=== PATIENT | male | born 1960 | race Caucasian/White ===

== ENCOUNTER 2021-06-15 12:44 | Emergency (ER) | payer SELFPAY ==
[2021-06-15 13:11] VITALS: BP 121/77; PULSE 80; RESP 16; TEMP 36.6; O2SAT 96; BMI 19.5
--- NOTE | 2021-06-15 13:23 | XR_ITS ---
WS: [id number] LEFT ELBOW: 3 VIEW(S) TECHNIQUE: AP, oblique and lateral. HISTORY: left elbow swelling COMPARISON: None available. No acute fractures or dislocation. No joint effusion. There is increased soft tissue mass and increased density is due to the olecranon extending above and below the joint. Most consistent with olecranon bursitis. XR/XR elbow LT min 3V* [id number] IMPRESSION: 1. No fracture. 2. Increased soft tissue posterior to the olecranon. Most likely due to olecra non bursitis. With recent trauma cannot exclude a small amount of hemorrhage in the bursa.
--- NOTE | 2021-06-15 13:51 | W.ED.EXTPRO ---
HPI - Extremity Problem General: Chief complaint: Extremity Injury, Upper Stated complaint: Left Elbow swollen Time Seen by Provider: 06/15/21 13:19 History of Present Illness: Patient is a 60-year-old male who comes to the ED with left elbow swelling. Patient says that approximately 2 weeks ago he hit his left elbow against a car door. Ever since then he has had this swelling on his left elbow. it is not painful and does not restrict any elbow movement. No warmth patient denies any other symptoms with it. He has tried putting cold packs and taking ibuprofen to help with swelling and he says the swelling is about the same as it was a week ago. Associated symptoms: Deny chest pain, fever(s) or rash Review of Systems Const: Denies: fever(s), chills or fatigue Eyes: Denies: change in vision or eye discomfort ENMT: Denies: throat pain, odynophagia, nasal discharge or nasal congestion Card: Denies: chest pain, palpitations, edema, swelling of feet/ankles, dyspnea on exertion or orthopnea Resp: Denies: dyspnea, productive cough or non-productive cough GI: Denies: abdominal pain, nausea, vomiting, diarrhea, constipation or hematochezia : Denies: flank pain, difficulty urinating, dysuria or hematuria Musc: Reports: extremity swelling (left elbow); Denies: neck pain or back pain Skin/Breast: Denies: rash or new lesions Neuro: Denies: headache(s), numbness in extremities or weakness in extremities PFS ED PFSH: Medical History No pertinent family history Surgical History No pertinent past surgical history Physical Exam Const: COMMON NORMALS: no acute distress, patient oriented x3, healthy appearing and alert GENERAL APPEARANCE: cooperative and comfortable HENMT: COMMON NORMALS: normocephalic HEAD & SCALP: normocephalic MOUTH: Normal oral and palatal mucosa present THROAT: posterior oropharynx normal and uvula midline Neck/C-Spine: COMMON NORMALS: supple GENERAL: Yes normal visual inspection Resp: COMMON NORMALS: normal respiratory effort, No retractions, No use of accessory muscles and clear to auscultation bilaterally AUSCULTATION: clear to auscultation bilaterally Cardio: COMMON NORMALS: regular rate, regular rhythm, S1 normal heart sound present, S2 normal heart sound present, No gallops present (Cardio), No clicks present (Cardio), No murmurs present (Cardio) and Peripheral pulses 2+ throughout RATE: regular rate RHYTHM: regular rhythm HEART SOUNDS: S1 normal heart sound present and S2 normal heart sound present PERIPHERAL PULSES: Peripheral pulses 2+ throughout GI: COMMON NORMALS: Normal to inspection, nondistended, normoactive bowel sounds present, Soft to palpation, non-tender and no masses PALPATION: Yes Soft to palpation : COMMON NORMALS: Yes no CVA tenderness BLADDER/KIDNEY EXAM: Yes no CVA tenderness Back/Pelvis: COMMON NORMALS: no CVA tenderness Extremity: NARRATIVE EXTREMITY EXAM: Left elbow?full range of motion. No erythema, tenderness or warmth around elbow joint. Palpable swollen pocket of fluid. No signs of any cellulitis or any other type of infection noted. Neuro: COMMON NORMALS: patient oriented x3 SENSORIUM/ORIENTATION: Yes alert GAIT: Yes Normal gait present Skin: GENERAL SKIN EXAM: dry skin Course Vital Signs: Vital signs: Vital Signs Temperature 97.9 F 06/15/21 13:11 Pulse Rate 80 06/15/21 13:11 Respiratory Rate 16 06/15/21 13:11 Blood Pressure 121/77 06/15/21 13:11 Pulse Oximetry 96 06/15/21 13:11 MDM - Extremity (Nontraumatic) Medical Decision Making Patient is a 60-year-old male comes to the ED with left elbow swelling. 2 weeks ago patient says he hit his elbow against a car door. Since then he has had the swelling in his elbow. Denies any pain. Patient appears nontoxic and in no acute distress or pain. Vitals stable. He has full range of motion in elbow. No erythema or warmth or any signs of infection or septic joint. Pocket of palpable fluid right over the olecranon. X-ray of left elbow shows no acute fractures or findings. Patient diagnosed with olecranon bursitis. He was discharged home and told to follow-up with his primary care physician in the next 3 to 5 days to be reevaluated to possibly have fluid drained off elbow. He was discharged with some Franklin wrap to used to compress elbow to help with swelling. Return to ED precautions given. Patient understood agree with plan. Lab Data Radiology Impressions Elbow X-Ray 06/15/21 13:23 IMPRESSION: 1. No fracture. 2. Increased soft tissue posterior to the olecranon. Most likely due to olecranon bursitis. With recent trauma cannot exclude a small amount of hemorrhage in the bursa. Discharge Plan Discharge Patient Disposition: Home Clinical Impression: Bursitis, olecranon Qualifiers: Laterality: left Qualified Code(s): M70.22 - Olecranon bursitis, left elbow Condition: Stable Prescriptions: No Action No Known Home Medications 0RF methylprednisolone [Medrol (Chip)] 4 mg tablets,dose pack See Rx Instructions PO PER PKG DIR Qty: 21 0RF Rx Instructions: PO PER PKG DIR azithromycin [Zithromax] 500 mg tablet 500 mg PO DAILY Qty: 5 0RF Ed A-Hist DM 4-10-15 mg/5 mL liquid 5 ml PO Q6H PRN (Reason: cold symptoms) Qty: 160 0RF Discharge Orders: Discharge ED (Routine); Ordered 06/15/21 Ordered By: Jose Hicks Discharge Diet: Regular Discharge Activity: Resume usual activity Patient Instructions: Elbow Bursitis (ED) Activity Restrictions/Additional Instructions: Follow-up with medical provider as directed in 5 to 7 days for reevaluation and they can possibly drain fluid out there in office. Compress elbow with Franklin wrap to try and reduce swelling. Apply cold pack as well. Return to the ER or your medical provider if condition worsens. Please read and understand discharge instructions. Thank you for choosing [facility] for your healthcare needs today. Please realize this is an emergency room and that we are providing you with a medical screening exam and this may not be complete and all inclusive of all the testing and or work up that you may need to determine your ailment or severity of your illness. It is very important that you follow up as instructed or that you return to the Emergency Department should you have concerns or if your condition changes or worsens in any way. Coding Level of Care Code ED Digital Advertising Analyst for Cory Almendarez Exam Comprehensive
== END 2021-06-15 14:50 | disposition home or self-care (01) ==
PROVIDERS: Emergency Provider Physician Assistant
DX: M70.22 Olecranon bursitis, left elbow (principal)
CPT/HCPCS: 73080; 99282

== ENCOUNTER 2021-09-01 09:38 | Emergency (ER) | payer SELFPAY ==
[2021-09-01 09:44] VITALS: BP 158/87; PULSE 67; RESP 18; TEMP 36.6; O2SAT 97; BMI 19.3
--- NOTE | 2021-09-01 09:56 | ECG_ITS ---
[facility] Test Date: 2021-09-01 Pat Name: Beto Orourke Department: Room: Gender: Male Junior Technical Writer: : 1960 Requested By: Hudson Bird Order Number: [id number] Hoffmann MD: Debra Bryant M.D. Measurements Intervals [place] Rate: 59 P: 234 HI: 181 QRS: 223 QRSD: 97 T: 244 QT: 387 QTc: 384 Interpretive Statements SINUS BRADYCARDIA POSSIBLE RIGHT VENTRICULAR HYPERTROPHY INFERIOR MYOCARDIAL INFARCTION , OF INDETERMINATE AGE No previous ECG available for comparison Electronically Signed On 09-01-2021 20:21:04 CDT by Debra Bryant M.D. [id number]
--- NOTE | 2021-09-01 09:56 | XR_ITS ---
WS: [id number] PORTABLE CHEST HISTORY: Acute onset chest pain. COMPARISON: 08/23/2018 Lungs are clear and well expanded. No pleural effusion or pneumothorax. Cardiac size: Normal. Mediastinum/Aorta: Normal mediastinum. No osseous abnormality seen. XR/XR chest 1V portable [id number] IMPRESSION: Unremarkable portable chest.
[2021-09-01] MEDS: aspirin 81 mg Chew Tablet 324 MG PO (10:00)
--- NOTE | 2021-09-01 10:05 | W.ED.CHESTPA ---
Documented by User: PAPITO Dodd 09/01/21 13:02 HPI - Chest Pain General: Chief Complaint: Chest Pain Stated Complaint: Chest pains Time Seen by Provider: 09/01/21 09:51 History of Present Illness: Patient states that he had chest pressure developed about 2 weeks ago while he was working. Said he sat down got feeling better just a couple minutes. Events happened prematurely day for short amount time especially on waking. Patient denies any shortness of breath diaphoresis or other problems. 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 Denies any other surgeries are health problems. He says pain does go down to his elbows on both sides when this happens in the morning. Denies any history of reflux. Associated symptoms: Deny abdominal pain, dyspnea, fever(s), nausea or vomiting Review of Systems Const: Denies: fever(s), chills or body aches Eyes: Denies: eye discomfort ENMT: Denies: throat pain Card: Reports: chest pain (Chest pressure like some is on his chest first occurred 2 weeks ago and is ) Resp: Denies: dyspnea GI: Denies: abdominal pain, nausea or vomiting Skin/Breast: Denies: rash Neuro: Denies: headache(s) Psych: Denies: depression or suicidal ideation PFS ED PFSH: Medical History No pertinent family history Surgical History No pertinent past surgical history Physical Exam Const: COMMON NORMALS: no acute distress, patient oriented x3 and alert HENMT: COMMON NORMALS: normocephalic and external ears normal HEAD & SCALP: normocephalic EXTERNAL EAR: Yes external ears normal Eye: COMMON NORMALS: EOMs intact bilaterally Neck/C-Spine: COMMON NORMALS: no JVD Resp: COMMON NORMALS: normal respiratory effort and No use of accessory muscles Cardio: COMMON NORMALS: no JVD GI: INSPECTION: Yes normal to inspection Extremity: COMMON NORMALS: normal to inspection and full ROM Neuro: COMMON NORMALS: patient oriented x3 SENSORIUM/ORIENTATION: Yes alert Psych: COMMON NORMALS: mental status grossly normal Skin: COMMON NORMALS: no rashes or lesions noted GENERAL SKIN EXAM: no rashes or lesions noted Course Vital Signs: Vital signs: Vital Signs Temperature 97.8 F 09/01/21 09:44 Pulse Rate 57 L 09/01/21 10:16 Respiratory Rate 18 09/01/21 09:44 Blood Pressure 157/86 09/01/21 10:16 Pulse Oximetry 94 09/01/21 10:16 MDM - Chest Pain Medical Decision Making Atypical chest pain. Laboratory studies were done radiology and EKG and no concerning findings on laboratory. EKG shows some old typical changes. Chest x-ray looks fine. Patient was was seen in consultation with Dr. Weinstein. Dr. Weinstein personally visit with the patient. Lab Data : 09/01/21 10:07 09/01/21 10:07 Radiology Impressions Chest X-Ray 09/01/21 09:56 IMPRESSION: Unremarkable portable chest. Laboratory Results WBC 8.2 10^3/uL (4.0-10.0) 09/01/21 10:07 RBC 5.17 10^6/uL (4.1-5.3) 09/01/21 10:07 Hgb 15.0 g/dL (11.7-16.6) 09/01/21 10:07 Hct 46.0 % (42.0-52.0) 09/01/21 10:07 MCV 89.0 fl (80-94) 09/01/21 10:07 MCH 29.0 pg (28.0-34.0) 09/01/21 10:07 MCHC 32.6 g/dL (30.0-36.0) 09/01/21 10:07 RDW 13.9 % (12.1-15.1) 09/01/21 10:07 Plt Count 310 10^3/cmm (130-400) 09/01/21 10:07 MPV 10.6 fL (7.4-10.4) H 09/01/21 10:07 Neut % (Auto) 54.5 % 09/01/21 10:07 Lymph % (Auto) 27.6 % 09/01/21 10:07 [place] % (Auto) 7.4 % 09/01/21 10:07 Eos % (Auto) 9.1 % 09/01/21 10:07 Baso % (Auto) 0.9 % 09/01/21 10:07 Neut # (Auto) 4.48 10^3/uL (1.8-7.7) 09/01/21 10:07 Lymph # (Auto) 2.3 10^3/uL (0.8-4.8) 09/01/21 10:07 [place] # (Auto) 0.6 10^3/uL (0.2-0.9) 09/01/21 10:07 Eos # (Auto) 0.8 10^3/uL (0.0-0.8) 09/01/21 10:07 Baso # (Auto) 0.1 10^3/uL (0.0-0.1) 09/01/21 10:07 Nucleated RBC % (auto) 0 % 09/01/21 10:07 Nucleated RBCs # 0.0 /100WBC 09/01/21 10:07 PT 13.50 SECONDS (12.1-14.9) 09/01/21 10:53 INR 1.00 (0.8-1.2) 09/01/21 10:53 D-Dimer 0.12 ug/mIFEU (0-0.59) 09/01/21 10:53 Sodium 135 mmol/L (136-145) L 09/01/21 10:07 Potassium 4.1 mmol/L (3.5-5.1) 09/01/21 10:07 Chloride 101 mmol/L (98-107) 09/01/21 10:07 Carbon Dioxide 23 mmol/L (22-29) 09/01/21 10:07 Anion Gap 15.1 (5-19) 09/01/21 10:07 BUN 17 mg/dL (8-23) 09/01/21 10:07 Creatinine 0.7 mg/dL (0.7-1.2) 09/01/21 10:07 GFR Calculation 114.3 mL/min (90-130) 09/01/21 10:07 Glucose 124 mg/dL (65-115) H 09/01/21 10:07 Calculated Osmolality 283 mOsm/kg (285-295) L 09/01/21 10:07 Calcium 8.7 mg/dL (8.5-10.5) 09/01/21 10:07 Total Bilirubin 0.2 mg/dL (0.15-1.2) 09/01/21 10:07 AST 18 U/L (0-40) 09/01/21 10:07 ALT 11 U/L (0-41) 09/01/21 10:07 Alkaline Phosphatase 75 IU/L (40-130) 09/01/21 10:07 Troponin T Baseline 9 ng/L (0-15) 09/01/21 10:07 Troponin T 120 Minute 6.80 ng/L (0-15) 09/01/21 12:12 Delta Troponin T -2.20 ABS# (0-10) L 09/01/21 12:12 Total Protein 6.5 g/dL (6.6-8.7) L 09/01/21 10:07 Albumin 4.6 g/dL (3.5-5.2) 09/01/21 10:07 Globulin 1.9 g/dL (1.3-4.6) 09/01/21 10:07 EKG Data EKG 1: EKG interpretation date: 09/01/21 EKG interpretation time: 09:44 Computer generated interpretation: Sinus bradycardia with a ventricular rate of 59 bpm possible right ventricular hypertrophy. DC interval 181 ms QRS duration 97 ms QT is 387 ms possible inferior AK with 40+ milliseconds Q wave in leads II and aVF Discharge Plan Discharge Patient Disposition: Home Clinical Impression: Chest pain Condition: Stable Prescriptions: No Action Tylenol Ex Str Rapid Release 500 mg Tablet 500 mg PO Q4H PRN (Reason: Pain) 0RF ibuprofen 200 mg Tablet 400 mg PO Q4H PRN (Reason: Pain) 0RF albuterol sulfate 90 mcg/actuation Hfa Aerosol Inhaler 2 puff INHALATION QID PRN (Reason: Shortness Of Breath) 0RF nicotine (polacrilex) 2 mg Lozenge See Rx Instructions .ROUTE .COMPLEX 0RF Rx Instructions: takes a quarter of a lozenge about 20 times a day prn Discharge Orders: Discharge ED (Routine); Ordered 09/01/21 Ordered By: Hudson Bird Discharge Diet: Usual diet Discharge Activity: Resume usual activity Patient Instructions: Chest Pain (ED) Activity Restrictions/Additional Instructions: Follow-up with medical provider as directed. Take medications as prescribed. Return to the ER or your medical provider if condition worsens. Please read and understand discharge instructions. If any questions ask please. Discussed your primary care provider see about getting appoint with cardiology to talk about a stress test Our onsite case manager will have you follow-up with a Woodwork Teacher in the next few days. You would be expected to have a phone call with our onsite case manager who will put you on the schedule. You can expect a call from us in the next 2-3 days. If you don't hear from us, call us back in the emergency room at [phone]. Come back to the emergency room if your chest pain worsens, have any fever or chills, worsening shortness of breath, worsening exertional lightheadedness, or any new or concerning complaints. Coding Level of Care Code ED Assistant Grocery for Chg Fwd Exam Comprehensive Documented by User: Tim Weinstein MD 09/01/21 18:39 HPI - Chest Pain General: Chief Complaint: Chest Pain Stated Complaint: Chest pains Time Seen by Provider: 09/01/21 09:51 PENDING SALE TO [facility] ED PFSH: Medical History No pertinent family history Surgical History No pertinent past surgical history Course Vital Signs: Vital signs: Vital Signs Temperature 97.8 F 09/01/21 09:44 Pulse Rate 57 L 09/01/21 10:16 Respiratory Rate 18 09/01/21 09:44 Blood Pressure 157/86 09/01/21 10:16 Pulse Oximetry 94 09/01/21 10:16 MDM - Chest Pain Medical Decision Making Atypical chest pain. Laboratory studies were done radiology and EKG and no concerning findings on laboratory. EKG shows some old typical changes. Chest x-ray looks fine. Patient was was seen in consultation with Dr. Weinstein. Dr. Weinstein personally visit with the patient. Dr. Js Duran evaluated patient at bedside today around 1 PM. Patient clinically looks well and has not complain of chest pain. Patient has 2 troponin within normal limit. On EKG review, patient is noted to have Q waves in the anterior leads. Suspect that these are chronic changes. Patient does not have any ST elevation/T wave inversion/ new T wave inversions.Normally in his case, we would admit the patient for cardiac work-up. I offered observation but patient declined citing strong desire to go home. Patient elects to go home with close Cardiology followup. Patient she was to go home, have discussed case with Dr. Omar Meza who recommended close outpatient follow-up. Patient is given strict return precaution for any signs of worsening chest pain, nausea vomiting, fever/chills, diaphoresis, passing out, or any new or concerning complaints. No suspicion for aortic dissection given no widened mediastinum, 2+ upper extremity pulses, or tearing pain. No suspicion for PE given no pleuritic chest pain, recent immobilization or surgery hemoptysis, or other VTE risk factors. EKG is non-ischemic. XR normal. I have given patient follow up with our onsite case manager to be seen by our outpatient Cardiology for close followup of chest pain. Patient aware of a call from our onsite case manager to schedule for appointment(s) and verbalizes understanding of the importance of following up. Lab Data : 09/01/21 10:07 09/01/21 10:07 Radiology Impressions Chest X-Ray 09/01/21 09:56 IMPRESSION: Unremarkable portable chest. Laboratory Results WBC 8.2 10^3/uL (4.0-10.0) 09/01/21 10:07 RBC 5.17 10^6/uL (4.1-5.3) 09/01/21 10:07 Hgb 15.0 g/dL (11.7-16.6) 09/01/21 10:07 Hct 46.0 % (42.0-52.0) 09/01/21 10:07 MCV 89.0 fl (80-94) 09/01/21 10:07 MCH 29.0 pg (28.0-34.0) 09/01/21 10:07 MCHC 32.6 g/dL (30.0-36.0) 09/01/21 10:07 RDW 13.9 % (12.1-15.1) 09/01/21 10:07 Plt Count 310 10^3/cmm (130-400) 09/01/21 10:07 MPV 10.6 fL (7.4-10.4) H 09/01/21 10:07 Neut % (Auto) 54.5 % 09/01/21 10:07 Lymph % (Auto) 27.6 % 09/01/21 10:07 [place] % (Auto) 7.4 % 09/01/21 10:07 Eos % (Auto) 9.1 % 09/01/21 10:07 Baso % (Auto) 0.9 % 09/01/21 10:07 Neut # (Auto) 4.48 10^3/uL (1.8-7.7) 09/01/21 10:07 Lymph # (Auto) 2.3 10^3/uL (0.8-4.8) 09/01/21 10:07 [place] # (Auto) 0.6 10^3/uL (0.2-0.9) 09/01/21 10:07 Eos # (Auto) 0.8 10^3/uL (0.0-0.8) 09/01/21 10:07 Baso # (Auto) 0.1 10^3/uL (0.0-0.1) 09/01/21 10:07 Nucleated RBC % (auto) 0 % 09/01/21 10:07 Nucleated RBCs # 0.0 /100WBC 09/01/21 10:07 PT 13.50 SECONDS (12.1-14.9) 09/01/21 10:53 INR 1.00 (0.8-1.2) 09/01/21 10:53 D-Dimer 0.12 ug/mIFEU (0-0.59) 09/01/21 10:53 Sodium 135 mmol/L (136-145) L 09/01/21 10:07 Potassium 4.1 mmol/L (3.5-5.1) 09/01/21 10:07 Chloride 101 mmol/L (98-107) 09/01/21 10:07 Carbon Dioxide 23 mmol/L (22-29) 09/01/21 10:07 Anion Gap 15.1 (5-19) 09/01/21 10:07 BUN 17 mg/dL (8-23) 09/01/21 10:07 Creatinine 0.7 mg/dL (0.7-1.2) 09/01/21 10:07 GFR Calculation 114.3 mL/min (90-130) 09/01/21 10:07 Glucose 124 mg/dL (65-115) H 09/01/21 10:07 Calculated Osmolality 283 mOsm/kg (285-295) L 09/01/21 10:07 Calcium 8.7 mg/dL (8.5-10.5) 09/01/21 10:07 Total Bilirubin 0.2 mg/dL (0.15-1.2) 09/01/21 10:07 AST 18 U/L (0-40) 09/01/21 10:07 ALT 11 U/L (0-41) 09/01/21 10:07 Alkaline Phosphatase 75 IU/L (40-130) 09/01/21 10:07 Troponin T Baseline 9 ng/L (0-15) 09/01/21 10:07 Troponin T 120 Minute 6.80 ng/L (0-15) 09/01/21 12:12 Delta Troponin T -2.20 ABS# (0-10) L 09/01/21 12:12 Total Protein 6.5 g/dL (6.6-8.7) L 09/01/21 10:07 Albumin 4.6 g/dL (3.5-5.2) 09/01/21 10:07 Globulin 1.9 g/dL (1.3-4.6) 09/01/21 10:07 Imaging Data Other Imaging: Radiologist's impression: [address] [place] [address] XRay Report Signed Patient: Beto Orourke Unit #: [id number] : 1960 Age/Sex: 61 / M ADM Date: 09/01/21 Loc: ER Room/Bed: Attending Dr: Ordering Provider/Ordering MD: Flaco Bird , [facility]- Date of Service: 09/01/21 Procedure(s): XR chest 1V portable [id number] Accession Number(s): [id number] Report Number: [id number] WS: [id number] PORTABLE CHEST HISTORY: Acute onset chest pain. COMPARISON: 08/23/2018 Lungs are clear and well expanded. No pleural effusion or pneumothorax. Cardiac size: Normal. Mediastinum/Aorta: Normal mediastinum. No osseous abnormality seen. XR/XR chest 1V portable [id number] IMPRESSION: ? Unremarkable portable chest. ? ? ? Dictated By: Hope Pettit DO Signed By: Hope Pettit DO Signed Date/Time: 09/01/21 1018 DD/ 1017 Discharge Plan Discharge Patient Disposition: Home Clinical Impression: Chest pain Condition: Stable Prescriptions: No Action Tylenol Ex Str Rapid Release 500 mg Tablet 500 mg PO Q4H PRN (Reason: Pain) 0RF ibuprofen 200 mg Tablet 400 mg PO Q4H PRN (Reason: Pain) 0RF albuterol sulfate 90 mcg/actuation Hfa Aerosol Inhaler 2 puff INHALATION QID PRN (Reason: Shortness Of Breath) 0RF nicotine (polacrilex) 2 mg Lozenge See Rx Instructions .ROUTE .COMPLEX 0RF Rx Instructions: takes a quarter of a lozenge about 20 times a day prn Discharge Orders: Discharge ED (Routine); Ordered 09/01/21 Ordered By: Hudson Bird Discharge Diet: Usual diet Discharge Activity: Resume usual activity Patient Instructions: Chest Pain (ED) Activity Restrictions/Additional Instructions: Follow-up with medical provider as directed. Take medications as prescribed. Return to the ER or your medical provider if condition worsens. Please read and understand discharge instructions. If any questions ask please. Discussed your primary care provider see about getting appoint with cardiology to talk about a stress test Our onsite case manager will have you follow-up with a Woodwork Teacher in the next few days. You would be expected to have a phone call with our onsite case manager who will put you on the schedule. You can expect a call from us in the next 2-3 days. If you don't hear from us, call us back in the emergency room at [phone]. Come back to the emergency room if your chest pain worsens, have any fever or chills, worsening shortness of breath, worsening exertional lightheadedness, or any new or concerning complaints. Coding Level of Care Code ED Assistant Grocery for Cory Almendarez Exam Comprehensive
[2021-09-01 10:16] VITALS: BP 157/86; PULSE 57; O2SAT 94
[2021-09-01 10:19] LABS: Basophils # 0.1 10^3/uL (0.0-0.1); Basophils % 0.9 %; Eosinophils # 0.8 10^3/uL (0.0-0.8); Eosinophils % 9.1 %; Lymphocytes # 2.3 10^3/uL (0.8-4.8); Lymphocytes % 27.6 %; Mean Corpuscular HGB Conc 32.6 g/dL (30.0-36.0); Mean Platelet Volume 10.6 fL (7.4-10.4); Monocytes # 0.6 10^3/uL (0.2-0.9); Monocytes % 7.4 %; Neutrophils # 4.48 10^3/uL (1.8-7.7); Neutrophils % 54.5 %; Nucleated Red Blood Cells % 0 %; Platelet Count 310 10^3/cmm (130-400); Red Blood Count 5.17 10^6/uL (4.1-5.3); Red Cell Distribution Width 13.9 % (12.1-15.1); White Blood Count 8.2 10^3/uL (4.0-10.0)
[2021-09-01 10:45] LABS: Alanine Aminotransferase 11 U/L (0-41); Albumin Level 4.6 g/dL (3.5-5.2); Alkaline Phosphatase 75 IU/L (40-130); Anion Gap 15.1 (5-19); Aspartate Amino Transferase 18 U/L (0-40); Blood Urea Nitrogen 17 mg/dL (8-23); Calcium 8.7 mg/dL (8.5-10.5); Carbon Dioxide 23 mmol/L (22-29); Chloride 101 mmol/L (98-107); Globulin 1.9 g/dL (1.3-4.6); Glomerular Filtration Rate 114.3 mL/min (90-130); Glucose 124 mg/dL (65-115); Osmolality Calculated 283 mOsm/kg (285-295); Potassium 4.1 mmol/L (3.5-5.1); Sodium 135 mmol/L (136-145); Total Bilirubin 0.2 mg/dL (0.15-1.2); Total Protein 6.5 g/dL (6.6-8.7)
[2021-09-01 10:48] LABS: Troponin(5th) Baseline 9 ng/L (0-15)
[2021-09-01 11:53] LABS: D Dimer 0.12 ug/mIFEU (0-0.59)
--- NOTE | 2021-09-01 11:56 | ECG_ITS ---
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 Measurements Intervals [place] Rate: 57 P: CO: QRS: 74 QRSD: 91 T: 83 QT: 386 QTc: 377 Interpretive Statements SUPRAVENTRICULAR BRADYCARDIA SEPTAL MYOCARDIAL INFARCTION , PROBABLY OLD [40+ ms Q WAVE IN V1/V2] No previous ECG available for comparison Electronically Signed On 09-01-2021 20:54:44 CDT by Debra Bryant M.D. [email or web address] ([id number]
--- NOTE | 2021-09-04 15:08 | DCPLANNER ---
Addendum entered by Meseret Azevedo 12/27/21 12:23: patient had a follow up appointment scheduled for heart care - patient did attend appointment. Addendum entered by Meseret Azevedo 09/07/21 10:53: Patient has a follow up appointment scheduled for , October 26, [address] at 1:[address] Baer. Clinic will call patient with appointment information. Original Note: employment case manager had message to schedule a follow up appointment for patient with heart care. employment case manager sent patients information to the front office staff at heart care. Patients information will be printed and reviewed. Clinic will call patient with appointment information.
== END 2021-09-01 13:28 | disposition home or self-care (01) ==
PROVIDERS: Emergency Provider Nurse Practitioner Family
DX: R07.89 Other chest pain (principal); F17.200 Nicotine dependence, unspecified, uncomplicated; Z96.0 Presence of urogenital implants
CPT/HCPCS: 71045; 80053; 84484; 85025; 85378; 85610; 93005; 99283

== ENCOUNTER 2021-09-09 10:11 | Observation (INO) | payer MEDICAID, SELFPAY ==
[2021-09-09] VITALS (13 sets, daily range): BP systolic 115–173; BP diastolic 75–101; PULSE 55–89; RESP 16–22; TEMP 36.8; O2SAT 93–96
--- NOTE | 2021-09-09 10:16 | ECG_ITS ---
[facility] Test Date: 2021-09-09 Pat Name: Beto Orourke Department: Room: Gender: Male Assistant Corporate Secretary: : 1960 Requested By: Diaz Agustin Order Number: [id number] Shun MD: Tiff Tabares M.D. Measurements Intervals [place] Rate: 63 P: 72 MS: 203 QRS: 84 QRSD: 92 T: -9 QT: 367 QTc: 376 Interpretive Statements SINUS RHYTHM MINIMAL ST DEPRESSION [0.025+ mV ST DEPRESSION] ABNORMAL QRS-T ANGLE [QRS-T AXIS DIFFERENCE > 60] Compared to ECG 09/01/2021 11:52:17 ST (T wave) deviation now present Myocardial infarct finding no longer present Electronically Signed On 09-09-2021 21:59:35 CDT by Tiff Tabares M.D. [id number]
--- NOTE | 2021-09-09 10:16 | XRR_ITS ---
PROCEDURE INFORMATION: Exam: XR Chest Exam date and time: 09/09/2021 10:30 AM Age: 61 years old Clinical indication: Cough and dyspnea; Additional info: Dyspnea/cough TECHNIQUE: Imaging protocol: XR of the chest. Views: 1 view. COMPARISON: CR XR chest 1V portable [id number] 09/01/2021 10:15 AM FINDINGS: Lungs: Unremarkable. No consolidation. Pleural spaces: Unremarkable. No pleural effusion. No pneumothorax. Heart/Mediastinum: Unremarkable. No cardiomegaly. Bones/joints: Unremarkable. XR/XR chest 1V portable [id number] IMPRESSION: No acute findings.
[2021-09-09 10:54] LABS: Basophils # 0.1 10^3/uL (0.0-0.1); Basophils % 0.5 %; Eosinophils # 0.7 10^3/uL (0.0-0.8); Eosinophils % 4.1 %; Hematocrit 50.1 % (42.0-52.0); Hemoglobin 16.2 g/dL (11.7-16.6); Lymphocytes # 2.5 10^3/uL (0.8-4.8); Lymphocytes % 14.9 %; Mean Corpuscular HGB Conc 32.3 g/dL (30.0-36.0); Mean Corpuscular Hemoglobin 28.7 pg (28.0-34.0); Mean Corpuscular Volume 88.8 fl (80-94); Mean Platelet Volume 10.4 fL (7.4-10.4); Monocytes # 0.9 10^3/uL (0.2-0.9); Monocytes % 5.6 %; Neutrophils # 12.44 10^3/uL (1.8-7.7); Neutrophils % 74.5 %; Nucleated Red Blood Cells % 0 %; Platelet Count 278 10^3/cmm (130-400); Red Blood Count 5.64 10^6/uL (4.1-5.3); Red Cell Distribution Width 14.2 % (12.1-15.1); White Blood Count 16.7 10^3/uL (4.0-10.0)
[2021-09-09 11:29] LABS: Protein Urine Trace (Negative); Specific Gravity, Urine 1.015 (1.005-1.030); Urine Appearance Clear (CLEAR); Urine Color Straw (Yellow); pH Urine 7 (5-7)
[2021-09-09 11:30] LABS: Add Urine Microscopic? YES; Bilirubin Urine Neg (Negative); Blood Urine Neg (Negative); Glucose Urine UA Norm (Normal); Ketones Urine Negative (Negative); Leukocyte Esterase Urine Negative (Negative); Nitrate Urine Negative (Negative); Urobilinogen Urine Norm (Negative)
[2021-09-09 11:31] LABS: Add Urine Culture? No; Amorphous Sediment Urine 1+ /hpf; Bacteria Urine TRACE /hpf
[2021-09-09 11:34] LABS: Alanine Aminotransferase 18 U/L (0-41); Albumin Level 4.4 g/dL (3.5-5.2); Alkaline Phosphatase 66 IU/L (40-130); Anion Gap 14.5 (5-19); Aspartate Amino Transferase 21 U/L (0-40); Blood Urea Nitrogen 20 mg/dL (8-23); Calcium 9.3 mg/dL (8.5-10.5); Carbon Dioxide 24 mmol/L (22-29); Chloride 99 mmol/L (98-107); Creatine Phosphokinase 59 U/L (39-308); Creatinine Clr Calc Pharmacy 85.9936; Globulin 1.8 g/dL (1.3-4.6); Glucose 104 mg/dL (65-115); Osmolality Calculated 279 mOsm/kg (285-295); Potassium 4.5 mmol/L (3.5-5.1); Sodium 133 mmol/L (136-145); Total Bilirubin 0.2 mg/dL (0.15-1.2); Total Protein 6.2 g/dL (6.6-8.7)
[2021-09-09 11:36] LABS: Troponin(5th) Baseline 14 ng/L (0-15)
--- NOTE | 2021-09-09 12:11 | ED_ITS ---
HPI - Chest Pain General: Chief Complaint: Chest Pain Stated Complaint: was nonresponsive; chest pain Time Seen by Provider: 09/09/21 10:15 Source: patient Mode of arrival: ambulatory Limitations: no limitations History of Present Illness: 59-year-old male presents emergency room with chest pain that began around 6 AM this morning resolved in about 10 seconds. A recurrent episode on 8 that lasted longer she states he passed out on his feet for about a minute. On arrival here he has no chest pain but still complains of discomfort in his left arm. Patient has had this on and off for about a week now. He was seen previously work-up was negative and he was set for an outpatient stress test does not yet been completed he has no known history of coronary disease. 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 He does smoke regularly but does no known history of coronary artery disease MD complaint: chest pain Onset (ago): week(s) (1) Timing of current episode: episodic Prior episodes: Yes Onset: during rest Pain location: substernal and left chest Pain radiation: left arm Severity: severe Quality: sharp Relieving factors: nothing Exacerbating factors: nothing Associated symptoms: Reports dyspnea and nausea; Deny abdominal pain, diaphoresis, fever(s), leg edema, palpitations, sense of impending doom, syncope or vomiting Treatment prior to arrival: aspirin Review of Systems Const: Denies: fever(s), chills, body aches, fatigue, malaise or diaphoresis ENMT: Denies: throat pain, ear or mastoid pain, nasal discharge or nasal congestion Card: Reports: chest pain; Denies: palpitations, irregular heart rhythm, edema, swelling of feet/ankles or syncope Resp: Reports: dyspnea; Denies: productive cough or non-productive cough GI: Reports: nausea; Denies: abdominal pain or vomiting : Denies: flank pain, difficulty urinating, dysuria, urinary frequency or urinary urgency Musc: Denies: neck pain or back pain Skin/Breast: Denies: rash or pruritus [facility], [facility] ED PFSH: Medical History History of COPD History of stent insertion of renal artery No pertinent family history Renal artery stenosis Surgical History No pertinent past surgical history Family History Father CAD (coronary artery disease) Mother CAD (coronary artery disease) Social History Smoking and tobacco status: former smoker Alcohol intake: never Substance/Drug Use: never Physical Exam Const: COMMON NORMALS: no acute distress GENERAL APPEARANCE: cooperative and comfortable ORIENTATION/CONSCIOUSNESS: Yes awake, Yes oriented to person, Yes oriented to place and Yes oriented to time HENMT: COMMON NORMALS: normocephalic, atraumatic and hearing grossly normal bilaterally HEAD & SCALP: normocephalic and atraumatic Neck/C-Spine: COMMON NORMALS: no JVD Resp: COMMON NORMALS: normal respiratory effort, No retractions, No use of accessory muscles and clear to auscultation bilaterally AUSCULTATION: clear to auscultation bilaterally Cardio: COMMON NORMALS: no JVD, regular rate, regular rhythm and No murmurs present (Cardio) RATE: regular rate RHYTHM: regular rhythm GI: COMMON NORMALS: Soft to palpation and No hepatosplenomegaly present AUSCULTATION: Yes normoactive bowel sounds PALPATION: Yes Soft to palpation, No Tenderness to palpation present (GI), No Guarding due to palpation present (GI) and Yes No hepatosplenomegaly present Extremity: COMMON NORMALS: normal to inspection, capillary refill normal, no clubbing, cyanosis or edema, no calf tenderness and no pedal edema Neuro: SENSORIUM/ORIENTATION: Yes oriented to person, Yes oriented to place and Yes oriented to time Skin: COMMON NORMALS: no rashes or lesions noted GENERAL SKIN EXAM: no rashes or lesions noted Course Vital Signs: Vital signs: Vital Signs Pulse Rate 55 L 09/09/21 12:07 Respiratory Rate 18 09/09/21 12:07 Blood Pressure 115/75 09/09/21 12:07 Pulse Oximetry 94 09/09/21 12:07 MDM - Chest Pain Medical Decision Making Patient's symptoms do not sound convincingly cardiac however they are escalating in nature and intensity. He has a bump in his troponin. He does have significant risk factors there is a little bit of ST depression with a flipped T wave in lead III. He is not having any chest pain at this time he did receive aspirin prior to arrival put topical nitro and the patient given Lovenox margo with hospitalist will admit echo ordered Medical Records I reviewed the patient's medical records. Lab Data : 09/09/21 10:47 09/09/21 11:05 Radiology Impressions Chest X-Ray 09/09/21 10:16 IMPRESSION: No acute findings. Laboratory Results WBC 16.7 10^3/uL (4.0-10.0) H 09/09/21 10:47 RBC 5.64 10^6/uL (4.1-5.3) H 09/09/21 10:47 Hgb 16.2 g/dL (11.7-16.6) 09/09/21 10:47 Hct 50.1 % (42.0-52.0) 09/09/21 10:47 MCV 88.8 fl (80-94) 09/09/21 10:47 MCH 28.7 pg (28.0-34.0) 09/09/21 10:47 MCHC 32.3 g/dL (30.0-36.0) 09/09/21 10:47 RDW 14.2 % (12.1-15.1) 09/09/21 10:47 Plt Count 278 10^3/cmm (130-400) 09/09/21 10:47 MPV 10.4 fL (7.4-10.4) 09/09/21 10:47 Neut % (Auto) 74.5 % 09/09/21 10:47 Lymph % (Auto) 14.9 % 09/09/21 10:47 Mclennan % (Auto) 5.6 % 09/09/21 10:47 Eos % (Auto) 4.1 % 09/09/21 10:47 Baso % (Auto) 0.5 % 09/09/21 10:47 Neut # (Auto) 12.44 10^3/uL (1.8-7.7) H 09/09/21 10:47 Lymph # (Auto) 2.5 10^3/uL (0.8-4.8) 09/09/21 10:47 Mclennan # (Auto) 0.9 10^3/uL (0.2-0.9) 09/09/21 10:47 Eos # (Auto) 0.7 10^3/uL (0.0-0.8) 09/09/21 10:47 Baso # (Auto) 0.1 10^3/uL (0.0-0.1) 09/09/21 10:47 Nucleated RBC % (auto) 0 % 09/09/21 10:47 Nucleated RBCs # 0.0 /100WBC 09/09/21 10:47 Sodium 133 mmol/L (136-145) L 09/09/21 11:05 Potassium 4.5 mmol/L (3.5-5.1) 09/09/21 11:05 Chloride 99 mmol/L (98-107) 09/09/21 11:05 Carbon Dioxide 24 mmol/L (22-29) 09/09/21 11:05 Anion Gap 14.5 (5-19) 09/09/21 11:05 BUN 20 mg/dL (8-23) 09/09/21 11:05 Creatinine 0.8 mg/dL (0.7-1.2) 09/09/21 11:05 GFR Calculation 98.0 mL/min (90-130) 09/09/21 11:05 Glucose 104 mg/dL (65-115) 09/09/21 11:05 Calculated Osmolality 279 mOsm/kg (285-295) L 09/09/21 11:05 Calcium 9.3 mg/dL (8.5-10.5) 09/09/21 11:05 Total Bilirubin 0.2 mg/dL (0.15-1.2) 09/09/21 11:05 AST 21 U/L (0-40) 09/09/21 11:05 ALT 18 U/L (0-41) 09/09/21 11:05 Alkaline Phosphatase 66 IU/L (40-130) 09/09/21 11:05 Creatine Kinase 59 U/L (39-308) 09/09/21 11:05 Troponin T Baseline 14 ng/L (0-15) 09/09/21 11:05 Troponin T 120 Minute 23.49 ng/L (0-15) H 09/09/21 13:07 Delta Troponin T 9.49 ABS# (0-10) 09/09/21 13:07 Total Protein 6.2 g/dL (6.6-8.7) L 09/09/21 11:05 Albumin 4.4 g/dL (3.5-5.2) 09/09/21 11:05 Globulin 1.8 g/dL (1.3-4.6) 09/09/21 11:05 Urine Color Straw (Yellow) 09/09/21 11:05 Urine Appearance Clear (CLEAR) 09/09/21 11:05 Urine pH 7 (5-7) 09/09/21 11:05 Ur Specific Newcomb 1.015 (1.005-1.030) 09/09/21 11:05 Urine Protein Trace (Negative) 09/09/21 11:05 Urine Glucose (UA) Norm (Normal) 09/09/21 11:05 Urine Ketones Negative (Negative) 09/09/21 11:05 Urine Blood Neg (Negative) 09/09/21 11:05 Urine Nitrate Negative (Negative) 09/09/21 11:05 Urine Bilirubin Neg (Negative) 09/09/21 11:05 Urine Urobilinogen Norm mg/dL (Negative) 09/09/21 11:05 Ur Leukocyte Esterase Negative (Negative) 09/09/21 11:05 Urine RBC None /hpf (0-2) 09/09/21 11:05 Urine WBC None /hpf (0-5) 09/09/21 11:05 Ur Squamous Epith Cells None /hpf (0-5) 09/09/21 11:05 Amorphous Sediment 1+ /hpf 09/09/21 11:05 Urine Bacteria Trace /hpf (NONE) 09/09/21 11:05 Discharge Plan Discharge Patient Disposition: Placed in Observation Admit Provider: Fernando Fox Clinical Impression: Chest pain, COPD (chronic obstructive pulmonary disease), Elevated troponin Condition: Stable Coding Level of Care Code ED Counter Caser for Cory Almendarez
--- NOTE | 2021-09-09 12:16 | ECG_ITS ---
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 Measurements Intervals [place] Rate: 52 P: 71 NH: 207 QRS: 83 QRSD: 92 T: -5 QT: 379 QTc: 354 Interpretive Statements SINUS BRADYCARDIA MODERATE ST DEPRESSION [0.05+ mV ST DEPRESSION] ABNORMAL QRS-T ANGLE [QRS-T AXIS DIFFERENCE > 60] Compared to ECG 09/09/2021 10:35:04 Sinus rhythm no longer present ST (T wave) deviation still present Electronically Signed On 09-09-2021 22:02:47 CDT by Tiff Tabares M.D. [id number]
[2021-09-09 13:33] LABS: Troponin 5 2HR 23.49 ng/L (0-15)
[2021-09-09 13:34] LABS: Troponin 5 2HR Delta 9.49 ABS# (0-10)
[2021-09-09] MEDS: enoxaparin 80 mg/0.8 mL Syringe 70 MG SUBCUT (14:02)
[2021-09-09] MEDS: nitroglycerin 1 gm/inch oint Pkt 0.5 INCH TOPICAL (14:14)
--- NOTE | 2021-09-09 15:18 | PM.HP ---
Providers/Chief Complaint Admitting Physician: Fernando Fox MD Chief Complaint: was nonresponsive; chest pain History of Present Illness Beto Eldridge Stone is a 61 year old male with a past medical history of renal artery stenosis status post stenting on the right, COPD, hypertension not on any medication, who presents to [facility] due to chest pain since August 22. Patient states that the day after his birthday, he started to develop substernal chest pain, he describes the pain like a pressure-like pain like something sitting on his chest, sometimes radiating down his left arm, symptoms down bilateral arms, associate with heaviness, radiating up the left neck, some associated shortness of breath, no lightheadedness, dizziness, no nausea, no vomiting, no diaphoresis. No fever, no cough, no sick contacts, does have wheezing, does has a history of COPD, quit smoking many years ago, has over [id number] history of smoking. Does have extensive family history of CAD. He tells me that the chest pain has becoming more severe, more frequent so he came to the emergency room for evaluation. Currently chest pain-free Review of Systems Const: Denies: fever(s), chills, fatigue or malaise Eyes: Denies: change in vision or blurry vision Card: Reports: chest pain; Denies: palpitations, irregular heart rhythm, edema, swelling of feet/ankles, lightheadedness or dyspnea on exertion Resp: Denies: dyspnea, productive cough, non-productive cough or wheezing GI: Denies: abdominal pain, nausea, vomiting, hematemesis, diarrhea or constipation : Denies: flank pain, difficulty urinating, dysuria or urinary frequency Musc: Denies: neck pain or back pain Skin/Breast: Denies: rash Neuro: Denies: headache(s), dizziness or vertigo Endo: Denies: polyuria or polydipsia Medications/Allergies Home Medications Medication Instructions Recorded Confirmed Last Taken Type acetaminophen 500 mg tablet 500 mg PO Q4H PRN 09/01/21 09/09/21 08/31/21 History albuterol sulfate 90 mcg/actuation 2 puff INHALATION QID PRN 09/01/21 09/09/21 Unknown History aerosol inhaler ibuprofen 200 mg tablet 400 mg PO Q4H PRN 09/01/21 09/09/21 08/31/21 History Allergies Allergy/AdvReac Type Severity Reaction Status Date / Time naproxen [From Aleve] Allergy UNKNOWN Verified 09/01/21 10:05 PFSH Acute PFSH: Medical History (Updated 09/09/21 @ 15:23 by Fernando Fox MD) History of COPD History of stent insertion of renal artery No pertinent family history Renal artery stenosis Surgical History No pertinent past surgical history Family History (Updated 09/09/21 @ 15:22 by Fernando Fox MD) Father CAD (coronary artery disease) Mother CAD (coronary artery disease) Social History (Updated 09/09/21 @ 15:21 by Fernando Fox MD) Smoking and tobacco status: former smoker Alcohol intake: never Substance/Drug Use: never Vitals/I&O/Wt Last Vital Signs Pulse 55 L 09/09/21 12:07 Resp 18 09/09/21 12:07 BP 115/75 09/09/21 12:07 Pulse Ox 94 09/09/21 12:07 Weight last 48 hrs Weight 63.503 kg Physical Exam Const: COMMON NORMALS: no acute distress and patient oriented x3 HENMT: COMMON NORMALS: normocephalic HEAD & SCALP: normocephalic Eye: COMMON NORMALS: Equal, round and reactive pupils present Neck/C-Spine: COMMON NORMALS: no JVD Lymph: LYMPHATIC: no lymphadenopathy noted Resp: COMMON NORMALS: normal respiratory effort, No retractions, No use of accessory muscles and clear to auscultation bilaterally AUSCULTATION: clear to auscultation bilaterally Cardio: COMMON NORMALS: no JVD, regular rate, regular rhythm, S1 normal heart sound present and S2 normal heart sound present RATE: regular rate RHYTHM: regular rhythm HEART SOUNDS: S1 normal heart sound present and S2 normal heart sound present GI: COMMON NORMALS: Normal to inspection, nondistended, normoactive bowel sounds present, Soft to palpation, non-tender, No hepatosplenomegaly present, no masses and no bruits PALPATION: Yes Soft to palpation and Yes No hepatosplenomegaly present Extremity: COMMON NORMALS: capillary refill normal, no clubbing, cyanosis or edema, no calf tenderness and no pedal edema Neuro: COMMON NORMALS: patient oriented x3, CN's II-XII intact bilaterally, moves all extremities, no focal motor deficits and no sensory deficits noted Psych: COMMON NORMALS: mental status grossly normal Data : 09/09/21 10:47 09/09/21 11:05 A&P Assessment and plan (1) Chest pain: Status: Acute (2) COPD exacerbation: Status: Acute Plan Chest pain -Serial EKGs, serial troponins -Telemetry monitoring -Cardiac echo -Aspirin, statin, nitro as needed, Coreg -Therapeutic Lovenox -Full code -Lovenox for DVT prophylaxis -Monitor for chest pain COPD exacerbation, prednisone burst, DuoNeb Attestations Medical Necessity Statement*: Patient requires hospitalization for chest pain, outpatient with observation Coding Level of Care Code Acute Traffic Law Attorney for Cory Almendarez Diagnoses Chest pain R07.9 COPD exacerbation J44.1
--- NOTE | 2021-09-09 15:30 | USCV_ITS ---
Beto Orourke Age: 61 Gender: M : 1960 Exam Date: 09/09/2021 16:26 Ordering Phys: Diaz Larsen DO Technologist: Wing Jim Exam Location: [facility] [place] Indication: chest pain elevated troponin BP: 122 / 74 HR: 64 Rhythm: Sinus Technical Quality: Adequate MEASUREMENTS (Male / Female) Normal Values 2D ECHO LV Diastolic Diameter PLAX 3.1 cm 4.2 - 5.9 / 3.9 - 5.3 cm LV Systolic Diameter PLAX 2.4 cm IVS Diastolic Thickness 0.9 cm 0.6 - 1.0 / 0.6 - 0.9 cm IVS Systolic Thickness 1.2 cm LVPW Diastolic Thickness 1.0 cm 0.6 - 1.0 / 0.6 - 0.9 cm LVPW Systolic Thickness 1.3 cm LVOT Diameter 2.0 cm LV Ejection Fraction 2D Teich 48.7 % LV Ejection Fraction MOD 2C 50.8 % LV Ejection Fraction 2C AL 48.8 % LA Diameter 3.4 cm Aorta at Sinotubular Diameter 2.7 cm M-MODE Aortic Annulus Diameter 3.4 cm LA Ao Ratio MM 0.9 DOPPLER AV Peak Velocity 129.0 cm/s LVOT Peak Velocity 77.0 cm/s AV Area Cont Eq vti 2.1 cm squared AV Area Cont Eq pk 1.9 cm squared MV Area PHT 2.7 cm squared Mitral E to A Ratio 0.9 MV E' Velocity 32.0 cm/s Mitral E to MV E' Ratio 5.6 Mitral E to LV E' Lateral Ratio 4.8 Mitral E to LV E' Septal Ratio 6.5 TR Peak Velocity 158.0 cm/s TR Peak Gradient 10.0 mmHg TV Peak E Velocity 69.0 cm/s Right Atrial Pressure 3.0 mmHg Pulmonary Artery Systolic Pressu 13.0 mmHg PV Peak Velocity 118.0 cm/s FINDINGS Left Ventricle Normal LV size with borderline low ejection fraction of 50%. Moderate hypokinesis of the inferobasal segment. Right Ventricle Normal right ventricular size and systolic function. Right Atrium The right atrium is normal in size. Left Atrium The left atrium is normal in size. Mitral Valve Thickened mitral valve. Aortic Valve No gross abnormalities noted Tricuspid Valve No gross abnormalities noted Pulmonic Valve No gross abnormalities noted Pericardium No pericardial effusion. Aorta Normal ascending aorta dimension. CONCLUSIONS Normal LV size with borderline low ejection fraction of 50%. Moderate hypokinesis of the inferobasal segment. Thickened mitral valve. There is no pericardial effusion. There are no intracardiac masses. No similar previous studies are available for comparison Dr Tiff Tabares MD [facility] (Electronically Signed) Final Date: 09 Sep 2021 21:18 S
[2021-09-09 15:50] LABS: D Dimer <= 0.27 ug/mIFEU (0-0.59)
[2021-09-09 15:58] LABS: Erythrocyte Sedimentation Rate 14 mm/hr (0-10)
[2021-09-09] MEDS: ipratropium-albuterol 3 mL Neb INHALATION ×2 (15:58→20:53)
[2021-09-09 16:15] LABS: NT Pro B Type Natriuretic Pept 22 pg/mL (0-125)
--- NOTE | 2021-09-09 16:16 | ECG_ITS ---
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 Measurements Intervals [place] Rate: 66 P: 71 NH: 201 QRS: 81 QRSD: 92 T: -9 QT: 367 QTc: 387 Interpretive Statements SINUS RHYTHM NONSPECIFIC T-WAVE ABNORMALITY Compared to ECG 09/09/2021 12:14:26 T-wave abnormality now present Sinus bradycardia no longer present ST (T wave) deviation no longer present Electronically Signed On 09-09-2021 22:04:01 CDT by Tiff Tabares M.D. [id number]
[2021-09-09] MEDS: pantoprazole 40 mg SDV IVP (16:39)
[2021-09-09] MEDS: aspirin 81 mg EC Tablet PO (16:40)
[2021-09-09 17:14] LABS: Troponin 5 6HR 17.42 ng/L (0-15)
[2021-09-09 17:21] LABS: Troponin 5 6HR Delta 3.42 ng/L (0-12)
[2021-09-09] MEDS: carvedilol 3.125 mg Tablet PO (17:26)
[2021-09-09 18:36] LABS: Thyroid Stimulating Hormone 1.43 uIU/mL (0.27-4.20)
--- NOTE | 2021-09-09 19:47 | PM.CONSULT ---
Providers/Reason For Consult Consulting Physician/Specialty*: RONALDO Tabares MD/cardiology Reason for Consult*: Patient with chest pain and abnormal EKG. Requesting Physician: Dr. Fox Attending Physician: Fernando Fox MD History of Present Illness History of Present Illness Beto Orourke is a 61 year old male with a history of smoking abuse, COPD, renal artery stenosis, activated hypertension, irritable bowel syndrome, is presenting with increasing episodes of chest pain over the last 3 weeks. He was found to have some nonspecific EKG changes and borderline elevation of the troponin T. Cardiology consult is requested for further cardiac evaluation recommendations. This patient apparently has been in his baseline state of health up until 22 August when he started having chest pains. was is better today. He started having pain on the morning as he was getting back from the bathroom. The pain was moderate intensity. It was mid substernal, radiated to the left arm. He felt tingling and numbness in the arm and also in the left leg. So he came back to the bed and lie down again. The pain later subsided over a period of 5 minutes or so. Since this day, he has been having episodes of chest pain almost every day especially in the morning. He was seen in the emergency room on 22 August. Initial work-up was negative. He was discharged home from the emergency room. He was supposed to see a asbestos brake lining finisher helper sometime in September for further evaluation management. This morning, he had a more or less similar episode of chest pain as he was getting back from the bathroom. This time the pain was radiating to both arms. The intensity of the pain also was more severe. This episode may have happened around 6 AM. He went back to bed and slept for another 2 hours. Around 8:00 in the morning, he woke up with pain in the chest. This time the pain was more severe. As he was trying to get up from bed, the pain was so severe that he could not get out of. In fact he fell back to bed. His noted him to be rolling his eyes backward and elbows unresponsive for few seconds. He came back to himself within 30 seconds or so. The whole episode of chest pain made a lasted for 5 minutes or so. He had another episode of chest pain on the way to the hospital in the ambulance. Since he came to the hospital, he has not had any more episodes of chest pain. He may have some funny feeling in the chest and also in the left arm but no real pain. Overall he feels okay at this point. During the daytime, he may have some discomfort in the chest and tingling and numbness of the left arm. But the pain does not get more severe. He has no other associated symptoms or radiation of pain. He has no previous history for coronary artery disease or myocardial infarction. In 2011, he had stenting of the right renal artery for accelerated hypertension and renal artery stenosis. This was done in one of the hospitals in [place]. Details are not known. According to the patient, prior to this, his systolic blood pressure may go up into the 200 range. He also used to get very angry and upset. Since the stent placement, his blood pressure has been under control. After a month or so, he was taken off the blood pressure medication because of low blood pressure reactions with the medicine?. He has been smoking medical marijuana for the last many years. He used to smoke cigarettes half to 2 pack a day for the last 50 years. He quit smoking 5 months ago. He has been taking nicotine gum. No alcohol abuse or any other substance abuse. He denies any fever, chills or cough. 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 He has been under a lot of stress because of this. His parents and grandparents all had heart problems and heart attack in their 50s, 60s and 80s. The details of this is not known. 2 of his siblings seem to be doing okay with no heart problems that he knows of. He is and has 1 son. No other relevant family history. Review of Systems Narrative: CONSTITUTIONAL: No fever or chills. EYES: No blurring of vision or other visual disturbances lately. ENT: No hoarseness of voice, auditory disturbances or sore throat. CARDIOVASCULAR: As mentioned above. RESPIRATORY: Patient is known to have COPD GASTROINTESTINAL: History of irritable bowel syndrome GENITOURINARY: No dysuria or hematuria. INTEGUMENTARY: No skin rashes or history of skin cancer. NEURO: No history for severe peripheral arterial disease. PSYCHIATRIC: History of anxiety disorder. HEMATOLOGIC: No bleeding disorders or significant anemia. ENDOCRINE: No history of polyuria or polydipsia. MUSCULOSKELETAL: No recent joint pain or swelling. ALLERGY/IMMUNOLOGY: He may have some nasal allergies Medications/Allergies Home Medications Medication Instructions Recorded Confirmed Last Taken Type acetaminophen 500 mg tablet 500 mg PO Q4H PRN 09/01/21 09/09/21 08/31/21 History albuterol sulfate 90 mcg/actuation 2 puff INHALATION QID PRN 09/01/21 09/09/21 Unknown History aerosol inhaler ibuprofen 200 mg tablet 400 mg PO Q4H PRN 09/01/21 09/09/21 08/31/21 History Allergies Allergy/AdvReac Type Severity Reaction Status Date / Time naproxen [From Aleve] Allergy UNKNOWN Verified 09/01/21 10:05 Current Medications Generic Name Dose Route Start Last Admin Trade Name Freq PRN Reason Stop Dose Admin Albuterol/Ipratropium 3 ml 09/09/21 16:00 09/09/21 15:58 Ipratropium-Albuterol 3 Ml Neb INHALATION 3 ml QID.RESPIRATORY SUSANA Administration Aspirin 81 mg 09/09/21 15:30 09/09/21 16:40 Aspirin 81 Mg Ec Tablet PO 81 mg DAILY SUSANA Administration Carvedilol 3.125 mg 09/09/21 18:00 09/09/21 17:26 Carvedilol 3.125 Mg Tablet PO 3.125 mg BID SUSANA Administration Pantoprazole Sodium 40 mg 09/09/21 15:30 09/09/21 16:39 Pantoprazole 40 Mg Sdv IVP 40 mg Q24H SUSANA Administration PFSH Acute PFSH: Medical History (Updated 09/09/21 @ 20:51 by Tiff Tabares MD) History of COPD History of stent insertion of renal artery No pertinent family history Renal artery stenosis Surgical History No pertinent past surgical history Family History Father CAD (coronary artery disease) Mother CAD (coronary artery disease) Social History Smoking and tobacco status: former smoker Alcohol intake: never Substance/Drug Use: never Vitals/I&O/Wt Last Vital Signs Pulse 78 09/09/21 16:04 Resp 18 05/07/22 16:00 BP 150/90 09/09/21 16:00 Pulse Ox 94 09/09/21 15:59 Weight last 48 hrs Weight 140 lb Physical Exam Narrative: GENERAL: The patient is alert and oriented times three. Not in any acute distress. HEENT: No significant pallor, icterus or lymphadenopathy. The pupils are reactant to light. Oral cavity: There are no mucous membrane lesions. Funduscopic examination: The fundus is not visualized NECK: Trachea appears to be central. No masses noted. No JVD or thyromegaly appreciated. No carotid bruit. RESPIRATORY: Chest is symmetrical. No intercostals muscle retraction or any accessory muscle activation. There is no chest wall tenderness. Breath sounds are heard bilaterally. No rales or rhonchi heard. No evidence of any consolidation. BREASTS: Deferred. HEART: The PMI could not be palpated. No palpable precordial events. S1 and S2 are normal. No S3 or S4 heard. No pericardial rub or any click heard. ABDOMEN: No vessel pulsations or distention. No tenderness. No organomegaly appreciated. No abdominal bruit. Bowel sounds are normally heard. : Deferred. RECTAL: Deferred. LYMPHATIC: No lymphadenopathy noted in the neck or groin. EXTREMITIES: No edema or cyanosis. No clubbing. The pulses are symmetrical bilaterally. The radial, femoral, dorsalis pedis and the posterior tibial pulses are palpated and found to be in good volume and amplitude. MUSCULOSKELETAL: No acute joint deformities or swelling. SKIN: There are no significant scars or skin rash noted. NEUROPSYCHIATRIC: The patient is alert and oriented x3. Appears to be in a good mood. The higher functions are grossly within normal limits. No tremors or rigidity noted. Data : 09/09/21 10:47 09/09/21 11:05 Other Labs: Laboratory Last Values WBC 16.7 10^3/uL (4.0-10.0) H 09/09/21 10:47 RBC 5.64 10^6/uL (4.1-5.3) H 09/09/21 10:47 Hgb 16.2 g/dL (11.7-16.6) 09/09/21 10:47 Hct 50.1 % (42.0-52.0) 09/09/21 10:47 MCV 88.8 fl (80-94) 09/09/21 10:47 MCH 28.7 pg (28.0-34.0) 09/09/21 10:47 MCHC 32.3 g/dL (30.0-36.0) 09/09/21 10:47 RDW 14.2 % (12.1-15.1) 09/09/21 10:47 Plt Count 278 10^3/cmm (130-400) 09/09/21 10:47 MPV 10.4 fL (7.4-10.4) 09/09/21 10:47 Neut % (Auto) 74.5 % 09/09/21 10:47 Lymph % (Auto) 14.9 % 09/09/21 10:47 [place] % (Auto) 5.6 % 09/09/21 10:47 Eos % (Auto) 4.1 % 09/09/21 10:47 Baso % (Auto) 0.5 % 09/09/21 10:47 Neut # (Auto) 12.44 10^3/uL (1.8-7.7) H 09/09/21 10:47 Lymph # (Auto) 2.5 10^3/uL (0.8-4.8) 09/09/21 10:47 [place] # (Auto) 0.9 10^3/uL (0.2-0.9) 09/09/21 10:47 Eos # (Auto) 0.7 10^3/uL (0.0-0.8) 09/09/21 10:47 Baso # (Auto) 0.1 10^3/uL (0.0-0.1) 09/09/21 10:47 Nucleated RBC % (auto) 0 % 09/09/21 10:47 Nucleated RBCs # 0.0 /100WBC 09/09/21 10:47 ESR 14 mm/hr (0-10) H 09/09/21 10:47 D-Dimer <= 0.27 ug/mIFEU (0-0.59) 09/09/21 15:29 Sodium 133 mmol/L (136-145) L 09/09/21 11:05 Potassium 4.5 mmol/L (3.5-5.1) 09/09/21 11:05 Chloride 99 mmol/L (98-107) 09/09/21 11:05 Carbon Dioxide 24 mmol/L (22-29) 09/09/21 11:05 Anion Gap 14.5 (5-19) 09/09/21 11:05 BUN 20 mg/dL (8-23) 09/09/21 11:05 Creatinine 0.8 mg/dL (0.7-1.2) 09/09/21 11:05 GFR Calculation 98.0 mL/min (90-130) 09/09/21 11:05 Glucose 104 mg/dL (65-115) 09/09/21 11:05 Calculated Osmolality 279 mOsm/kg (285-295) L 09/09/21 11:05 Calcium 9.3 mg/dL (8.5-10.5) 09/09/21 11:05 Total Bilirubin 0.2 mg/dL (0.15-1.2) 09/09/21 11:05 AST 21 U/L (0-40) 09/09/21 11:05 ALT 18 U/L (0-41) 09/09/21 11:05 Alkaline Phosphatase 66 IU/L (40-130) 09/09/21 11:05 Creatine Kinase 59 U/L (39-308) 09/09/21 11:05 Troponin T Baseline 14 ng/L (0-15) 09/09/21 11:05 Troponin T 120 Minute 23.49 ng/L (0-15) H 09/09/21 13:07 Delta Troponin T 9.49 ABS# (0-10) 09/09/21 13:07 Troponin T Hi Sens 6Hr 17.42 ng/L (0-15) H 09/09/21 16:47 Troponin T Hi Sens 6Hr Delta 3.42 ng/L (0-12) 09/09/21 16:47 C-Reactive Protein 3.0 mg/L (0.0-4.9) 09/09/21 11:05 NT-Pro-B Natriuret Pep 22 pg/mL (0-125) 09/09/21 11:05 Total Protein 6.2 g/dL (6.6-8.7) L 09/09/21 11:05 Albumin 4.4 g/dL (3.5-5.2) 09/09/21 11:05 Globulin 1.8 g/dL (1.3-4.6) 09/09/21 11:05 TSH 1.43 uIU/mL (0.27-4.20) 09/09/21 11:05 Urine Color Straw (Yellow) 09/09/21 11:05 Urine Appearance Clear (CLEAR) 09/09/21 11:05 Urine pH 7 (5-7) 09/09/21 11:05 Ur Specific [place] 1.015 (1.005-1.030) 09/09/21 11:05 Urine Protein Trace (Negative) 09/09/21 11:05 Urine Glucose (UA) Norm (Normal) 09/09/21 11:05 Urine Ketones Negative (Negative) 09/09/21 11:05 Urine Blood Neg (Negative) 09/09/21 11:05 Urine Nitrate Negative (Negative) 09/09/21 11:05 Urine Bilirubin Neg (Negative) 09/09/21 11:05 Urine Urobilinogen Norm mg/dL (Negative) 09/09/21 11:05 Ur Leukocyte Esterase Negative (Negative) 09/09/21 11:05 Urine RBC None /hpf (0-2) 09/09/21 11:05 Urine WBC None /hpf (0-5) 09/09/21 11:05 Ur Squamous Epith Cells None /hpf (0-5) 09/09/21 11:05 Amorphous Sediment 1+ /hpf 09/09/21 11:05 Urine Bacteria Trace /hpf (NONE) 09/09/21 11:05 EKG 1: My Interpretation: The EKG showed normal sinus rhythm with some nonspecific ST-T changes in the inferior leads. Normal ID and QRS duration. EKG computer-generated impression: Chest X-Ray 09/09/21 10:16 IMPRESSION: Normal cardiac silhouette. No lung infiltrate. No acute findings. A&P Assessment and plan (1) Atherosclerotic heart disease of [place] coronary artery with unstable angina pectoris: Patient's symptoms are suggestive of an unstable angina. The EKG changes are nonspecific. The troponin T is mildly elevated. He will be started on subcu Lovenox, beta-denilson, aspirin and a statin drug. I will be reviewing his echocardiogram. After reviewing the echocardiogram and also based on the patient's clinical progress, further recommendations will be made Status: Acute (2) Benign essential hypertension with target blood pressure below 140/90: Currently the blood pressure is a stage II. We will try to optimize his antihypertensive medications. Status: Acute (3) Dyslipidemia: Agree with starting the patient on a statin drug. Status: Acute (4) COPD exacerbation: Management as per the primary. Currently the symptoms seems stable Status: Acute Plan Elevated white cell count, possibly an acute phase reactant History of irritable bowel syndrome Anxiety /personality disorder Based on the patient's ability to progress and the results of the above, further recommendations will be made. 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
[2021-09-09] MEDS: atorvastatin 40 mg Tablet PO (20:32)
--- NOTE | 2021-09-09 20:56 | USCV_ITS ---
Beto Orourke Age: 61 Gender: M : 1960 Exam Date: 09/09/2021 21:35 Ordering Phys: Tiff Tabares MD ([email or web address]) Technologist: Johnnie Casas [place] [facility] [place]: renal artery stenosis / renal artery stent Aortic Velocity @ SMA (cm/s) 36.7 RIGHT KIDNEY LEFT KIDNEY Velocity (cm/s) Velocity (cm/s) Sys/Barker Sys/Barker Resistive Index Resistive Index 63.1 / 22.2 0.65 Proximal Renal Artery 47.8 / 16.6 0.65 70.7 / 27.0 0.62 Mid Renal Artery 56.8 / 21.1 0.63 26.3 / 7.6 0.71 Distal Renal Artery 63.1 / 6.9 0.89 38.1 / 11.1 0.71 Hilar 42.3 / 15.9 0.62 11.8 / 3.5 0.71 Upper Pole 30.5 / 9.7 0.68 38.8 / 7.6 0.80 Mid Pole 22.2 / 7.6 0.66 21.5 / 4.9 0.77 Lower Pole 26.3 / 11.8 0.55 1.90 Renal Aortic Ratio 1.72 117.9 Kidney Length (mm) FINDINGS Normal renal artery Doppler flow velocities Normal resistive indicis Normal right kidney dimension CONCLUSIONS 1. No significant renal artery stenosis, based on the above findings. 2. Normal right kidney dimension. 3. The left kidney could not be measured properly because of the bowel gas. Dr Tiff Tabares MD [facility] (Electronically Signed) Final Date: 10 Sep 2021 15:40 S
[2021-09-10] VITALS (27 sets, daily range): BP systolic 116–160; BP diastolic 63–90; PULSE 64–101; RESP 13–23; TEMP 36.4–36.7; O2SAT 92–98
[2021-09-10] MEDS: trazodone 50 mg Tablet PO (00:22)
[2021-09-10] MEDS: enoxaparin 60 mg/0.6 mL Syringe SUBCUT (01:03)
--- NOTE | 2021-09-10 02:25 | PC.NURSE ---
Patient states that he is nervous about his procedure and is asking for something to help him sleep. Dr. Ovalle notified and Trazodone x1 ordered.
--- NOTE | 2021-09-10 02:26 | PC.NURSE ---
Patient educated that he will be NPO at [address] Tabares. Patient verbalized understanding.
[2021-09-10 04:36] LABS: Basophils % 0.3 %; Eosinophils % 0.1 %; Hematocrit 47.9 % (42.0-52.0); Hemoglobin 15.2 g/dL (11.7-16.6); Lymphocytes # 1.7 10^3/uL (0.8-4.8); Lymphocytes % 11.6 %; Mean Corpuscular HGB Conc 31.7 g/dL (30.0-36.0); Mean Corpuscular Hemoglobin 28.7 pg (28.0-34.0); Mean Corpuscular Volume 90.5 fl (80-94); Mean Platelet Volume 10.5 fL (7.4-10.4); Monocytes # 0.3 10^3/uL (0.2-0.9); Monocytes % 2.1 %; Neutrophils # 12.75 10^3/uL (1.8-7.7); Neutrophils % 85.2 %; Nucleated Red Blood Cells % 0 %; Platelet Count 275 10^3/cmm (130-400); Red Blood Count 5.29 10^6/uL (4.1-5.3); Red Cell Distribution Width 13.5 % (12.1-15.1)
[2021-09-10 04:56] LABS: Alanine Aminotransferase 17 U/L (0-41); Albumin Level 4.7 g/dL (3.5-5.2); Alkaline Phosphatase 69 IU/L (40-130); Aspartate Amino Transferase 21 U/L (0-40); Blood Urea Nitrogen 16 mg/dL (8-23); Calcium 9.9 mg/dL (8.5-10.5); Carbon Dioxide 18 mmol/L (22-29); Chloride 100 mmol/L (98-107); Creatinine Clr Calc Pharmacy 85.9936; Globulin 2.2 g/dL (1.3-4.6); Glucose 182 mg/dL (65-115); Magnesium 2.1 mg/dL (1.7-2.3); Osmolality Calculated 284 mOsm/kg (285-295); Phosphorus 3.3 mg/dL (2.5-4.5); Sodium 134 mmol/L (136-145); Total Bilirubin 0.4 mg/dL (0.15-1.2); Total Protein 6.9 g/dL (6.6-8.7)
[2021-09-10 04:57] LABS: Anion Gap 20.7 (5-19); Potassium 4.7 mmol/L (3.5-5.1)
[2021-09-10] MEDS: ipratropium-albuterol 3 mL Neb INHALATION ×3 (07:22→19:32)
--- NOTE | 2021-09-10 08:12 | PC.NURSE ---
received bedside report from arsh. pt resting comfortably in bed, no needs identified at this time. reviewed poc, pt to go for cath today. assumed care of patient.
[2021-09-10] MEDS: carvedilol 3.125 mg Tablet PO ×2 (08:23→17:46)
[2021-09-10] MEDS: predniSONE 20 mg Tablet 40 MG PO (08:23)
[2021-09-10] MEDS: aspirin 81 mg EC Tablet PO (08:23)
--- NOTE | 2021-09-10 10:16 | P.PN_ITS ---
Subjective Subjective: The patient is feeling okay with no recurrence of chest pain. No unusual shortness of breath. No fever or chills. He was given steroid for COPD exacerbation. His breathing seems to be stable. The echocardiogram revealed hypokinesia of the inferobasal segment. The overall LV ejection fraction was around 50%. Medications: Medication Review Details: Current Medications Acetaminophen (Acetaminophen 325 Mg Tablet) 650 mg PO Q6H PRN PRN Reason: Mild/Mod Pain Or Temp >/= 101 Albuterol/Ipratropium (Ipratropium-Albuterol 3 Ml Neb) 3 ml INHALATION QID.RESPIRATORY SUSANA Last Admin: 09/10/21 07:22 Dose: 3 ml Documented by: Aspirin (Aspirin 81 Mg Ec Tablet) 81 mg PO DAILY [facility] Last Admin: 09/10/21 08:23 Dose: 81 mg Documented by: Atorvastatin Calcium (Atorvastatin 40 Mg Tablet) 40 mg PO BEDTIME [facility] Last Admin: 09/09/21 20:32 Dose: 40 mg Documented by: Carvedilol (Carvedilol 3.125 Mg Tablet) 3.125 mg PO BID SUSANA Last Admin: 09/10/21 08:23 Dose: 3.125 mg Documented by: Diphenhydramine HCl (Diphenhydramine 50 Mg Capsule) 50 mg PO ONCE ONE Stop: 09/10/21 13:01 Enoxaparin Sodium (Enoxaparin 60 Mg/0.6 Ml Syringe) 60 mg SUBCUT Q12H [facility] Sodium Chloride (Sodium Chloride 0.9%) 1,000 mls @ 50 mls/hr IV .Q20H ONE Stop: 09/10/21 16:56 Morphine Sulfate (Morphine 4 Mg/Ml Sdv 1 Ml) 2 mg IVP Q4H PRN PRN Reason: SEVERE PAIN Naloxone HCl (Naloxone 0.4 Mg/Ml Sdv) 0.1 mg IVP Q2M PRN PRN Reason: OPIATERV Nitroglycerin (Nitroglycerin 0.4 Mg Sublingual Tablet) 0.4 mg SUBLINGUAL Q5M PRN PRN Reason: CHEST PAIN Ondansetron HCl (Ondansetron 2 Mg/Ml Sdv 2 Ml) 4 mg IVP Q8H PRN PRN Reason: vomiting, or N/V if npo Pantoprazole Sodium (Pantoprazole 40 Mg Sdv) 40 mg IVP Q24H [facility] Last Admin: 09/09/21 16:39 Dose: 40 mg Documented by: Prednisone (Prednisone 20 Mg Tablet) 40 mg PO DAILY [facility] Last Admin: 09/10/21 08:23 Dose: 40 mg Documented by: Vitals/I&O/Wt Last Vital Signs Temp 97.7 F 09/10/21 07:49 Pulse 81 09/10/21 07:49 Resp 16 09/10/21 07:49 BP 141/76 09/10/21 07:49 Pulse Ox 92 09/10/21 07:49 09/09/21 09/10/21 09/10/21 22:59 06:59 14:59 Intake Total 300 / 300 Balance 300 / 300 Weight last 48 hrs Weight 140 lb Physical Exam Narrative: GENERAL: The patient is alert and oriented times three. Not in any acute distress. HEENT: No significant pallor, icterus or lymphadenopathy. The pupils are reactant to light. Oral cavity: There are no mucous membrane lesions. NECK: Trachea appears to be central. No masses noted. No JVD or thyromegaly appreciated. No carotid bruit. RESPIRATORY: Chest is symmetrical. No intercostals muscle retraction or any accessory muscle activation. There is no chest wall tenderness. Breath sounds are heard bilaterally. No rales or rhonchi heard. No evidence of any consolidation. BREASTS: Deferred. HEART: The PMI could not be palpated. No palpable precordial events. S1 and S2 are normal. No S3 or S4 heard. No pericardial rub or any click heard. ABDOMEN: No vessel pulsations or distention. No tenderness. No organomegaly appreciated. No abdominal bruit. Bowel sounds are normally heard. : Deferred. RECTAL: Deferred. LYMPHATIC: No lymphadenopathy noted in the neck or groin. EXTREMITIES: No edema or cyanosis. MUSCULOSKELETAL: No acute joint deformities or swelling. SKIN: There are no significant scars or skin rash noted. NEUROPSYCHIATRIC: The patient is alert and oriented x3. Appears to be in a good mood. The higher functions are grossly within normal limits. No tremors or rigidity noted. Data : 09/10/21 04:22 09/10/21 04:22 A&P Assessment and plan (1) Atherosclerotic heart disease of [place] coronary artery with unstable angina pectoris: Patient's symptoms are suggestive of an unstable angina. The EKG changes are nonspecific. The troponin T is mildly elevated. He will be started on subcu Lovenox, beta-denilson, aspirin and a statin drug. In view of the patient's presenting symptoms and the abnormal objective findings, in order to further evaluate his coronary status, a cardiac catheterization would be appropriate. This was discussed with the patient. The risk of bleeding, hematoma, vascular injury, myocardial infarction, CVA, renal failure and other concomitant complications were explained in detail. Patient understood this well and consented to proceed. We may go ahead and schedule this procedure in the afternoon. Based on the results, further recommendations will be made. He will be kept n.p.o. Status: Acute (2) Benign essential hypertension with target blood pressure below 140/90: The blood pressure seems to be getting under control. May continue on the cu rrent medications. Status: Acute (3) Dyslipidemia: Agree with starting the patient on a statin drug. Status: Acute (4) COPD exacerbation: Management as per the primary. Currently the symptoms seems stable. Patient was given steroids. The elevated white cell count, most likely related to the steroid. He has no signs of infection at this point Status: Acute Plan History of irritable bowel syndrome, stable Anxiety /personality disorder We may go ahead and schedule the cardiac catheterization this afternoon. Based on the results, further management decisions will be made. Attestations Medical Necessity Statement*: Patient requires continued hospital stay for close monitoring and further management Coding Level of Care Code Acute Surg Nurse for Cory Almendarez Diagnoses Atherosclerotic heart disease of [place] coronary artery with unstable angina pectoris I25.110 Benign essential hypertension with target blood pressure below 140/90 I10 Dyslipidemia E78.5 COPD exacerbation J44.1
--- NOTE | 2021-09-10 10:21 | W.PM.OPSUD ---
Surgery/Procedure H&P Update DATE OF PROCEDURE: September 10, 2021 DATE H&P PERFORMED: 09/09/21 H&P UPDATE INFORMATION: I have reviewed H&P completed within last 30 days, I have examined patient prior to procedure and No changes to prior documentation PREOP DIAGNOSIS: Unstable angina/ASHD PRIMARY INDICATION FOR PROCEDURE: Unstable angina, abnormal EKG and echocardiogram PLANNED PROCEDURE: Left heart catheterization with left and right coronary angiogram, LV angiogram and possible PCI PATIENT REASSESSED PRIOR TO SEDATION, WITH NO CHANGE NOTED: Yes PHYSICAL EXAM: alert, oriented x 3, clear to auscultation bilaterally and regular rate & rhythm AIRWAY EVAL/ANESTHESIA PLAN: normal airway, see other exam findings, ASA III, Local Anesthesia, Risks, benefits & alternatives of sedation and/or procedure discussed and Patient agrees to continue as planned
--- NOTE | 2021-09-10 12:49 | PM.PN ---
Subjective Subjective: Patient was seen this morning, no active chest pain overnight, no fevers, no chills, no nausea Vitals/I&O/Wt Last Vital Signs Temp 97.5 F L 09/10/21 11:48 Pulse 89 09/10/21 11:51 Resp 16 09/10/21 11:51 BP 128/75 09/10/21 11:48 Pulse Ox 98 09/10/21 11:51 09/09/21 09/10/21 09/10/21 22:59 06:59 14:59 Intake Total 300 / 300 Balance 300 / 300 Weight last 48 hrs Weight 63.503 kg Physical Exam Const: COMMON NORMALS: no acute distress and patient oriented x3 Resp: COMMON NORMALS: normal respiratory effort, No retractions, No use of accessory muscles and clear to auscultation bilaterally AUSCULTATION: clear to auscultation bilaterally Cardio: COMMON NORMALS: regular rate, regular rhythm, S1 normal heart sound present and S2 normal heart sound present RATE: regular rate RHYTHM: regular rhythm HEART SOUNDS: S1 normal heart sound present and S2 normal heart sound present GI: COMMON NORMALS: Normal to inspection, nondistended, normoactive bowel sounds present, Soft to palpation and non-tender PALPATION: Yes Soft to palpation Extremity: COMMON NORMALS: no pedal edema Neuro: COMMON NORMALS: patient oriented x3 Psych: COMMON NORMALS: mental status grossly normal Data : 09/10/21 04:22 09/10/21 04:22 A&P Assessment and plan (1) Chest pain: Status: Acute (2) COPD exacerbation: Status: Acute Plan Chest pain -Serial EKG showing ST depressions, cardiac history concerning for cardiac etiology, 6-hour troponin 17.42 -Telemetry monitoring -Cardiac echo Normal LV size with borderline low ejection fraction of 50%.? ?Moderate hypokinesis of the inferobasal segment. ?Thickened mitral valve. ?There is no pericardial effusion. ?There are no intracardiac masses. ?No similar previous studies are available for comparison -Aspirin, statin, nitro as needed, Coreg -Therapeutic Lovenox -Full code -Lovenox for DVT prophylaxis -Monitor for chest pain COPD exacerbation, prednisone burst, DuoNeb Attestations Medical Necessity Statement*: Patient requires hospitalization for chest pain Coding Level of Care Code Acute Regulator Operator for [facility] Fwd Diagnoses Chest pain R07.9 COPD exacerbation J44.1
[2021-09-10] MEDS: diphenhydrAMINE 50 mg Capsule PO (12:52)
[2021-09-10] MEDS: sodium chloride 0.9% 1,000 ML 50 ML IV (12:52)
--- NOTE | 2021-09-10 13:36 | XACV_ITS ---
Exam Room: [facility] Ht: 180 cm Wt: 64 kg BSA: 1.79 m2 Gender: Male : 1960 Exam Priority: Routine Procedure(s): Procedure Description: Diagnostic procedure Procedure Description: PCI procedure Procedure Description: Left Heart Catheterization Procedure Description: Left ventriculography Procedure Description: Drug Eluting Coronary Stent Procedure Description: Coronary Angiography Rayshawn KERN; Diagnostic Cath Status: Urgent Diagnostic Findings * The left main is a medium caliber vessel with no significant stenotic lesions. * . * The left circumflex artery is a small to medium caliber nondominant vessel with no significant stenotic lesions. * The right coronary artery is a medium to large caliber dominant vessel which was found to have a tight segmental narrowing of 95% proximally. The distal artery was found to have minimal intimal irregularities. No other significant stenotic lesions.. PCI Status: Urgent PCI LVEF Assessed: Yes PCI Indication: NSTE - ACS Interventional Findings * A right coronary artery guide was used. A wire was placed and the lesion primarily stented with a 4 mm x 18 mm stent. This created a lesion distal to the stent which was also stented using an 8 mm x 4 mm stent. The end result was excellent. No complications. Decision for PCI with Surgical Consult: No PCI for Multi-vessel Disease: No Conclusions 1. The left main is a medium caliber vessel with no significant stenotic lesions. 2. The left anterior descending artery is a medium caliber elongated vessel which appears to wrap around the LV apex. It gives off multiple diagonal and septal perforators. One of the side branches of the diagonal vessel was found to have around 50% narrowing. No other significant stenotic lesions.. 3. Left circumflex artery is a small to medium caliber nondominant vessel with no significant stenotic lesions. 4. The right coronary artery is a medium to large caliber dominant vessel which was found to have a tapering high-grade stenosis of 95% proximally. The distal artery was found to have minimal intimal irregularities. No significant stenotic lesions were noted. 5. 61-year-old white male with a history of heavy smoking abuse, COPD, renal artery stenosis, accelerated hypertension, presented with complaints of increasing episodes of chest pain for the last 3 weeks. EKGs was nonspecific. Echocardiogram revealed hypokinetic inferobasal segment. The troponin T was minimally elevated. In view of the patient's presenting symptoms and the abnormal objective findings, in order to further evaluate his coronary status, a cardiac catheterization was recommended. Patient underwent left heart catheterization with left and right coronary angiogram and LV angiogram today. The findings are as follows. 6. High-grade lesion in the proximal right coronary artery of 95%. Mild disease in the left anterior descending artery and right coronary artery. Normal LV ejection fraction. Near normal EDP. For further management of his condition, PCI of the RCA lesion was told to be appropriate. I reviewed and discussed the cardiac catheterization data with the Dr. Meza. Dr. Meza took over further management this patient at this point.. Interventional RX Recommendation: PCI w/o planned CABG Diagnostic RX Recommendation: PCI w/o planned CABG Ventriculography Ejection Fraction: 55.0 % LV EDP: 13 mmHg Left Ventriculography Findings: * The LV gram was performed in the LEBRON position. The LV cavity appears to be within normal limits. LV ejection fraction was around 55%. No significant mitral valve prolapse or mitral regurgitation. Pressures Phase:Rest AO : 83 / 52 ( 68 ) @ 3:27:00 PM 84 / 51 ( 66 ) @ 3:31:00 PM 121 / 18 ( 52 ) @ 3:41:00 PM 115 / 63 ( 84 ) @ 3:41:00 PM 112 / 68 ( 86 ) @ 3:56:00 PM 118 / 77 ( 97 ) @ 4:03:00 PM LV : 113 / -10 / 13 @ 3:40:00 PM 112 / - @ 3:40:00 PM Clinical Evaluation EBL: 5mL-10mL Procedural Details Procedure Consent Obtained. Admit Source: In Patient. Pre-Procedure Time Out. Identified patient by full name and date of as verbalized by the patient/guarantor. Does the consent match the physician's order: Yes. Accurate & Complete Informed Consent: Yes. Inpatient/Outpatient History & Physical on Chart: Yes. If H&P is completed, is and addenduem needed: N/A; If yes, is the addendum complete: N/A. Visualize and Verify Site with Patient/Guarantor: N/A. Relevant Radiology Images available: N/A. Pre-op teaching completed and patient verbalized understanding. The risks, benefits, and alternatives of sedation and/or procedure were discussed by physician. The patient agrees to continue. Procedure started. [facility] Clinical Fraility Score: 3: Managing Well. Vacuum Caster Indications: New Onset Angina. Chest Pain Symptom Assessment: Atypical Angina. Correct patient, site and procedure confirmed by cath team. Current diagnosis: Unstable angina. PERRLA. Strong, equal hand rubber compounder bilaterally. Lungs clear x 5 lobes. IV Site on Arrival: 18 gauge in the right anticubital. IV Fluids: 0.9% NaCl at KVO. 50 mL infused prior to laborer high density press. Pre Procedural Pulses: bilateral posterior tibial was 2+. Pre Procedural Pulses: bilateral dorsalis pedis was 2+. Pre Procedural Pulses: right radial was 2+. Oxygen started at 2liters/min via nasal canula. right groin was prepped with chloroprep then draped in the usual sterile fashion. right radial was prepped with chloroprep then draped in the usual sterile fashion. Physician notified. Baseline sample Acquired. HR: 72 BPM. Physician arrived. Physician scrubbed in. Immediate Pre-Procedure Time Out. Correct Patient: Yes; Correct Procedure: Yes; Correct Site: Yes; Correct Patient Position: Yes; Correct Supplies: Yes; Dried Flammable Prep: Yes; Blood Products Available: N/A;. Lidocaine 1% infiltrated to the right radial. Arterial access obtained. A 5 turkish Oliverio catheter in over wire. Catheter out. A 5 turkish TIG catheter in over wire. Multiple views taken of left coronary artery. Catheter redirected to the RCA. Multiple views taken of right coronary artery. Dr Meza notified to review films. A 5 turkish Angled Pig catheter in over wire. Catheter out. EDP Sample taken: LV 113/-11,13; HR: 76 BPM; SpO2: 96%. LV gram performed in LEBRON @ 10 mL/second for a total of 30 mL. EDP Sample taken: LV 112/-6,16; HR: 75 BPM; SpO2: 96%. Pullback taken: LV Off; AO Off; Mean: , Peak to Peak: , SEP: ; HR: 76 BPM; SpO2: 96%. Catheter out. Physician scrubbed out. Physician review of cine films. Dr. Meza scrubbed in to perform intervention. Patient's family updated. 6 turkish JR 4 guide catheter was inserted over the wire. [place] guidewire was advanced through the guide catheter to lesion in the mid RCA. Stent inserted to lesion in the mid RCA. Inflation Number : 1 A MDT R RICHA 4.0X18 KELLI -Lot Number# [id number] Exp 09/03/2023 was prepped and advanced across the Mid RCA. The stent was deployed at 12 ZEINAB for 0:20 seconds. Results checked. Stent balloon out over wire. Stent inserted to lesion in the mid RCA. Inflation Number : 2 A MDT R RICHA 4.0X08 KELLI -Lot Number# [id number] Exp 10/02/2021 was prepped and advanced across the Mid RCA. The stent was deployed at 12 ZEINAB for 0:22 seconds. Results checked. Stent balloon out over wire. Catheter and wire removed. A TR Band was successful obtaining hemostatsis at the Right Radial artery insertion site. Post Procedure: Pulses reassessed and unchanged. PERRLA. Strong, equal hand rubber compounder bilaterally. No VTE prophylaxis required. Medication's Wasted: Heparin = 1000 u. Medication's Wasted: Nitro = 50 mg. Total IV fluids: 300 mL. PCI Indication: New Onset Angina. Post-op diagnosis: Obstructive CAD. Complications: none. Estimated blood loss: 5mL-10mL. Responsiveness - Normal response to verbal stimuli; alert and oriented, PERRLA. Airway - Unaffected, no intervention required; spontaneous ventilation. Circulation: W/N/L, pulses unchanged. Nausea/Vomiting: No. Procedure completed. Patient transferred by wheelchair to 1st floor. Vital chart was stopped. Access Site Site: Right Radial artery Sheath Size: 6 Fr Hemostasis Method: TR Band Hemostasis Success: Successful Procedure Medications Start: 2:01 PM Stop: 2:01 PM Medication: 0.9% Saline Amount: 75 ml/hr Route: I.V. drip Start: 2:05 PM Stop: 2:05 PM Medication: Versed Amount: 1 mg Route: I.V. Start: 2:05 PM Stop: 2:05 PM Medication: Fentanyl Amount: 50 mcg Route: I.V. Start: 2:10 PM Stop: 2:10 PM Medication: Versed Amount: 1 mg Route: I.V. Start: 2:10 PM Stop: 2:10 PM Medication: Fentanyl Amount: 50 mcg Route: I.V. Start: 2:17 PM Stop: 2:17 PM Medication: 0.9% Saline Amount: 250 ml Route: I.V. bolus Start: 2:21 PM Stop: 2:21 PM Medication: Verapamil Amount: 5 mg Route: I.A. Start: 2:22 PM Stop: 2:22 PM Medication: Versed Amount: 1 mg Route: I.V. Start: 2:22 PM Stop: 2:22 PM Medication: Fentanyl Amount: 50 mcg Route: I.V. Start: 2:24 PM Stop: 2:24 PM Medication: Heparin Amount: 5000 units Route: I.V. Start: 2:42 PM Stop: 2:42 PM Medication: Plavix Amount: 600 mg Route: P.O. Start: 2:43 PM Stop: 2:43 PM Medication: Versed Amount: 1 mg Route: I.V. Start: 2:43 PM Stop: 2:43 PM Medication: Fentanyl Amount: 50 mcg Route: I.V. I, the attending physician, have reviewed and verified all procedure medications. Yes, all medications given per verbal order History/Risk Factors Hypertension: Yes Dyslipidemia: No Peripheral Arterial Disease (PAD): No Myocardial Infarction (IL): No Obesity: No Renal Disease: No Tobacco Use: Former Prior Interventions PCI: No CABG: No Valve Surgery: No Report Signatures Diagnostic Workflow Finalized by Dr Tiff Tabares MD [facility] on 09/10/2021 04:00 PM Interventional Workflow Finalized by Dr. Omar Meza MD on 09/10/2021 03:22 PM
--- NOTE | 2021-09-10 16:26 | PC.NURSE ---
brought in [employer].
--- NOTE | 2021-09-10 17:13 | PC.NURSE ---
patient had already had an early dinner brought in by the , see previous note.
[2021-09-10] MEDS: atorvastatin 40 mg Tablet PO (20:02)
[2021-09-11] VITALS (9 sets, daily range): BP systolic 117–150; BP diastolic 68–93; PULSE 61–85; RESP 16–18; TEMP 36.4–36.6; O2SAT 94–96
[2021-09-11 05:44] LABS: Basophils # 0.1 10^3/uL (0.0-0.1); Basophils % 0.3 %; Eosinophils # 0.1 10^3/uL (0.0-0.8); Eosinophils % 0.7 %; Hematocrit 44.1 % (42.0-52.0); Hemoglobin 14.2 g/dL (11.7-16.6); Lymphocytes # 3.1 10^3/uL (0.8-4.8); Mean Corpuscular HGB Conc 32.2 g/dL (30.0-36.0); Mean Corpuscular Hemoglobin 28.5 pg (28.0-34.0); Mean Corpuscular Volume 88.6 fl (80-94); Mean Platelet Volume 11.2 fL (7.4-10.4); Monocytes # 1.3 10^3/uL (0.2-0.9); Monocytes % 6.7 %; Neutrophils # 14.75 10^3/uL (1.8-7.7); Neutrophils % 75.7 %; Nucleated Red Blood Cells % 0 %; Platelet Count 269 10^3/cmm (130-400); Red Blood Count 4.98 10^6/uL (4.1-5.3); Red Cell Distribution Width 13.8 % (12.1-15.1); White Blood Count 19.5 10^3/uL (4.0-10.0)
[2021-09-11 06:00] LABS: Alanine Aminotransferase 15 U/L (0-41); Albumin Level 4.6 g/dL (3.5-5.2); Alkaline Phosphatase 63 IU/L (40-130); Anion Gap 17.5 (5-19); Aspartate Amino Transferase 16 U/L (0-40); Blood Urea Nitrogen 15 mg/dL (8-23); Calcium 9.7 mg/dL (8.5-10.5); Carbon Dioxide 23 mmol/L (22-29); Chloride 102 mmol/L (98-107); Creatinine Clr Calc Pharmacy 85.9936; Globulin 1.6 g/dL (1.3-4.6); Glucose 98 mg/dL (65-115); Magnesium 2.1 mg/dL (1.7-2.3); Osmolality Calculated 287 mOsm/kg (285-295); Phosphorus 2.9 mg/dL (2.5-4.5); Potassium 4.5 mmol/L (3.5-5.1); Sodium 138 mmol/L (136-145); Total Bilirubin 0.4 mg/dL (0.15-1.2); Total Protein 6.2 g/dL (6.6-8.7)
--- NOTE | 2021-09-11 08:36 | PC.NURSE ---
patient states he had a bowel movement last night.
[2021-09-11] MEDS: clopidogrel 75 mg Tablet PO (09:16)
[2021-09-11] MEDS: aspirin 81 mg EC Tablet PO (09:16)
[2021-09-11] MEDS: predniSONE 20 mg Tablet 40 MG PO (09:16)
[2021-09-11] MEDS: carvedilol 3.125 mg Tablet PO (09:16)
[2021-09-11] MEDS: ipratropium-albuterol 3 mL Neb INHALATION ×2 (09:20→12:40)
--- NOTE | 2021-09-11 12:55 | PM.DCS ---
Discharge Providers Date of Admission: 09/09/21 13:56 Date of Discharge: September 11, 2021 Attending Provider at Admission: Fernando Fox MD Attending Provider at Discharge: Huseyin Raphael Diagnoses at Discharge Discharge Diagnosis (1) Chest pain: Status: Acute (2) COPD exacerbation: Status: Acute Reason for Visit Reason for Visit: was nonresponsive; chest pain Hospital Course Hospital Course 61-year-old gentleman with former smoking history, COPD, family history of CAD, was admitted for assessment of management after presenting with chest pain, with ST depressions noted on EKG, mild elevation of troponin, however, also with regional wall motion abnormalities with moderate hypokinesis of the inferobasal segment. EF 50%. Thickened mitral valve. He was assessed by cardiology, underwent coronary angiography, with finding of coronary disease including 90% stenosis of proximal RCA which was treated with PCI with stenting. He is doing well following coronary angiography. Most of his symptoms have resolved. He did have elevation of blood pressure this morning, although feels that may have been due to having poor sleep overnight causing him aggravation. Blood pressure has improved this morning. He is started on carvedilol in addition to aspirin, Plavix, statin on discharge. He is asked to monitor his blood pressures. Please follow-up following PCI, continue to optimize risk factors of cardiovascular disease. Was treated with short course of prednisone, breathing treatments for COPD exacerbation. Noted leukocytosis during hospitalization, please follow-up for resolution. At no signs of pneumonia, complains of no other symptoms to suggest infection. Physical Exam Const: COMMON NORMALS: alert GENERAL APPEARANCE: cooperative ORIENTATION/CONSCIOUSNESS: Yes awake HENMT: COMMON NORMALS: normocephalic, EAC's normal, Normal external nose present and moist oral mucous membranes HEAD & SCALP: normocephalic NOSE: Normal external nose present EXTERNAL AUDITORY CANAL: EAC's normal Neck/C-Spine: COMMON NORMALS: no meningeal signs Chest: CHEST: Yes Symmetrical chest wall rise Resp: COMMON NORMALS: clear to auscultation bilaterally AUSCULTATION: clear to auscultation bilaterally Cardio: COMMON NORMALS: regular rate, regular rhythm and No murmurs present (Cardio) RATE: regular rate RHYTHM: regular rhythm GI: COMMON NORMALS: Normal to inspection, nondistended, normoactive bowel sounds present, Soft to palpation and non-tender PALPATION: Yes Soft to palpation Extremity: COMMON NORMALS: no pedal edema OTHER: R wrist without bleeding, bruising, swelling Neuro: COMMON NORMALS: moves all extremities SENSORIUM/ORIENTATION: Yes alert MENINGEAL SIGNS: Yes no meningeal signs Psych: COMMON NORMALS: mental status grossly normal Skin: COMMON NORMALS: no wounds RASHES: no rashes Discharge Data Studies Completed and Pending Completed Studies During Hospitalization Category Date Time Status 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 echo complete* [id number]] Routine Ultrasound 09/09/21 15:30 Completed Pending at discharge Category Date Time Status Complete Blood Count w/Auto AM LABS Lab 09/12/21 04:00 Ordered Comprehensive Metabolic Panel AM LABS Lab 09/12/21 04:00 Ordered Magnesium AM LABS Lab 09/12/21 04:00 Ordered Phosphorus AM LABS Lab 09/12/21 04:00 Ordered Radiology Impressions Chest X-Ray 09/09/21 10:16 IMPRESSION: No acute findings. Laboratory Results WBC 19.5 10^3/uL (4.0-10.0) H 09/11/21 04:26 RBC 4.98 10^6/uL (4.1-5.3) 09/11/21 04:26 Hgb 14.2 g/dL (11.7-16.6) 09/11/21 04:26 Hct 44.1 % (42.0-52.0) 09/11/21 04:26 MCV 88.6 fl (80-94) 09/11/21 04:26 MCH 28.5 pg (28.0-34.0) 09/11/21 04:26 MCHC 32.2 g/dL (30.0-36.0) 09/11/21 04:26 RDW 13.8 % (12.1-15.1) 09/11/21 04:26 Plt Count 269 10^3/cmm (130-400) 09/11/21 04:26 MPV 11.2 fL (7.4-10.4) H 09/11/21 04:26 Neut % (Auto) 75.7 % 09/11/21 04:26 Lymph % (Auto) 16.0 % 09/11/21 04:26 Treasure % (Auto) 6.7 % 09/11/21 04:26 Eos % (Auto) 0.7 % 09/11/21 04:26 Baso % (Auto) 0.3 % 09/11/21 04:26 Neut # (Auto) 14.75 10^3/uL (1.8-7.7) H 09/11/21 04:26 Lymph # (Auto) 3.1 10^3/uL (0.8-4.8) 09/11/21 04:26 Treasure # (Auto) 1.3 10^3/uL (0.2-0.9) H 09/11/21 04:26 Eos # (Auto) 0.1 10^3/uL (0.0-0.8) 09/11/21 04:26 Baso # (Auto) 0.1 10^3/uL (0.0-0.1) 09/11/21 04:26 Nucleated RBC % (auto) 0 % 09/11/21 04:26 Nucleated RBCs # 0.0 /100WBC 09/11/21 04:26 ESR 14 mm/hr (0-10) H 09/09/21 10:47 D-Dimer <= 0.27 ug/mIFEU (0-0.59) 09/09/21 15:29 Sodium 138 mmol/L (136-145) 09/11/21 04:26 Potassium 4.5 mmol/L (3.5-5.1) 09/11/21 04:26 Chloride 102 mmol/L (98-107) 09/11/21 04:26 Carbon Dioxide 23 mmol/L (22-29) 09/11/21 04:26 Anion Gap 17.5 (5-19) 09/11/21 04:26 BUN 15 mg/dL (8-23) 09/11/21 04:26 Creatinine 0.8 mg/dL (0.7-1.2) 09/11/21 04:26 GFR Calculation 98.0 mL/min (90-130) 09/11/21 04:26 Glucose 98 mg/dL (65-115) 09/11/21 04:26 Calculated Osmolality 287 mOsm/kg (285-295) 09/11/21 04:26 Calcium 9.7 mg/dL (8.5-10.5) 09/11/21 04:26 Phosphorus 2.9 mg/dL (2.5-4.5) 09/11/21 04:26 Magnesium 2.1 mg/dL (1.7-2.3) 09/11/21 04:26 Total Bilirubin 0.4 mg/dL (0.15-1.2) 09/11/21 04:26 AST 16 U/L (0-40) 09/11/21 04:26 ALT 15 U/L (0-41) 09/11/21 04:26 Alkaline Phosphatase 63 IU/L (40-130) 09/11/21 04:26 Creatine Kinase 59 U/L (39-308) 09/09/21 11:05 Troponin T Baseline 14 ng/L (0-15) 09/09/21 11:05 Troponin T 120 Minute 23.49 ng/L (0-15) H 09/09/21 13:07 Delta Troponin T 9.49 ABS# (0-10) 09/09/21 13:07 Troponin T Hi Sens 6Hr 17.42 ng/L (0-15) H 09/09/21 16:47 Troponin T Hi Sens 6Hr Delta 3.42 ng/L (0-12) 09/09/21 16:47 C-Reactive Protein 3.0 mg/L (0.0-4.9) 09/09/21 11:05 NT-Pro-B Natriuret Pep 22 pg/mL (0-125) 09/09/21 11:05 Total Protein 6.2 g/dL (6.6-8.7) L 09/11/21 04:26 Albumin 4.6 g/dL (3.5-5.2) 09/11/21 04:26 Globulin 1.6 g/dL (1.3-4.6) 09/11/21 04:26 TSH 1.43 uIU/mL (0.27-4.20) 09/09/21 11:05 Urine Color Straw (Yellow) 09/09/21 11:05 Urine Appearance Clear (CLEAR) 09/09/21 11:05 Urine pH 7 (5-7) 09/09/21 11:05 Ur Specific [place] 1.015 (1.005-1.030) 09/09/21 11:05 Urine Protein Trace (Negative) 09/09/21 11:05 Urine Glucose (UA) Norm (Normal) 09/09/21 11:05 Urine Ketones Negative (Negative) 09/09/21 11:05 Urine Blood Neg (Negative) 09/09/21 11:05 Urine Nitrate Negative (Negative) 09/09/21 11:05 Urine Bilirubin Neg (Negative) 09/09/21 11:05 Urine Urobilinogen Norm mg/dL (Negative) 09/09/21 11:05 Ur Leukocyte Esterase Negative (Negative) 09/09/21 11:05 Urine RBC None /hpf (0-2) 09/09/21 11:05 Urine WBC None /hpf (0-5) 09/09/21 11:05 Ur Squamous Epith Cells None /hpf (0-5) 09/09/21 11:05 Amorphous Sediment 1+ /hpf 09/09/21 11:05 Urine Bacteria Trace /hpf (NONE) 09/09/21 11:05 Vitals Last Vital Signs Temp 97.5 F L 09/11/21 11:35 Pulse 72 09/11/21 12:45 Resp 17 09/11/21 12:40 BP 150/93 09/11/21 11:35 Pulse Ox 94 09/11/21 12:40 Discharge Plan Discharge Patient Disposition: Home Condition: Stable Prescriptions: New aspirin 81 mg Tablet,Delayed Release (Dr/Ec) 81 mg PO DAILY Qty: 90 0RF atorvastatin 40 mg Tablet 40 mg PO BEDTIME Qty: 90 0RF carvedilol 3.125 mg Tablet 3.125 mg PO BID Qty: 90 0RF prednisone 20 mg Tablet 20 mg PO DAILY Qty: 3 0RF nitroglycerin 0.4 mg Tablet, Sublingual 0.4 mg sublingual Q5M PRN (Reason: Chest Pain) Qty: 25 0RF clopidogrel 75 mg Tablet 75 mg PO DAILY Qty: 90 0RF Continued acetaminophen [Tylenol Ex Str Rapid Release] 500 mg Tablet 500 mg PO Q4H PRN (Reason: Pain) 0RF albuterol sulfate 90 mcg/actuation Hfa Aerosol Inhaler 2 puff INHALATION QID PRN (Reason: Shortness Of Breath) 0RF Discontinued ibuprofen 200 mg Tablet 400 mg PO Q4H PRN (Reason: Pain) 0RF Discharge Orders: Discharge Order (Routine); Ordered 09/11/21 Ordered By: Huseyin Raphael Referrals: Tiff Tabares MD [Physician] - 1 month (Please follow-up with Dr. Tabares on October 25 at 3:30P.M. If you have any questions or need to reschedule. Please call ) Teodora Zhong FNP [Nurse Practitioner] - 2 weeks (Please follow-up with Teodora Zhong on September 20 at 10:15A.M. If you any questions or need to reschedule. Please call ) Primary, provider [Other] - 4-7 days Discharge Diet: Cardiac Discharge Activity: Limit activity as instructed Patient Instructions: Nitroglycerin (By mouth), Prednisone (By mouth), Aspirin (By mouth), Atorvastatin (By mouth), Clopidogrel (By mouth), Coronary Artery Disease (GEN), Coronary Angioplasty (DC), COPD (Chronic Obstructive Pulmonary Disease) (GEN), Chronic Hypertension (GEN), Heart Catheterization (DC), Post Angiogram Home Care Instructions Activity Restrictions/Additional Instructions: Avoid lifting more than 2 pounds for 3 days. If you notice any bleeding, pulsatile mass, or other concerning symptoms in your right wrist right hand, seek medical attention immediately. Please fill and start your medications from today especially Plavix, aspirin, do not stop these medications without consulting with your doctor. Please follow-up with cardiology and your primary doctor with regards to coronary disease, continue to optimize risk factors of coronary disease. Please monitor blood pressures at home at least 3 times daily, write down values to bring to your appointment. Ibuprofen and other NSAIDs may contribute to risk of cardiovascular disease, discontinue this medication if you can. Follow-up with your primary doctor also regarding COPD exacerbation. Discharge Attestations Time Spent in Discharge Care*: greater than 30 min Quality Metrics Clinical Quality Measures [ Acute Myocardial Infaction { Clinical Trial Participant: No; Contraindication to aspirin: None; Aspirin prescribed; Contraindication to statin: None; Statin prescribed; Contraindication to PCI: None; PCI performed;}] Coding Level of Care Code Acute Chg FW DC note Diagnoses Chest pain R07.9 COPD exacerbation J44.1
--- NOTE | 2021-09-11 13:10 | P.PN_ITS ---
Subjective Subjective: The patient is feeling okay. No chest pain or chest tightness. No shortness of breath. Vital stable. Remaining afebrile. Medications: Medication Review Details: Current Medications Acetaminophen (Acetaminophen 325 Mg Tablet) 650 mg PO Q6H PRN PRN Reason: Mild/Mod Pain Or Temp >/= 101 Albuterol/Ipratropium (Ipratropium-Albuterol 3 Ml Neb) 3 ml INHALATION QID.RESPIRATORY [facility] Last Admin: 09/11/21 12:40 Dose: 3 ml Documented by: Aspirin (Aspirin 81 Mg Ec Tablet) 81 mg PO DAILY [facility] Last Admin: 09/11/21 09:16 Dose: 81 mg Documented by: Atorvastatin Calcium (Atorvastatin 40 Mg Tablet) 40 mg PO BEDTIME [facility] Last Admin: 09/10/21 20:02 Dose: 40 mg Documented by: Carvedilol (Carvedilol 3.125 Mg Tablet) 3.125 mg PO BID [facility] Last Admin: 09/11/21 09:16 Dose: 3.125 mg Documented by: Clopidogrel Bisulfate (Clopidogrel 75 Mg Tablet) 75 mg PO DAILY [facility] Last Admin: 09/11/21 09:16 Dose: 75 mg Documented by: Sodium Chloride (Sodium Chloride 0.9%) 1,000 mls @ 100 mls/hr IV .Q10H [facility] Last Admin: 09/11/21 01:00 Dose: Not Given Documented by: Nitroglycerin (Nitroglycerin 0.4 Mg Sublingual Tablet) 0.4 mg SUBLINGUAL Q5M PRN PRN Reason: CHEST PAIN Ondansetron HCl (Ondansetron 2 Mg/Ml Sdv 2 Ml) 4 mg IVP Q8H PRN PRN Reason: vomiting, or N/V if npo Pantoprazole Sodium (Pantoprazole 40 Mg Sdv) 40 mg IVP Q24H [facility] Last Admin: 09/09/21 16:39 Dose: 40 mg Documented by: Prednisone (Prednisone 20 Mg Tablet) 40 mg PO DAILY [facility] Last Admin: 09/11/21 09:16 Dose: 40 mg Documented by: Vitals/I&O/Wt Last Vital Signs Temp 97.5 F L 09/11/21 11:35 Pulse 72 09/11/21 12:45 Resp 17 09/11/21 12:40 BP 150/93 09/11/21 11:35 Pulse Ox 94 09/11/21 12:40 09/10/21 09/11/21 09/11/21 22:59 06:59 14:59 Intake Total 500 / 500 1120 / 1120 Output Total 0 / 0 Balance 0 / 0 500 / 500 1120 / 1120 Physical Exam Narrative: GENERAL: The patient is alert and oriented times three. Not in any acute distress. HEENT: No significant pallor, icterus or lymphadenopathy. NECK: Trachea appears to be central. No masses noted. No JVD or thyromegaly appreciated. No carotid bruit. RESPIRATORY: Chest is symmetrical. No intercostals muscle retraction or any accessory muscle activation. There is no chest wall tenderness. Breath sounds are heard bilaterally. No rales or rhonchi heard. No evidence of any consolidation. BREASTS: Deferred. HEART: The PMI could not be palpated. No palpable precordial events. S1 and S2 are normal. No S3 or S4 heard. No pericardial rub or any click heard. ABDOMEN: No vessel pulsations or distention. No tenderness. No organomegaly appreciated. No abdominal bruit. Bowel sounds are normally heard. : Deferred. RECTAL: Deferred. LYMPHATIC: No lymphadenopathy noted in the neck or groin. EXTREMITIES: No hematoma bleeding of the arterial puncture site MUSCULOSKELETAL: No acute joint deformities or swelling. SKIN: There are no significant scars or skin rash noted. NEUROPSYCHIATRIC: The patient is alert and oriented x3. Appears to be in a good mood. The higher functions are grossly within normal limits. No tremors or rigidity noted. Data : 09/11/21 04:26 09/11/21 04:26 Other Labs: Laboratory Last Values WBC 19.5 10^3/uL (4.0-10.0) H 09/11/21 04:26 RBC 4.98 10^6/uL (4.1-5.3) 09/11/21 04:26 Hgb 14.2 g/dL (11.7-16.6) 09/11/21 04:26 Hct 44.1 % (42.0-52.0) 09/11/21 04:26 MCV 88.6 fl (80-94) 09/11/21 04:26 MCH 28.5 pg (28.0-34.0) 09/11/21 04:26 MCHC 32.2 g/dL (30.0-36.0) 09/11/21 04:26 RDW 13.8 % (12.1-15.1) 09/11/21 04:26 Plt Count 269 10^3/cmm (130-400) 09/11/21 04:26 MPV 11.2 fL (7.4-10.4) H 09/11/21 04:26 Neut % (Auto) 75.7 % 09/11/21 04:26 Lymph % (Auto) 16.0 % 09/11/21 04:26 [place] % (Auto) 6.7 % 09/11/21 04:26 Eos % (Auto) 0.7 % 09/11/21 04:26 Baso % (Auto) 0.3 % 09/11/21 04:26 Neut # (Auto) 14.75 10^3/uL (1.8-7.7) H 09/11/21 04:26 Lymph # (Auto) 3.1 10^3/uL (0.8-4.8) 09/11/21 04:26 [place] # (Auto) 1.3 10^3/uL (0.2-0.9) H 09/11/21 04:26 Eos # (Auto) 0.1 10^3/uL (0.0-0.8) 09/11/21 04:26 Baso # (Auto) 0.1 10^3/uL (0.0-0.1) 09/11/21 04:26 Nucleated RBC % (auto) 0 % 09/11/21 04:26 Nucleated RBCs # 0.0 /100WBC 09/11/21 04:26 ESR 14 mm/hr (0-10) H 09/09/21 10:47 D-Dimer <= 0.27 ug/mIFEU (0-0.59) 09/09/21 15:29 Sodium 138 mmol/L (136-145) 09/11/21 04:26 Potassium 4.5 mmol/L (3.5-5.1) 09/11/21 04:26 Chloride 102 mmol/L (98-107) 09/11/21 04:26 Carbon Dioxide 23 mmol/L (22-29) 09/11/21 04:26 Anion Gap 17.5 (5-19) 09/11/21 04:26 BUN 15 mg/dL (8-23) 09/11/21 04:26 Creatinine 0.8 mg/dL (0.7-1.2) 09/11/21 04:26 GFR Calculation 98.0 mL/min (90-130) 09/11/21 04:26 Glucose 98 mg/dL (65-115) 09/11/21 04:26 Calculated Osmolality 287 mOsm/kg (285-295) 09/11/21 04:26 Calcium 9.7 mg/dL (8.5-10.5) 09/11/21 04:26 Phosphorus 2.9 mg/dL (2.5-4.5) 09/11/21 04:26 Magnesium 2.1 mg/dL (1.7-2.3) 09/11/21 04:26 Total Bilirubin 0.4 mg/dL (0.15-1.2) 09/11/21 04:26 AST 16 U/L (0-40) 09/11/21 04:26 ALT 15 U/L (0-41) 09/11/21 04:26 Alkaline Phosphatase 63 IU/L (40-130) 09/11/21 04:26 Creatine Kinase 59 U/L (39-308) 09/09/21 11:05 Troponin T Baseline 14 ng/L (0-15) 09/09/21 11:05 Troponin T 120 Minute 23.49 ng/L (0-15) H 09/09/21 13:07 Delta Troponin T 9.49 ABS# (0-10) 09/09/21 13:07 Troponin T Hi Sens 6Hr 17.42 ng/L (0-15) H 09/09/21 16:47 Troponin T Hi Sens 6Hr Delta 3.42 ng/L (0-12) 09/09/21 16:47 C-Reactive Protein 3.0 mg/L (0.0-4.9) 09/09/21 11:05 NT-Pro-B Natriuret Pep 22 pg/mL (0-125) 09/09/21 11:05 Total Protein 6.2 g/dL (6.6-8.7) L 09/11/21 04:26 Albumin 4.6 g/dL (3.5-5.2) 09/11/21 04:26 Globulin 1.6 g/dL (1.3-4.6) 09/11/21 04:26 TSH 1.43 uIU/mL (0.27-4.20) 09/09/21 11:05 Urine Color Straw (Yellow) 09/09/21 11:05 Urine Appearance Clear (CLEAR) 09/09/21 11:05 Urine pH 7 (5-7) 09/09/21 11:05 Ur Specific [place] 1.015 (1.005-1.030) 09/09/21 11:05 Urine Protein Trace (Negative) 09/09/21 11:05 Urine Glucose (UA) Norm (Normal) 09/09/21 11:05 Urine Ketones Negative (Negative) 09/09/21 11:05 Urine Blood Neg (Negative) 09/09/21 11:05 Urine Nitrate Negative (Negative) 09/09/21 11:05 Urine Bilirubin Neg (Negative) 09/09/21 11:05 Urine Urobilinogen Norm mg/dL (Negative) 09/09/21 11:05 Ur Leukocyte Esterase Negative (Negative) 09/09/21 11:05 Urine RBC None /hpf (0-2) 09/09/21 11:05 Urine WBC None /hpf (0-5) 09/09/21 11:05 Ur Squamous Epith Cells None /hpf (0-5) 09/09/21 11:05 Amorphous Sediment 1+ /hpf 09/09/21 11:05 Urine Bacteria Trace /hpf (NONE) 09/09/21 11:05 A&P Assessment and plan (1) 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 He was found to have high- grade lesion in the right coronary artery. This was intervened with primary stenting. Currently he seems to be stable. Status: Acute (2) Benign essential hypertension with target blood pressure below 140/90: Blood pressure has been fluctuating. Seems to be slowly getting under control. Status: Acute (3) Dyslipidemia: May continue on the current medications. Status: Acute (4) COPD exacerbation: Patient was treated with the steroids. Status: Acute Plan Elevated white cell count-possibly from steroids. Patient is afebrile. History of irritable bowel syndrome, stable Anxiety /personality disorder Is a patient continues remain stable, may be discharged home from a cardiac standpoint. Appointment the [facility] in 1 week to be seen by nurse practitioner. Appointment with me in the office in 1 month In the event of the patient having unusual chest pain, shortness of breath or any new symptoms, advised to contact our office. 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
--- NOTE | 2021-09-11 14:34 | PC.NURSE ---
Discharge Note Patient discharged to home via private vehicle accompanied by SO. Discharge instructions reviewed with patient and/or community health program representative. Mobile pharmacy medications and/or prescriptions provided. Belongings/home medications returned. Gave pt's heart stent card and pt provided contact info for his question regarding disability info. case mgt notified.
== END 2021-09-11 14:37 | disposition home or self-care (01) ==
LOC: ER 12:12 → CSU 15:27
PROVIDERS: Internal Medicine Cardiovascular Disease; Admitting Provider Family Medicine; Emergency Provider Family Medicine; Visit Provider Internal Medicine
DX: I25.110 Atherosclerotic heart disease of native coronary artery with unstable angina pectoris (principal); R07.9 Chest pain, unspecified; J44.1 Chronic obstructive pulmonary disease with (acute) exacerbation; Z87.891 Personal history of nicotine dependence; Z82.49 Family history of ischemic heart disease and other diseases of the circulatory system; I10 Essential (primary) hypertension; E78.5 Hyperlipidemia, unspecified
CPT/HCPCS: 36415; 71045; 80053; 81001; 82550; 83735; 83880; 84100; 84443; 84484; 85025; 85378; 85651; 86140; 93005; 93306; 93458; 93975; 94640; 94664; 96360; 96361; 96372; 96374; 96375; 99152; 99153; 99285; C1725; C1769; C1874; C1887; C1894; C9113; C9600; G0378; J1644; J1650; J2250; J2930; J3010; J3490; J7030; J7512; Q0163; Q9967

== ENCOUNTER → 2021-09-20 11:34 | Outpatient (BNVA) | payer MEDICAID, SELFPAY | PROVIDERS: Visit Provider Nurse Practitioner Family | DX: I25.110 Atherosclerotic heart disease of native coronary artery with unstable angina pectoris (principal); I10 Essential (primary) hypertension | CPT/HCPCS: 36415; 80048 ==

== ENCOUNTER → 2021-10-25 15:47 | Outpatient (BNVA) | payer MEDICAID, SELFPAY | PROVIDERS: Visit Provider Internal Medicine Cardiovascular Disease | DX: I25.110 Atherosclerotic heart disease of native coronary artery with unstable angina pectoris (principal); E78.5 Hyperlipidemia, unspecified; I10 Essential (primary) hypertension; J44.1 Chronic obstructive pulmonary disease with (acute) exacerbation; Z87.891 Personal history of nicotine dependence | CPT/HCPCS: 99214 ==

== ENCOUNTER 2022-03-01 10:56 | Outpatient (CLI) | payer BC, MEDICAID, SELFPAY ==
--- NOTE | 2022-03-01 | CT_ITS ---
WS: [id number] LDCT LUNG CANCER SCREENING HISTORY: F17.210 TECHNIQUE: Axial imaging performed from the apices to 1 cm below the costophrenic angles. Coronal and sagittal reformats are submitted with axial MIP series. All CT scans at [facility] use at least one of these dose optimization techniques: automated exposure control; mA and/or kV adjustment per patient size (includes targeted exams where dose is matched to clinical indication); or iterativ e reconstruction. DLP: 96.47 mGy.cm DIvol: Mean CTDIvol: 1.60 (mGy) COMPARISON: None available. Diagnostic quality: Satisfactory Lung Nodules: Moderate pulmonary hyperexpansion. No mass or nodule. No pneumonia. No endobronchial le fareed or groundglass attenuation. Heart: Normal size heart. No pericardial effusion. Other findings: Numerous small lymph nodes in the mediastinum. Some these lymph nodes are calcified. No adrenal mass. CT/CT lung screening [id number] IMPRESSION: LUNG-RADS: 1-Negative FOLLOW UP: 12 Month: Continue annual screening with LDCT OTHER FINDINGS (S MODIFIER): None.
== END 2022-03-01 10:57 | disposition home or self-care (01) ==
LOC: RAD 10:58
PROVIDERS: PCP Nurse Practitioner Family; Visit Provider Nurse Practitioner Family
DX: Z12.2 Encounter for screening for malignant neoplasm of respiratory organs (principal); F17.200 Nicotine dependence, unspecified, uncomplicated
CPT/HCPCS: 71271

== ENCOUNTER 2022-07-30 10:03 | Outpatient (CLI) | payer OTHER, SELFPAY ==
[2022-07-30 10:28] VITALS: PULSE 58; RESP 18; O2SAT 98
[2022-07-30] MEDS: albuterol 2.5 mg/3 mL Neb INHALATION (10:28)
[2022-07-30 10:31] VITALS: PULSE 64
== END 2022-07-30 10:04 | disposition home or self-care (01) ==
LOC: RT 10:03
PROVIDERS: PCP Nurse Practitioner Family; Visit Provider Internal Medicine Gastroenterology
DX: Z02.71 Encounter for disability determination (principal); R06.02 Shortness of breath
CPT/HCPCS: 94060; J7613

== ENCOUNTER → 2022-08-22 13:36 | Outpatient (BNVA) | payer BC, MEDICAID, SELFPAY | PROVIDERS: PCP Nurse Practitioner Family; Visit Provider Nurse Practitioner Family | DX: I25.110 Atherosclerotic heart disease of native coronary artery with unstable angina pectoris (principal); I10 Essential (primary) hypertension; E78.5 Hyperlipidemia, unspecified | CPT/HCPCS: 36415; 80048; 83880; 85025 ==

== ENCOUNTER 2022-08-29 07:28 | Outpatient (CLI) | payer BC, MEDICAID, SELFPAY ==
--- NOTE | 2022-08-29 | ECG_ITS ---
[facility] Test Date: 2022-08-29 Pat Name: Beto Orourke Department: Room: Gender: Male Supervisor Word Processing: Jamila Miranda : 1960 Requested By: Teodora Zhong Order Number: [id number] Shun MD: Tiff Tabares M.D. Interpretive Statements NAME OF STUDY: LEXISCAN SESTAMIBI STRESS TEST INDICATION: Chest Pain, PROCEDURE: At the baseline, the EKG revealed normal sinus rhythm with a first-degree AV block. Poor R wave progression. Some nonspecific ST changes. The baseline heart was 61 bpm with a blood pressue of 135/75 mm of Hg Lexiscan was infused over a period of 20 seconds. A total of 0.4 milligrams of Lexiscan was infused. The stress phase was continued for a total of 5 minutes. Heart rate at the end of the stress phase was 75 bpm with a blood pressure 142/81 mm of Hg. The EKG at the peak infusion revealed no significant changes. Sestamibi was injected 20 seconds after the Lexiscan infusion. Heart rate at the end of the recovery phase was 75 bpm with a blood pressure of 149/88 mm of Hg. CONCLUSION: 1. No significant EKG changes with the LexiScan infusion 2. No LexiScan induced chest pain or cardiac arrhythmia 3. Normal blood pressure and heart rate response 4. Sestamibi/sestamibi perfusion scan pending; see separate report. Electronically Signed On 09-02-2022 23:00:04 CDT by Tiff Tabares M.D. [email or web address]
[2022-08-29 07:47] VITALS: BMI 19.2
--- NOTE | 2022-08-29 07:50 | NMCV_ITS ---
NM arlet perf SPECT r/s* [id number] Beto Orourke Age: 62 Gender: M : 1960 Exam Date: 08/29/2022 07:50 Ordering Phys: Teodora Zhong Technologist: AMBREEN De La Garza Exam Location: [facility] Indications: ATHEROSCLEROTIC HEART DISEASE, HYPERTENSION STRESS TEST Please see separate stress test report in [facility] for full findings IMAGE PROTOCOL Rest/Stress 1 Lexiscan Day Radiopharmaceutical Dose (mCi) Administration Site Administered by Rest: Tc-99m 10.4 IV AMBREEN Ashraf Sestamibi Stress:Tc-99m 32.4 IV AMBREEN Ashraf Sestamibi Rest: 29-Aug-2022 60 Discovery 630 Stress: 29-Aug-2022 30 Discovery 630 0.4mg Lexiscan. Images obtained in supine and prone position. SPECT RESULTS Technical Quality: Excellent Raw Data Analysis: Normal Image Corrections: No attenuation or motion correction applied Summed Stress Score: 5 Summed Rest Score: 1 Summed Difference Score: 4 PERFUSION FINDINGS Small to moderate area of slightly decreased tracer uptake involving the mid inferoseptal, apical septal, LV apex and apical lateral segments. Some reversibility was noted in these areas with the supine imaging. However with the prone imaging, there was no significant reversible defects. FUNCTIONAL RESULTS (calculated via Gated SPECT) Stress Image LV EF (%): 71 Stress EDV (mL):116 TID: 0.97 Stress ESV (mL):34 FUNCTIONAL FINDINGS: Segmental wall motion analysis revealing no gross wall motion abnormalities IMPRESSIONS 1. Myocardial perfusion imaging revealing small to moderate area of slightly decreased tracer uptake in the inferoseptal, apical septal, and apical lateral and LV apex with some reversibility, suggesting ischemia in distribution of the left and descending artery/circumflex artery. However because of the inconsistency, the reliability is questionable. Clinical correlation is recommended 2. Normal LV ejection fraction 71%. 3. LV wall motion analysis revealing no gross wall motion abnormalities. 4. Normal LV volume Dr Tiff Tabares MD [facility] (Electronically Signed) Final Date: 29 August 2022 14:14 S
[2022-08-29] MEDS: regadenoson 0.4 Mg/5 ml Syringe IVP (09:15)
[2022-08-29 09:30] VITALS: BP 149/88; PULSE 68
== END 2022-08-29 07:29 | disposition home or self-care (01) ==
LOC: CDL 07:29
PROVIDERS: PCP Nurse Practitioner Family; Visit Provider Nurse Practitioner Family
DX: R07.9 Chest pain, unspecified (principal)
CPT/HCPCS: 36415; 78452; 93017; 96374; A9500; J2785

== ENCOUNTER 2022-10-05 12:35 | Outpatient (CLI) | payer BC, MEDICAID, SELFPAY ==
[2022-10-05 12:56] LABS: Basophils # 0.1 10^3/uL (0.0-0.1); Basophils % 0.9 %; Eosinophils # 0.9 10^3/uL (0.0-0.8); Eosinophils % 10.4 %; Hematocrit 45.5 % (42.0-52.0); Hemoglobin 14.6 g/dL (11.7-16.6); Lymphocytes # 2.3 10^3/uL (0.8-4.8); Lymphocytes % 26.1 %; Mean Corpuscular HGB Conc 32.1 g/dL (30.0-36.0); Mean Corpuscular Volume 87.3 fl (80-94); Mean Platelet Volume 10.1 fL (7.4-10.4); Monocytes # 0.6 10^3/uL (0.2-0.9); Monocytes % 6.3 %; Neutrophils # 4.93 10^3/uL (1.8-7.7); Neutrophils % 55.8 %; Nucleated Red Blood Cells % 0 %; Platelet Count 247 10^3/cmm (130-400); Red Blood Count 5.21 10^6/uL (4.1-5.3); White Blood Count 8.8 10^3/uL (4.0-10.0)
[2022-10-05 13:07] LABS: INR 1.02 (0.83-1.21); Prothrombin Time (Patient) 13.7 Seconds (12.0-15.1)
[2022-10-05 13:21] LABS: Anion Gap 14.4 (5-19); Blood Urea Nitrogen 11 mg/dL (8-23); Calcium 8.6 mg/dL (8.5-10.5); Carbon Dioxide 25 mmol/L (22-29); Chloride 103 mmol/L (98-107); Glomerular Filtration Rate 97.6 mL/min (90-130); Glucose 125 mg/dL (65-115); NT Pro B Type Natriuretic Pept 79 pg/mL (0-125); Osmolality Calculated 287 mOsm/kg (285-295); Potassium 4.4 mmol/L (3.5-5.1); Sodium 138 mmol/L (136-145)
--- NOTE | 2022-10-14 13:35 | W.PM.OPSFHP ---
Same Day Surgery H&P Indication for Procedure/HPI DATE OF PROCEDURE: 10/08/2022 CHIEF COMPLAINT/INDICATIONFOR SURGICAL PROCEDURE: Chest pain/abnormal stress test PREOP DIAGNOSIS: Chest pain/abnormal stress test PLANNED PROCEDURE: Left heart cath with possible percutaneous coronary intervention 62-year-old man with past medical history of hypertension who has been having on and off chest pain episodes. He underwent stress test that was abnormal. Plan for coronary angiogram with possible percutaneous coronary intervention today. Medications/Allergies* Home Medications Medication Instructions Recorded Confirmed Type acetaminophen 500 mg tablet 500 mg PO Q4H PRN Pain 09/01/21 10/08/22 History albuterol sulfate 90 mcg/actuation 2 puff inhalation QID PRN 09/01/21 10/05/22 History aerosol inhaler Shortness Of Breath diphenhydramine HCl 25 mg capsule 50 mg PO BEDTIME PRN Itching 10/25/21 10/08/22 History (Benadryl) Allergies/Adverse Reactions Allergy/AdvReac Type Severity Reaction Status Date / Time naproxen [From Aleve] Allergy UNKNOWN Verified 10/05/22 11:12 Pertinent History/Comorbid Conditions* Medical History (Updated 09/12/21 @ 00:01 by RANGEL Ochoa) COPD (chronic obstructive pulmonary disease) History of COPD History of stent insertion of renal artery No pertinent family history Renal artery stenosis Surgical History (Updated 09/20/21 @ 10:55 by PAPITO Pacheco) S/P right coronary artery (RCA) stent placement Family History (Updated 10/25/21 @ 15:56 by Malka Ling RN) Diabetes Father Mother CAD (coronary artery disease) Father Mother Grandfather Grandmother Lung disease Father Brother Stroke Father Denies family history of Clotting disorder Dementia Suicide Anesthesia complication Bleeding disorder Cancer Social History Smoking and tobacco status: former smoker Alcohol intake: never Substance/Drug Use: never Pertinent Exam Findings alert, oriented x 3, clear to auscultation bilaterally and regular rate & rhythm Conscious Sedation Assessment PATIENT ASSESSED PRIOR TO SEDATION, WITH NO CHANGE NOTED: Yes AIRWAY EVAL/ANESTHESIA PLAN: normal airway, ASA III, Local Anesthesia, Risks, benefits & alternatives of sedation and/or procedure discussed and Patient agrees to continue as planned Recommendations Surgery/Procedure today (Left heart cath with possible percutaneous coronary intervention) Coding Level of Care Code Acute Code for Chg Fwd Diagnoses
== END 2022-10-05 12:36 | disposition home or self-care (01) ==
LOC: LAB 12:37
PROVIDERS: PCP Nurse Practitioner Family; Visit Provider Internal Medicine Cardiovascular Disease
DX: I25.110 Atherosclerotic heart disease of native coronary artery with unstable angina pectoris (principal); I10 Essential (primary) hypertension; E78.5 Hyperlipidemia, unspecified
CPT/HCPCS: 36415; 80048; 83880; 85025; 85610; 86850; 86900

== ENCOUNTER 2022-10-08 08:01 | Outpatient (CLI) | payer BC, MEDICAID, SELFPAY ==
[2022-10-08] VITALS (17 sets, daily range): BP systolic 122–163; BP diastolic 77–98; PULSE 48–66; RESP 12–20; TEMP 36.2; O2SAT 83–97; BMI 19.2
[2022-10-08] MEDS: diphenhydrAMINE 50 mg Capsule PO (08:25)
[2022-10-08] MEDS: aspirin 325 mg Tablet PO (08:25)
--- NOTE | 2022-10-08 08:30 | XACV_ITS ---
Exam Room: 2 Ht: 183 cm Wt: 64 kg BSA: 1.80 m2 Gender: Male : 1960 Exam Priority: Routine Procedure(s): Procedure Description: Diagnostic procedure Procedure Description: Left Heart Catheterization Procedure Description: Coronary Angiography Rayshawn KERN; Diagnostic Cath Status: Elective Diagnostic Findings * INDICATION: 62-year-old man with past medical history of hypertension who has been having on and off chest pain episodes. He underwent stress test that was abnormal. Plan for coronary angiogram with possible percutaneous coronary intervention today. * No significant disease noted in the Left Main, Left Anterior Descending, Right, or Circumflex coronary arteries. * Coronary angiography shows right dominance. Conclusions 1. No significant disease noted in the Left Main, Left Anterior Descending, Right, or Circumflex coronary arteries. 2. Normal left ventricular systolic function. Ejection fraction of 50%. Recommendations * Aggressive risk factor modification. * Outpatient cardiology follow up in 4 weeks. Interventional RX Recommendation: medical therapy and/or counseling Diagnostic RX Recommendation: medical therapy and/or counseling Anticoagulation: Heparin Ventriculography Ejection Fraction: 50.0 % Pressures Phase:Rest AO : 108 / 79 ( 93 ) @ 10:07:00 AM 89 / 43 ( 63 ) @ 10:12:00 AM 90 / 43 ( 63 ) @ 10:12:00 AM LV : 116 / -15 / 11 @ 10:11:00 AM 95 / -27 / -5 @ 10:11:00 AM Valves Phase:DefaultPhase AV : 6.0 @ 9:17:05 AM AV Mean Gradient: 8.0 @ 9:17:05 AM 8.0 @ 9:17:05 AM Clinical Evaluation EBL: 5mL-10mL Procedural Details Procedure Consent Obtained. Admit Source: Out Patient. Pre-Procedure Time Out. Identified patient by full name and date of as verbalized by the patient/guarantor. Does the consent match the physician's order: Yes. Accurate & Complete Informed Consent: Yes. Inpatient/Outpatient History & Physical on Chart: Yes. If H&P is completed, is and addenduem needed: Yes; If yes, is the addendum complete: Yes. Visualize and Verify Site with Patient/Guarantor: N/A. Relevant Radiology Images available: N/A. Pre-op teaching completed and patient verbalized understanding. The risks, benefits, and alternatives of sedation and/or procedure were discussed by physician. The patient agrees to continue. Procedure started. [facility] Clinical Fraility Score: 3: Managing Well. Revenue Audit Clerk Indications: Worsening Angina. Chest Pain Symptom Assessment: Typical Angina Symptoms. Correct patient, site and procedure confirmed by cath team. Current diagnosis: Chest Pain. PERRLA. Strong, equal hand roll edge stitcher hand bilaterally. Lungs clear x 5 lobes. IV Site on Arrival: 20 gauge in the right forearm. IV Fluids: 0.9% NaCl at KVO. 0 mL infused prior to quality assurance qa lab technician. Pre Procedural Pulses: bilateral radial was 3+. Pre Procedural Pulses: bilateral dorsalis pedis was 2+. Oxygen started at 2liters/min via nasal canula. right groin was prepped with chloroprep then draped in the usual sterile fashion. right radial was prepped with chloroprep then draped in the usual sterile fashion. Physician notified. Baseline sample Acquired. HR: 58 BPM. Physician arrived. Physician scrubbed in. Immediate Pre-Procedure Time Out. Correct Patient: Yes; Correct Procedure: Yes; Correct Site: Yes; Correct Patient Position: Yes; Correct Supplies: Yes; Dried Flammable Prep: Yes; Blood Products Available: N/A;. Lidocaine 1% infiltrated to the right radial. Arterial access obtained. A 5 albanian TIG catheter in over wire. Multiple views taken of left coronary artery. Catheter redirected to the RCA. Multiple views taken of right coronary artery. Catheter removed over the exchange wire. A 5 albanian Angled Pig catheter in over wire. EDP Sample taken: LV 116/-16,11; HR: 59 BPM; SpO2: 96%. LV gram performed in LEBRON @ 10 mL/second for a total of 30 mL. EDP Sample taken: LV 95/-28,-6; HR: 58 BPM; SpO2: 96%. Pullback taken: LV Off; AO 89/43(63); Mean: 8mmHg, Peak to Peak: 6mmHg, SEP: 53sec/min; HR: 57 BPM; SpO2: 96%. Catheter out. A TR Band was successful obtaining hemostatsis at the Right Radial artery insertion site. Post Procedure: Pulses reassessed and unchanged. PERRLA. Strong, equal hand roll edge stitcher hand bilaterally. No VTE prophylaxis required. Medication's Wasted: Heparin = 1000 u. Medication's Wasted: Nitro = 49.8 mg. Medication's Wasted: Other = Versed 1 mg. Total IV fluids: 25 mL. Medication's Wasted: Lidocaine 1% = 2 mL. Post-op diagnosis: non obstructive CAD. Complications: none. Estimated blood loss: 5mL-10mL. Responsiveness - Normal response to verbal stimuli; alert and oriented, PERRLA. Airway - Unaffected, no intervention required; spontaneous ventilation. Circulation: W/N/L, pulses unchanged. Nausea/Vomiting: No. Procedure completed. Patient transferred by wheelchair to CPRU. Vital chart was stopped. Access Site Site: Right Radial artery Sheath Size: 6 Fr Hemostasis Method: TR Band Hemostasis Success: Successful Procedure Medications Start: 9:05 AM Stop: 9:05 AM Medication: Versed Amount: 1 mg Route: I.V. Start: 9:05 AM Stop: 9:05 AM Medication: Fentanyl Amount: 50 mcg Route: I.V. Start: 9:06 AM Stop: 9:06 AM Medication: Nitrogylcerin Amount: 200 mcg Route: I.A. Start: 9:06 AM Stop: 9:06 AM Medication: Heparin Amount: 5000 units Route: I.V. Start: 9:06 AM Stop: 9:06 AM Medication: Versed Amount: 1 mg Route: I.V. Start: 9:06 AM Stop: 9:06 AM Medication: Fentanyl Amount: 25 mcg Route: I.V. Start: 9:08 AM Stop: 9:08 AM Medication: Versed Amount: 1 mg Route: I.V. Start: 9:08 AM Stop: 9:08 AM Medication: Fentanyl Amount: 25 mcg Route: I.V. I, the attending physician, have reviewed and verified all procedure medications. Yes, all medications given per verbal order History/Risk Factors Hypertension: Yes Dyslipidemia: Yes Peripheral Arterial Disease (PAD): No Myocardial Infarction (WV): Yes Obesity: No Renal Disease: No Tobacco Use: Current/Recent(w/in 1 year) Prior Interventions PCI: Yes CABG: No Valve Surgery: No Date of PCI: 09/10/2021 Report Signatures Finalized by Les Ray MD on 10/14/2022 01:40 PM
--- NOTE | 2022-10-08 10:10 | PC.NURSE ---
0920: Patient returned to CPRU from cath prestressed concrete laborer. TR Band to patients right wrist clean, dry, et intact. No drainage or hematoma. Vitals WDL. Will continue to monitor. 0950: Transfer orders received. TR Band to patients right wrist clean, dry, et intact. No drainage or hematoma. Vitals WDL. No c/o pain or discomfort. Report given to INDER Abraham. Patient transferred from CPRU to CSU via wheelchair. All belongings sent with patient.
--- NOTE | 2022-10-08 11:09 | PC.NURSE ---
Patient arrived to csu from phlebotomy lab assistant at 10:00. Report taken from argelia felix. TR in place with 14cc. small 1.5 cm hematoma distal to TR band noted upon arrival. argelia Schmitz came and looked at the hematoma and held pressure to site, hematoma resolved immediately after. Site has been soft with no signs of bleeding or hematoma development since.
--- NOTE | 2022-10-08 16:31 | PC.NURSE ---
IV removed at 16:00, patient tolerated well. Patient was anxious to leave the facility. I went to gather discharge instructions and told the patient not to leave until I returned with the discharge papers, patient proceeded to leave the the building without telling us. Caught patient in parking lot before they left the facility. Gave the patient verbal and written discharge education on appointments made and new medications, patient verbalized understanding. Patient then signed discharge packet and left facility with .
== END 2022-10-08 16:25 | disposition home or self-care (01) ==
LOC: CCL 08:01 → CSU 10:33
PROVIDERS: Internal Medicine; PCP Nurse Practitioner Family; Visit Provider Internal Medicine Cardiovascular Disease
DX: R94.39 Abnormal result of other cardiovascular function study (principal); I10 Essential (primary) hypertension; E78.5 Hyperlipidemia, unspecified; I25.2 Old myocardial infarction; F17.200 Nicotine dependence, unspecified, uncomplicated; R07.9 Chest pain, unspecified
CPT/HCPCS: 36415; 93458; 96365; 99152; C1769; C1887; C1894; J1644; J2250; J3010; J3490; J7030; Q0163; Q9967

== ENCOUNTER 2022-10-30 14:03 | Outpatient (CLI) | payer BC, MEDICAID, SELFPAY ==
--- NOTE | 2022-10-30 15:00 | USCV_ITS ---
Beto Orourke Age: 62 Gender: M : 1960 Exam Date: 10/30/2022 15:23 Ordering Phys: Teodora Zhong Technologist: Rebeca Coleman [place]am [place] [facility] [place]ication: TOES TURN BLUE Risk Factors: SMOKER 40 YEARS 1 PACK A DAY Previous Vascular Surgery: NONE PER PT RIGHT LEFT BP: 130.0 / 87.00 BP: 127.0/ 85.00 0 0 Waveform Velocity (cm/s) Velocity (cm/s) Waveform Biphasic 63.7 Iliac Prox 52.0 Biphasic Biphasic 49.7 Iliac Mid 66.0 Biphasic Biphasic 41.1 Iliac Distal 52.0 Biphasic Biphasic 43.3 SOCIAL SERVICE DIRECTOR 68.4 Biphasic Biphasic 57.1 SFA Prox 66.0 Biphasic Biphasic 66.0 SFA Mid 66.0 Triphasic Biphasic 66.0 SFA Dist 66.0 Biphasic Biphasic 45.1 POP 45.1 Biphasic Biphasic 59.0 WHITE WASHER PILER 44.3 Biphasic Biphasic 59.0 DPA 21.8 Biphasic MARY 0.7 0.9 FINDINGS RT WHITE WASHER PILER 120 RT DPA 100 Mild to moderate diffuse plaque in the iliac artery on the right side LT WHITE WASHER PILER 90 LT DPA 80 Moderate plaques in the infrapopliteal vessels on the left side CONCLUSIONS 1. Slightly diminished resting MARY on the right side suggesting mild peripheral artery disease 2. Abnormal resting MARY on the left side suggesting moderate peripheral artery disease, mostly involving the infrapopliteal vessels Dr Tiff Tabares MD [facility] (Electronically Signed) Final Date: 30 October 2022 19:25 S
== END 2022-10-30 14:04 | disposition home or self-care (01) ==
LOC: RAD 14:03
PROVIDERS: PCP Nurse Practitioner Family; Visit Provider Nurse Practitioner Family
DX: R09.89 Other specified symptoms and signs involving the circulatory and respiratory systems (principal); I70.1 Atherosclerosis of renal artery; I25.110 Atherosclerotic heart disease of native coronary artery with unstable angina pectoris; R94.39 Abnormal result of other cardiovascular function study
CPT/HCPCS: 93925

== ENCOUNTER → 2023-05-30 13:48 | Outpatient (BNVA) | payer BC, MEDICAID, SELFPAY | PROVIDERS: PCP Nurse Practitioner Family; Visit Provider Nurse Practitioner Family | DX: R05.8 Other specified cough (principal) | CPT/HCPCS: 71046 ==

== ENCOUNTER 2023-07-04 12:36 | Outpatient (CLI) | payer BC, MEDICAID, SELFPAY ==
[2023-07-04 12:58] VITALS: PULSE 80; RESP 18; O2SAT 98
[2023-07-04] MEDS: albuterol 2.5 mg/3 mL Neb INHALATION (13:00)
[2023-07-04 13:02] VITALS: PULSE 74
== END 2023-07-04 12:37 | disposition home or self-care (01) ==
LOC: RT 12:37
PROVIDERS: PCP Nurse Practitioner Family; Visit Provider Family Medicine
DX: J44.9 Chronic obstructive pulmonary disease, unspecified (principal)
CPT/HCPCS: 94060; J7613

== ENCOUNTER 2023-07-11 10:56 | Outpatient (CLI) | payer BC, MEDICAID, SELFPAY ==
--- NOTE | 2023-07-11 11:02 | CT_ITS ---
WS: [id number] LDCT LUNG CANCER SCREENING HISTORY: HX OF TOBACCO USE TECHNIQUE: Axial imaging performed from the apices to 1 cm below the costophrenic angles. Coronal and sagittal reformats are submitted with axial MIP series. All CT scans at [facility] use at least one of these dose optimization techniques: automated exposure control; mA and/or kV adjustment per patient size (includes targeted exams where dose is matched to clinical indication); or iterativ e reconstruction. DLP: 52.99 mGy.cm DIvol: Mean CTDIvol: 0.80 (mGy) COMPARISON: 03/01/2022 Diagnostic quality: Satisfactory Lungs: Pulmonary hyperexpansion. There is a new pleural nodule measuring 8 mm in the posterior RIGHT upper thorax. Hyperexpanded lungs from centrilobular emphysema. No additional nodules. There are a fe w benign calcified granulomata which are stable. No pneumonia. No mass. Heart: Normal size heart with no pericardial effusion.. Other findings: No mediastinal or hilar lymph nodes of any significance. Benign calcified lymph nodes . Mild atherosclerosis aorta. IMPRESSION: CT/CT lung screening [id number] LUNG-RADS: 3-Probably Benign FOLLOW UP: 6 Month LDCT OTHER FINDINGS (S MODIFIER): None.
== END 2023-07-11 10:57 | disposition home or self-care (01) ==
LOC: RAD 10:57
PROVIDERS: PCP Nurse Practitioner Family; Visit Provider Family Medicine
DX: Z12.2 Encounter for screening for malignant neoplasm of respiratory organs (principal); Z87.891 Personal history of nicotine dependence; R91.1 Solitary pulmonary nodule; J43.2 Centrilobular emphysema; J84.10 Pulmonary fibrosis, unspecified
CPT/HCPCS: 71271

== ENCOUNTER 2023-08-10 22:09 | Emergency (ER) | payer BC, MEDICAID, SELFPAY ==
[2023-08-10 22:13] VITALS: BP 137/93; PULSE 79; RESP 18; TEMP 36.6; O2SAT 97; BMI 18.3
--- NOTE | 2023-08-10 22:24 | PC.NURSE ---
Pt. states that he was at a friends shop. There were people at the shop with a Pit Bull. The patient states that he complemented them on their dog and they told him he was nice and that he could pet it. When patient reached down to pet the dog, he states that it jumped at his throat and he turned his head , so the dog bit his right ear.
--- NOTE | 2023-08-10 22:46 | PC.NURSE ---
[place] police department notified about dog bite. [place] police department states to have the patient follow up with them at the police department when they are done here at the hospital and they were going out to the location of where he was bitten
[2023-08-10] MEDS: oxyCODONE-APAP 5-325 mg Tablet 2 TAB PO (23:03)
[2023-08-10] MEDS: amoxicillin-clav 875-125 mg Tablet 1 TAB PO (23:03)
--- NOTE | 2023-08-10 23:55 | ED_ITS ---
HPI - Animal Bite General: Chief Complaint: Animal Bite Stated Complaint: Rt Ear Bitten Off Time Seen by Provider: 08/10/23 22:27 History of Present Illness: 62-year-old male patient presents after a dog attacked him. He sustained a single dog bite to the right ear. He is missing part of his ear. He brings this piece in with him on ice. Bleeding is controlled. No other injury. Evidently the dog can be observed. Associated symptoms: Deny fever(s) Review of Systems Const: Denies: fever(s) GI: Denies: vomiting Skin/Breast: Reports: new lesions [facility] ED PFSH: Medical History History of stent insertion of renal artery Renal artery stenosis History of COPD No pertinent family history COPD (chronic obstructive pulmonary disease) Surgical History S/P right coronary artery (RCA) stent placement Family History Father CAD (coronary artery disease) Diabetes Lung disease Stroke Mother CAD (coronary artery disease) Diabetes Grandfather CAD (coronary artery disease) Grandmother CAD (coronary artery disease) Brother Lung disease Denies family history of Clotting disorder Dementia Suicide Anesthesia complication Bleeding disorder Cancer Social History Smoking and tobacco/nicotine status: former use of tobacco/nicotine Alcohol intake: never Substance/Drug Use: never Physical Exam Const: COMMON NORMALS: no acute distress HENMT: COMMON NORMALS: Normal external nose present HEAD & SCALP: laceration FACE & SINUS: no edema NOSE: Normal external nose present EXTERNAL EAR: Yes other (r ear lac with significant tissue loss. irregular. ) Eye: COMMON NORMALS: Equal, round and reactive pupils present and EOMs intact bilaterally PUPIL: Yes Equal, round and reactive pupils present Neck/C-Spine: GENERAL: Yes trachea midline Chest: CHEST: Yes Symmetrical chest wall rise Resp: COMMON NORMALS: normal respiratory effort, No use of accessory muscles and clear to auscultation bilaterally AUSCULTATION: clear to auscultation bilaterally Cardio: COMMON NORMALS: regular rate and regular rhythm RATE: regular rate RHYTHM: regular rhythm Procedures Laceration Laceration 1: Site: other (r ear) Side (If applicable): right Size (cm): 3 Description: flap, irregular and contaminated Depth: simple, single layer Local Anesthetic: lidocaine 1% Amount of anesthesia used (mL): 5 Pre-repair: wound explored and irrigated extensively Skin layer closed with: other (prolene) Size (cm): 5-0 Number of sutures: 7 Technique: simple, interrupted Course Vital Signs: Vital signs: Vital Signs Temperature 98 F 08/10/23 22:13 Pulse Rate 79 08/10/23 22:13 Respiratory Rate 18 08/10/23 22:13 Blood Pressure 137/93 08/10/23 22:13 Pulse Oximetry 97 08/10/23 22:13 MDM - Animal Bite Medical Decision Making Laceration is repaired. Avulsion tissue could not be salvaged or reattached. Patient understands. He does have some open tissue left, where tissue was removed. He will be covered with antibiotics. Close outpatient follow-up for wound check and suture removal. He may wash with soap and water. Commissioned Police Officer's office was notified. Dog can be observed. By the owners report, the dog is vaccinated. Will return for any problems. All radiology interpretation(s) finalized by discharge Discharge Plan Discharge Patient Disposition: Home Clinical Impression: Dog bite, Laceration of ear, Avulsion of soft tissue Condition: Stable Prescriptions: New amoxicillin-pot clavulanate 875-125 mg tablet 1 tab PO BID Qty: 10 0RF hydrocodone-acetaminophen 5-325 mg tablet 1 tab PO Q8H PRN (Reason: pain) Qty: 7 0RF No Action diphenhydramine HCl [Benadryl] 25 mg capsule 50 mg PO BEDTIME PRN (Reason: Itching) clopidogrel 75 mg tablet 75 mg PO DAILY Qty: 90 3RF carvedilol 3.125 mg tablet 6.25 mg PO BID Qty: 180 3RF atorvastatin 40 mg Tablet 40 mg PO BEDTIME Qty: 90 0RF aspirin 81 mg Tablet,Delayed Release (Dr/Ec) 81 mg PO DAILY Qty: 90 0RF nitroglycerin 0.4 mg Tablet, Sublingual 0.4 mg sublingual Q5M PRN (Reason: Chest Pain) Qty: 25 0RF losartan 25 mg tablet 25 mg PO DAILY Qty: 90 2RF acetaminophen 500 mg Tablet 500 mg PO Q4H PRN (Reason: Pain) albuterol sulfate 90 mcg/actuation Hfa Aerosol Inhaler 2 puff INHALATION QID PRN (Reason: Shortness Of Breath) Discharge Orders: Discharge ED (Routine); Ordered 08/10/23 Ordered By: Marcellus Romero Referrals: Laureen Hirsch FNP [Primary Care Provider] - 4-7 days Patient Instructions: Animal Bite (ED), Laceration (ED), Opioid Safety, Pain Management Activity Restrictions/Additional Instructions: Antibiotics as directed. Ice for pain and swelling. You may use pain medication as well. Sutures should be removed in 7 days. See your doctor for this. You may shower tomorrow. Do not submerge in water. Clean with soap and water. Return for any problems. Coding Level of Care Code ED Secret Service Agent for Cory Almendarez
[2023-08-11] MEDS: ondansetron 4 MG Tablet PO (00:28)
== END 2023-08-11 00:30 | disposition home or self-care (01) ==
PROVIDERS: Emergency Provider Emergency Medicine; PCP Nurse Practitioner Family
DX: S01.351A Open bite of right ear, initial encounter (principal); W54.0XXA Bitten by dog, initial encounter; Z79.02 Long term (current) use of antithrombotics/antiplatelets; Z79.82 Long term (current) use of aspirin; Z87.891 Personal history of nicotine dependence; J44.9 Chronic obstructive pulmonary disease, unspecified
CPT/HCPCS: 99283; Q0162

== ENCOUNTER 2023-08-12 16:49 | Emergency (ER) | payer BC, MEDICAID, SELFPAY ==
[2023-08-12 16:53] VITALS: BP 127/83; PULSE 73; RESP 16; TEMP 36.9; O2SAT 95; BMI 17.9
--- NOTE | 2023-08-12 17:34 | W.ED.ANIMALB ---
HPI - Animal Bite General: Chief Complaint: Animal Bite Stated Complaint: dog bite on saturday, needs rabies shot Time Seen by Provider: 08/12/23 17:23 Source: patient Mode of arrival: ambulatory Limitations: no limitations History of Present Illness: Patient presents emergency department today accompanied by family for evaluation treatment of need for rabies postexposure prophylaxis. Patient's chart review shows he was seen here 2 days ago after being bitten in the right ear by a dog. Patient had suture repair due to large amount of soft tissue and cartilaginous loss to the ear and was started on antibiotics. Patient is taking his medications as prescribed. However, they were under the impression that the dog would be able to be caught and monitored however, they have not been able to catch the dog. Low enforcement encouraged them to come back to the emergency department to begin rabies prophylaxis. Review of Systems General: Reports: 10 or more systems reviewed and unremarkable except in HPI and below PFSH ED PFSH: Medical History History of stent insertion of renal artery Renal artery stenosis History of COPD No pertinent family history COPD (chronic obstructive pulmonary disease) Surgical History S/P right coronary artery (RCA) stent placement Family History Father CAD (coronary artery disease) Diabetes Lung disease Stroke Mother CAD (coronary artery disease) Diabetes Grandfather CAD (coronary artery disease) Grandmother CAD (coronary artery disease) Brother Lung disease Denies family history of Clotting disorder Dementia Suicide Anesthesia complication Bleeding disorder Cancer Social History Smoking and tobacco/nicotine status: former use of tobacco/nicotine Alcohol intake: never Substance/Drug Use: never Physical Exam Const: COMMON NORMALS: no acute distress, patient oriented x3 and alert HENMT: OTHER: Patient has a large amount of soft tissue and cartilaginous loss of the superior portion of his right ear. There are sutures in place. There is erythema and swelling still present from the initial wound. No signs of active draining. It is currently bandaged upon arrival in the emergency department. Eye: COMMON NORMALS: Equal, round and reactive pupils present, EOMs intact bilaterally and conjunctivae normal CONJUNCTIVA: Yes conjunctivae normal PUPIL: Yes Equal, round and reactive pupils present Neck/C-Spine: COMMON NORMALS: no JVD Lymph: LYMPHATIC: no lymphadenopathy noted Resp: COMMON NORMALS: normal respiratory effort, No retractions and No use of accessory muscles Cardio: COMMON NORMALS: no JVD and regular rate RATE: regular rate : COMMON NORMALS: Yes no CVA tenderness BLADDER/KIDNEY EXAM: Yes no CVA tenderness Back/Pelvis: COMMON NORMALS: no CVA tenderness, thoracic and lumbar spine normal to inspection and thoraco-lumbar ROM normal Extremity: COMMON NORMALS: normal to inspection, full ROM and no pedal edema Neuro: COMMON NORMALS: patient oriented x3 SENSORIUM/ORIENTATION: Yes alert Skin: COMMON NORMALS: no rashes or lesions noted and turgor normal GENERAL SKIN EXAM: no rashes or lesions noted and turgor normal Course Vital Signs: Vital signs: Vital Signs Temperature 98.4 F 08/12/23 16:53 Pulse Rate 73 08/12/23 16:53 Respiratory Rate 16 08/12/23 16:53 Blood Pressure 127/83 08/12/23 16:53 Pulse Oximetry 95 08/12/23 16:53 Oxygen Delivery Me thod Room Air 08/12/23 16:53 MDM - Animal Bite Medical Decision Making Patient presents to the ER today for initiation of rabies prophylaxis. Patient states he is currently on the antibiotics provided to him from the emergency department 2 days ago. He still has suturing in place from his original wound as well as bandaging. He is to keep all upcoming follow-up appointments for his wound and should continue his suture and wound care instructions as previously discussed. He needs to continue taking his antibiotics. First round of rabies prophylaxis was initiated including vaccination and immunoglobulin. After speaking with Dr. Ty, we will place immunoglobulin and a large muscle body rather than trying to inject into patient's right ear. Nursing has filled out the rabies postexposure treatment plan form to be sent over to the infusion center for the patient to have his continued regimen of rabies immunizations. Patient was notified of the need for continued rabies injections and that he would be contacted by the infusion center. He verbalized understanding and agreement to treatment plan. Differential Diagnosis Likely bite by animal, dog bite and rabies contact No radiology studies performed this visit Discharge Plan Discharge Patient Disposition: Home Clinical Impression: Laceration of ear, Dog bite, Bite by animal, Need for post exposure prophylaxis for rabies Condition: Stable Prescriptions: No Action diphenhydramine HCl [Benadryl] 25 mg capsule 50 mg PO BEDTIME PRN (Reason: Itching) clopidogrel 75 mg tablet 75 mg PO DAILY Qty: 90 3RF carvedilol 3.125 mg tablet 6.25 mg PO BID Qty: 180 3RF atorvastatin 40 mg Tablet 40 mg PO BEDTIME Qty: 90 0RF aspirin 81 mg Tablet,Delayed Release (Dr/Ec) 81 mg PO DAILY Qty: 90 0RF nitroglycerin 0.4 mg Tablet, Sublingual 0.4 mg sublingual Q5M PRN (Reason: Chest Pain) Qty: 25 0RF losartan 25 mg tablet 25 mg PO DAILY Qty: 90 2RF amoxicillin-pot clavulanate 875-125 mg tablet 1 tab PO BID Qty: 10 0RF hydrocodone-acetaminophen 5-325 mg tablet 1 tab PO Q8H PRN (Reason: pain) Qty: 7 0RF acetaminophen 500 mg Tablet 500 mg PO Q4H PRN (Reason: Pain) albuterol sulfate 90 mcg/actuation Hfa Aerosol Inhaler 2 puff INHALATION QID PRN (Reason: Shortness Of Breath) Discharge Orders: Discharge ED (Routine); Ordered 08/12/23 Ordered By: Mary Jane Valentine Referrals: Laureen Hirsch FNP [Primary Care Provider] - Discharge Diet: Usual diet Discharge Activity: Increase activity as tolerated Patient Instructions: Rabies Vaccine (By injection) (Imovax Rabies, RabAvert), Rabies Immune Globulin (By injection) (HyperRAB S/D, Imogam..., Pain Management Activity Restrictions/Additional Instructions: We have started the treatment course for prevention of rabies for you in the emergency department today. Unfortunately, you will need to receive a few more rounds of the rabies vaccine. This will be performed through the infusion center. We have sent over a form notifying them of your need for continued rabies vaccine administration. They should call you to set up a time to be seen over the next few days to complete the series. Continue taking your antibiotics as prescribed. Keep any upcoming appointments you have for recheck of your wound. Coding Level of Care Code ED Dyeing Machine Feeder for Cory Almendarez
[2023-08-12] MEDS: rabies vaccine 2.5 unit SDV IM (17:51)
[2023-08-12] MEDS: rabies IG 300 unit/mL SDV 1 mL 1200 UNIT IM (17:58)
== END 2023-08-12 18:11 | disposition home or self-care (01) ==
PROVIDERS: Emergency Provider Physician Assistant; PCP Nurse Practitioner Family
DX: Z29.14 Encounter for prophylactic rabies immune globulin (principal); Z20.3 Contact with and (suspected) exposure to rabies; Z23 Encounter for immunization; W54.0XXA Bitten by dog, initial encounter; J44.9 Chronic obstructive pulmonary disease, unspecified; Z87.891 Personal history of nicotine dependence; S01.351A Open bite of right ear, initial encounter; Z79.02 Long term (current) use of antithrombotics/antiplatelets; Z79.82 Long term (current) use of aspirin
CPT/HCPCS: 90375; 90471; 90675; 96372; 99283

== ENCOUNTER 2023-08-26 13:00 | Oncology outpatient (recurring) (ONCR) | payer BC, MEDICAID, SELFPAY ==
[2023-08-15 14:16] VITALS: BP 120/78; PULSE 87; RESP 16; TEMP 36.6; O2SAT 97
[2023-08-15] MEDS: rabies vaccine 2.5 unit SDV IM (14:19)
[2023-08-19 14:37] VITALS: BP 130/75; PULSE 77; RESP 16; TEMP 37.1; O2SAT 94
[2023-08-19] MEDS: rabies vaccine 2.5 unit SDV IM (15:04)
[2023-08-26] MEDS: rabies vaccine 2.5 unit SDV IM (13:44)
[2023-08-26 13:53] VITALS: BP 131/84; PULSE 65; RESP 18; TEMP 36.6; O2SAT 96
== END 2023-09-03 23:59 | disposition home or self-care (01) ==
PROVIDERS: PCP Nurse Practitioner Family; Visit Provider Physician Assistant
DX: Z20.3 Contact with and (suspected) exposure to rabies (principal); Z23 Encounter for immunization; S01.351A Open bite of right ear, initial encounter; W54.0XXA Bitten by dog, initial encounter; Z53.9 Procedure and treatment not carried out, unspecified reason
CPT/HCPCS: 90471; 90675

== ENCOUNTER 2024-01-04 12:34 | Inpatient (IN) | payer BC, SELFPAY ==
[2024-01-04] VITALS (12 sets, daily range): BP systolic 147–169; BP diastolic 89–112; PULSE 59–81; RESP 16–20; TEMP 36.4–36.8; O2SAT 93–97; BMI 18.3
--- NOTE | 2024-01-04 12:41 | ECG_ITS ---
[facility] Test Date: 2024-01-04 Pat Name: Beto Orourke Department: Room: Gender: Male Airfield Services Officer: : 1960 Requested By: Diaz Agustin Order Number: [id number] Shun MD: Les Ray M.D. Measurements Intervals [place] Rate: 71 P: 74 RI: 195 QRS: 70 QRSD: 102 T: 59 QT: 354 QTc: 387 Interpretive Statements SINUS RHYTHM Compared to ECG 09/09/2021 16:00:37 T-wave abnormality no longer present Electronically Signed On 01-04-2024 15:07:28 CDT by Les Ray M.D. [email or web address] [email or web address] memorial hospitalThe [facility] [id number] f
--- NOTE | 2024-01-04 14:08 | XRR_ITS ---
PROCEDURE INFORMATION: Exam: XR Chest Exam date and time: 01/04/2024 2:27 PM Age: 63 years old Clinical indication: Cough and dyspnea; Patient HX: SOB; Chest pain; Dizziness TECHNIQUE: Imaging protocol: Radiologic exam of the chest. Views: 1 view. COMPARISON: CT lung screening [id number] 07/11/2023 11:07 AM FINDINGS: Lungs: Hyperinflated lungs. No focal consolidation. Pleural spaces: Unremarkable. No pleural effusion. No pneumothorax. Heart/Mediastinum: Unremarkable. No cardiomegaly. Vasculature: Unfolding of the thoracic aorta. Bones/joints: Moderate degenerative disease of bilateral acromioclavicular joints and mild degenerative disease of bilateral glenohumeral joints. XR/XR chest 1V portable [id number] IMPRESSION: No acute cardiopulmonary process.
--- NOTE | 2024-01-04 14:08 | CTR_ITS ---
PROCEDURE INFORMATION: Exam: CT Head Without Contrast Exam date and time: 01/04/2024 2:19 PM Age: 63 years old Clinical indication: Injury or trauma; Fall; Blunt trauma (contusions or hematomas) TECHNIQUE: Imaging protocol: Computed tomography of the head without contrast. Radiation optimization: All CT scans at this facility use at least one of these dose optimization techniques: automated exposure control; mA and/or kV adjustment per patient size (includes targeted exams where dose is matched to clinical indication); or iterative reconstruction. COMPARISON: CR XR cervical spine 3V* [id number] 10/09/2018 11:45 AM RADIATION DOSE METRICS: Total DLP (mGy-cm): 1081.98 FINDINGS: Brain: Normal. No hemorrhage. Unremarkable white matter. No mass effect. Cerebral ventricles: No ventriculomegaly. Paranasal sinuses: Frothy secretions in bilateral sphenoid sinuses. Mucosal bilateral ethmoid air cells. Mastoid air cells: Visualized mastoid air cells are well aerated. Bones: Unremarkable. No acute fracture. Soft tissues: Unremarkable. CT/CT head wo con* [id number] IMPRESSION: No intracranial posttraumatic changes.
--- NOTE | 2024-01-04 14:11 | ED_ITS ---
HPI - SOB/Dyspnea 2 General: Chief Complaint: Shortness of Breath/Dyspnea Stated Complaint: Sob, Chest Pain, dizzy, fell Time Seen by Provider: 01/04/24 13:50 History of Present Illness: HPI Narrative: 63-year-old presents emergency room comp laining of shortness of breath with any exertion and some vague chest discomfort on the left side. He has severe COPD but additionally does have known coronary artery disease. Last several days and increasing shortness of breath with any activity. He is a former smoker. He has a known history of coronary disease in September 2021 he had an angiogram done that did show about 50% narrowing of one of the branches of the diagonal off of the LAD his left main was normal in his left circumflex had no significant stenosis. Patient had a high-grade stenosis lesion in the right coronary artery that was stented. In August 2022 he had a stress test there is some questionable reversibility in the area in the distribution of the left and portions of the circumflex artery. There is a comment in the stress test that it was reliability of the test was questionable because it was inconsistent. In October 2022 he had an angiogram interestingly his ejection fraction compared to the previous one had gone from 70 to 50% there was a notation of no significant disease in the left main and the LAD or in the right or circumflex. Associated symptoms: Reports chest congestion and chest pain; Deny abdominal pain or fever(s) Related Data Home Medications Medication Instructions Recorded Confirmed albuterol sulfate 90 mcg/actuation 2 puff inhalation QID PRN 09/01/21 11/21/23 aerosol inhaler Shortness Of Breath Previous Rx's Medication Instructions Recorded aspirin 81 mg tablet,delayed 81 mg PO DAILY #90 tabs 09/11/21 release nitroglycerin 0.4 mg sublingual 0.4 mg sublingual Q5M PRN Chest 09/11/21 tablet Pain #25 tabs carvedilol 3.125 mg tablet 6.25 mg (2 x 3.125 mg) PO BID #180 08/19/23 tabs Allergies Allergy/AdvReac Type Severity Reaction Status Date / Time naproxen [From Aleve] Allergy UNKNOWN Verified 11/21/23 11:00 Review of Systems 2 Const: Denies: fever(s) or chills Card: Reports: chest pain Resp: Reports: dyspnea, productive cough, wheezing and chest congestion GI: Denies: abdominal pain : Denies: dysuria, urinary frequency or urinary urgency Musc: Denies: neck pain or back pain Skin/Breast: Denies: rash PFSH ED 2 PFSH: Medical History History of stent insertion of renal artery Renal artery stenosis History of COPD No pertinent family history COPD (chronic obstructive pulmonary disease) Surgical History S/P right coronary artery (RCA) stent placement Family History Father CAD (coronary artery disease) Diabetes Lung disease Stroke Mother CAD (coronary artery disease) Diabetes Grandfather CAD (coronary artery disease) Grandmother CAD (coronary artery disease) Brother Lung disease Denies family history of Clotting disorder Dementia Suicide Anesthesia complication Bleeding disorder Cancer Social History Smoking and tobacco/nicotine status: former use of tobacco/nicotine Alcohol intake: never Substance/Drug Use: never Physical Exam 2 Const: GENERAL APPEARANCE: cooperative ORIENTATION/CONSCIOUSNESS: Yes awake, Yes oriented to person, Yes oriented to place and Yes oriented to time HENMT: COMMON NORMALS: normocephalic, atraumatic and hearing grossly normal bilaterally HEAD & SCALP: normocephalic and atraumatic Resp: COMMON NORMALS: normal respiratory effort, No retractions, No use of accessory muscles and clear to auscultation bilaterally AUSCULTATION: clear to auscultation bilaterally Cardio: COMMON NORMALS: regular rate, regular rhythm and No murmurs present (Cardio) RATE: regular rate RHYTHM: regular rhythm GI: COMMON NORMALS: Soft to palpation and No hepatosplenomegaly present A USCULTATION: Yes normoactive bowel sounds PALPATION: Yes Soft to palpation, No Tenderness to palpation present (GI), No Guarding due to palpation present (GI) and Yes No hepatosplenomegaly present Extremity: COMMON NORMALS: normal to inspection, capillary refill normal, no clubbing, cyanosis or edema, no calf tenderness and no pedal edema Neuro: SENSORIUM/ORIENTATION: Yes oriented to person, Yes oriented to place and Yes oriented to time Skin: COMMON NORMALS: no rashes or lesions noted GENERAL SKIN EXAM: no rashes or lesions noted Course 2 Vital Signs: Vital signs: Vital Signs Temperature 97.6 F 01/04/24 12:47 Pulse Rate 62 01/04/24 15:33 Respiratory Rate 18 01/04/24 15:33 Blood Pressure 159/112 01/04/24 15:33 Pulse Oximetry 95 01/04/24 15:33 Oxygen Delivery Me thod Room Air 01/04/24 15:29 MDM - SOB/Dyspnea Medical Decision Making EKG did not show any specific changes. Reviewed his cardiac history. I suspect this is more exacerbation of his COPD and this is back further that he has underlying pulmonary hypertension. Given his bump in troponins however he will need further evaluation. I discussed Dr. Ray for consultation also discussed with hospitalist will place him on observation complete the cardiac workup and treat his COPD exacerbation Medical Records I reviewed the patient's medical records. Lab Data I reviewed the patient's lab results. 01/04/24 14:40 01/04/24 14:40 Labs/Radiology: Radiology Impressions Chest X-Ray 01/04/24 14:08 IMPRESSION: No acute cardiopulmonary process. Head CT 01/04/24 14:08 IMPRESSION: No intracranial posttraumatic changes. Laboratory Results WBC 9.36 10^3/uL (3.29-11.43) 01/04/24 14:40 RBC 5.60 10^6/uL (3.85-5.65) 01/04/24 14:40 Hgb 15.70 g/dL (11.27-16.99) 01/04/24 14:40 Hct 48.0 % (37-53) 01/04/24 14:40 MCV 85.7 fl (82-101) 01/04/24 14:40 MCH 28.0 pg (27-33) 01/04/24 14:40 MCHC 32.7 g/dL (30-55) 01/04/24 14:40 RDW 13.3 % (12.1-15.1) 01/04/24 14:40 Plt Count 244 10^3/cmm (157-399) 01/04/24 14:40 MPV 10.1 fL (7.4-10.4) 01/04/24 14:40 Neut % (Auto) 57.0 % 01/04/24 14:40 Lymph % (Auto) 27.7 % 01/04/24 14:40 Teller % (Auto) 6.6 % 01/04/24 14:40 Eos % (Auto) 7.2 % 01/04/24 14:40 Baso % (Auto) 0.9 % 01/04/24 14:40 Neut # (Auto) 5.34 10^3/uL (1.8-7.7) 01/04/24 14:40 Lymph # (Auto) 2.6 10^3/uL (0.8-4.8) 01/04/24 14:40 Teller # (Auto) 0.6 10^3/uL (0.2-0.9) 01/04/24 14:40 Eos # (Auto) 0.7 10^3/uL (0.0-0.8) 01/04/24 14:40 Baso # (Auto) 0.1 10^3/uL (0.0-0.1) 01/04/24 14:40 Nucleated RBC % (auto) 0 % 01/04/24 14:40 Nucleated RBCs # 0.0 /100WBC 01/04/24 14:40 Sodium 138 mmol/L (136-145) 01/04/24 14:40 Potassium 4.9 mmol/L (3.5-5.1) 01/04/24 14:40 Chloride 102 mmol/L (98-107) 01/04/24 14:40 Carbon Dioxide 24 mmol/L (22-29) 01/04/24 14:40 Anion Gap 16.9 (5-19) 01/04/24 14:40 BUN 14 mg/dL (8-23) 01/04/24 14:40 Creatinine 0.7 mg/dL (0.7-1.2) 01/04/24 14:40 GFR Calculation 113.5 mL/min (90-130) 01/04/24 14:40 Glucose 97 mg/dL (65-115) 01/04/24 14:40 Calculated Osmolality 286 mOsm/kg (285-295) 01/04/24 14:40 Calcium 9.3 mg/dL (8.5-10.5) 01/04/24 14:40 Total Bilirubin 0.3 mg/dL (0.15-1.2) 01/04/24 14:40 AST 22 U/L (0-40) 01/04/24 14:40 ALT 14 U/L (0-41) 01/04/24 14:40 Alkaline Phosphatase 89 U/L (40-130) 01/04/24 14:40 Troponin T Baseline 14 ng/L (0-15) 01/04/24 14:40 Troponin T 120 Minute 19.23 ng/L (0-15) H 01/04/24 16:35 Delta Troponin T 5.23 ABS# (0-10) 01/04/24 16:35 Total Protein 6.5 g/dL (6.6-8.7) L 01/04/24 14:40 Albumin 4.6 g/dL (3.5-5.2) 01/04/24 14:40 Globulin 1.9 g/dL (1.3-4.6) 01/04/24 14:40 Urine Color Yellow (Yellow) 01/04/24 16:07 Urine Appearance Clear (CLEAR) 01/04/24 16:07 Urine pH 7.5 (5-7) 01/04/24 16:07 Ur Specific [place] 1.010 (1.005-1.030) 01/04/24 16:07 Urine Protein Negative (Negative) 01/04/24 16:07 Urine Glucose (UA) Negative (Normal) 01/04/24 16:07 Urine Ketones Negative (Negative) 01/04/24 16:07 Urine Blood Negative (Negative) 01/04/24 16:07 Urine Nitrate Negative (Negative) 01/04/24 16:07 Urine Bilirubin Negative (Negative) 01/04/24 16:07 Urine Urobilinogen 0.2 mg/dL (Negative) 01/04/24 16:07 Ur Leukocyte Esterase Negative (Negative) 01/04/24 16:07 Urine RBC 0-2 /hpf (0-2) 01/04/24 16:07 Urine WBC 0-5 /hpf (0-5) 01/04/24 16:07 Ur Squamous Epith Cells 0-5 /hpf (0-5) 01/04/24 16:07 Amorphous Sediment Not Reportable 01/04/24 16:07 Urine Bacteria None seen /hpf (NONE) 01/04/24 16:07 Hyaline Casts 0-4 /lpf H 01/04/24 16:07 All radiology interpretation(s) finalized by discharge Discharge Plan Discharge Patient Disposition: Placed in Observation Clinical Impression: COPD exacerbation, Chest pain, Atherosclerotic heart disease of [place] coronary artery with other forms of angina pectoris Condition: Stable Prescriptions: No Action carvedilol 3.125 mg tablet 6.25 mg PO BID Qty: 180 3RF aspirin 81 mg Tablet,Delayed Release (Dr/Ec) 81 mg PO DAILY Qty: 90 0RF nitroglycerin 0.4 mg Tablet, Sublingual 0.4 mg sublingual Q5M PRN (Reason: Chest Pain) Qty: 25 0RF albuterol sulfate 90 mcg/actuation Hfa Aerosol Inhaler 2 puff INHALATION QID PRN (Reason: Shortness Of Breath) Referrals: Laureen Hirsch FNP [Primary Care Provider] - Coding Level of Care Code ED Pattern [facility]anger for Cory Almendarez
[2024-01-04 14:45] LABS: Basophils # 0.1 10^3/uL (0.0-0.1); Basophils % 0.9 %; Eosinophils # 0.7 10^3/uL (0.0-0.8); Eosinophils % 7.2 %; Lymphocytes # 2.6 10^3/uL (0.8-4.8); Lymphocytes % 27.7 %; Mean Corpuscular HGB Conc 32.7 g/dL (30-55); Mean Corpuscular Volume 85.7 fl (82-101); Mean Platelet Volume 10.1 fL (7.4-10.4); Monocytes # 0.6 10^3/uL (0.2-0.9); Monocytes % 6.6 %; Neutrophils # 5.34 10^3/uL (1.8-7.7); Nucleated Red Blood Cells % 0 %; Platelet Count 244 10^3/cmm (157-399); Red Cell Distribution Width 13.3 % (12.1-15.1); White Blood Count 9.36 10^3/uL (3.29-11.43)
[2024-01-04] MEDS: ipratropium-albuterol 3 mL Neb INHALATION ×2 (15:04→21:45)
[2024-01-04 15:07] LABS: Alanine Aminotransferase 14 U/L (0-41); Albumin Level 4.6 g/dL (3.5-5.2); Alkaline Phosphatase 89 U/L (40-130); Anion Gap 16.9 (5-19); Aspartate Amino Transferase 22 U/L (0-40); Blood Urea Nitrogen 14 mg/dL (8-23); Calcium 9.3 mg/dL (8.5-10.5); Carbon Dioxide 24 mmol/L (22-29); Chloride 102 mmol/L (98-107); Creatinine Clr Calc Pharmacy 92.3385; Globulin 1.9 g/dL (1.3-4.6); Glomerular Filtration Rate 113.5 mL/min (90-130); Glucose 97 mg/dL (65-115); Osmolality Calculated 286 mOsm/kg (285-295); Potassium 4.9 mmol/L (3.5-5.1); Sodium 138 mmol/L (136-145); Total Bilirubin 0.3 mg/dL (0.15-1.2); Total Protein 6.5 g/dL (6.6-8.7)
[2024-01-04 15:08] LABS: Troponin(5th) Baseline 14 ng/L (0-15)
[2024-01-04] MEDS: dexamethasone 10 mg/mL INJ IM (15:12)
--- NOTE | 2024-01-04 16:00 | ECG_ITS ---
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 Measurements Intervals [place] Rate: 63 P: 79 SC: 212 QRS: 59 QRSD: 84 T: 67 QT: 364 QTc: 375 Interpretive Statements SINUS RHYTHM WITH FIRST DEGREE AV BLOCK ANTEROSEPTAL MYOCARDIAL INFARCTION , OF INDETERMINATE AGE [40+ ms Q WAVE IN V1-V4] Compared to ECG 01/04/2024 12:41:28 First degree AV block now present Myocardial infarct finding now present Electronically Signed On 01-04-2024 16:18:03 CDT by Les Ray M.D. [id number]
[2024-01-04 16:11] LABS: Charge for UA Resulting for Rev
[2024-01-04 16:16] LABS: Bilirubin Urine Negative (Negative); Blood Urine Negative (Negative); Glucose Urine UA Negative (Normal); Ketones Urine Negative (Negative); Leukocyte Esterase Urine Negative (Negative); Nitrate Urine Negative (Negative); Protein Urine Negative (Negative); Urine Appearance Clear (CLEAR); Urine Color Yellow (Yellow); Urobilinogen Urine 0.2 mg/dL (Negative); pH Urine 7.5 (5-7)
[2024-01-04 16:19] LABS: Bacteria Urine None Seen /hpf; Hyaline Casts Urine 0-4 /lpf; RBC Urine 0-2 /hpf (0-2); Squamous Epithelial Cell Urine 0-5 /hpf (0-5); WBC Urine 0-5 /hpf (0-5)
[2024-01-04 16:56] LABS: Troponin 5 2HR 19.23 ng/L (0-15); Troponin 5 2HR Delta 5.23 ABS# (0-10)
--- NOTE | 2024-01-04 17:31 | CTR_ITS ---
PROCEDURE INFORMATION: Exam: CTA Chest With Contrast Exam date and time: 01/04/2024 5:42 PM Age: 63 years old Clinical indication: Cough and shortness of breath; Prior surgery; Surgery date: 6+ months; Surgery type: Stents; Additional info: SOB, chest pain TECHNIQUE: Imaging protocol: Computed tomographic angiography of the chest with contrast. Exam focused on the arteries. 3D rendering (Not supervised by radiologist): MIP and/or 3D reconstructed images were created by the technologist. Radiation optimization: All CT scans at this facility use at least one of these dose optimization techniques: automated exposure control; mA and/or kV adjustment per patient size (includes targeted exams where dose is matched to clinical indication); or iterative reconstruction. Contrast material: OMNIPAQUE 350; Contrast volume: 72 ml; Contrast route: INTRAVENOUS (IV); COMPARISON: CT lung screening [id number] 07/11/2023 11:07 AM RADIATION DOSE METRICS: Total DLP (mGy-cm): 218.42 FINDINGS: Pulmonary arteries: Normal. No pulmonary emboli. Aorta: Vascular calcifications. No aortic aneurysm. No aortic dissection. Lungs: Bilateral apical predominant emphysematous changes. Calcified granulomas in the right upper lobe. Pleural spaces: Unremarkable. No pneumothorax. No pleural effusion. Heart: Unremarkable. No cardiomegaly. No pericardial effusion. Lymph nodes: Calcified right hilar, left hilar and subcarinal lymph nodes, from prior granulomatous disease. Spleen: Calcified left splenic granulomas. Bones/joints: Mild curvature of the lower thoracic spine convex to the left. Mild multilevel anterior osteophytes of the thoracic spine, consistent with mild degenerative disease. Soft tissues: Unremarkable. CT/CT angio chest PE protcl [id number] IMPRESSION: 1. No pulmonary embolism. 2. No acute infiltrates. COMMENTS: The presence of pulmonary emphysema on CT is an independent risk factor for lung cancer. In the absence of a history or active diagnosis of lung cancer, it is recommended that this patient with emphysema be evaluated for enrollment in a low dose CT lung cancer screening program.
--- NOTE | 2024-01-04 17:34 | P.HP_ITS ---
Providers/Chief Complaint 2 Primary Care Provider: Laureen Hirsch Chief Complaint: Sob, Chest Pain, dizzy, fell History of Present Illness Beto Orourke is a 63 year old male with a past medical history of hypertension, COPD, CAD, who presents [facility] due to shortness of breath, wheezing, chest pain. Patient tells me for the last week, he has had increased shortness of breath, shortness of breath with exertion, progressing to shortness of breath at rest, with audible wheezing. It has been a year since his last cigarette, he has a diagnosis of COPD. Does report anterior chest discomfort with his shortness of breath, no recent travel no fevers, chills, has a nonproductive cough, Review of Systems 2 Const: Denies: fever(s) or chills Card: Reports: chest pain Resp: Reports: dyspnea Medications/Allergies Home Medications Medication Instructions Recorded Confirmed Last Taken Type albuterol sulfate 90 mcg/actuation 2 puff inhalation QID PRN 09/01/21 11/21/23 Unknown History aerosol inhaler Shortness Of Breath aspirin 81 mg tablet,delayed 81 mg PO DAILY #90 tabs 09/11/21 11/21/23 10/07/22 10:30 Rx release nitroglycerin 0.4 mg sublingual 0.4 mg sublingual Q5M PRN Chest 09/11/21 11/21/23 Unknown Rx tablet Pain #25 tabs carvedilol 3.125 mg tablet 6.25 mg (2 x 3.125 mg) PO BID #180 08/19/23 11/21/23 Unknown Rx tabs Allergies Allergy/AdvReac Type Severity Reaction Status Date / Time naproxen [From Aleve] Allergy UNKNOWN Verified 11/21/23 11:00 PFSH Acute 2 PFSH: Medical History History of stent insertion of renal artery Renal artery stenosis History of COPD No pertinent family history COPD (chronic obstructive pulmonary disease) Surgical History S/P right coronary artery (RCA) stent placement Family History Father CAD (coronary artery disease) Diabetes Lung disease Stroke Mother CAD (coronary artery disease) Diabetes Grandfather CAD (coronary artery disease) Grandmother CAD (coronary artery disease) Brother Lung disease Denies family history of Clotting disorder Dementia Suicide Anesthesia complication Bleeding disorder Cancer Social History Smoking and tobacco/nicotine status: former use of tobacco/nicotine Alcohol intake: never Substance/Drug Use: never Vitals/I&O/Wt Last Vital Signs Temp 97.6 F 01/04/24 12:47 Pulse 62 01/04/24 15:33 Resp 18 01/04/24 15:33 BP 159/112 01/04/24 15:33 Pulse Ox 95 01/04/24 15:33 O2 Del Method Room Air 01/04/24 15:29 Weight last 48 hrs Weight 61.235 kg Physical Exam 2 Const: COMMON NORMALS: no acute distress and patient oriented x3 Eye: COMMON NORMALS: Equal, round and reactive pupils present and EOMs intact bilaterally Neck/C-Spine: COMMON NORMALS: full ROM and no lymphadenopathy Resp: COMMON NORMALS: normal respiratory effort, No retractions and No use of accessory muscles AUSCULTATION: wheezes Cardio: COMMON NORMALS: regular rate, regular rhythm, S1 normal heart sound present and S2 normal heart sound present RATE: regular rate RHYTHM: r egular rhythm HEART SOUNDS: S1 normal heart sound present and S2 normal heart sound present GI: COMMON NORMALS: Normal to inspection, nondistended, normoactive bowel sounds present, Soft to palpation and non-tender Extremity: COMMON NORMALS: no pedal edema Neuro: COMMON NORMALS: patient oriented x3, CN's II-XII intact bilaterally and moves all extremities Psych: COMMON NORMALS: mental status grossly normal Data 01/04/24 14:40 01/04/24 14:40 A&P Assessment and plan (1) Chest pain: (2) COPD exacerbation: Plan Chest pain ? Cath in October 2022 Conclusions 1. No significant disease noted in the Left Main, Left Anterior Descending, Right, or Circumflex coronary arteries. 2. Normal left ventricular systolic function. Ejection fraction of 50%. ? Serial EKGs, serial troponins, telemetry monitoring ? Aspirin, statin, Coreg ? 120-minute troponin 19.23, treat as NSTEMI, therapeutic Lovenox ? Cardiac echo COPD exacerbation ? DuoNeb -Budesonide ? Rocephin ? Azithromycin ? Solu-Medrol ? Monitor respiratory status closely ? Full code ? Lovenox for DVT prophylaxis Hypertension, continue home meds Attestations 2 Medical Necessity Statement*: Patient requires hospitalization, inpatient, greater than 2 midnights, for chest pain, shortness of breath Diagnoses Chest pain R07.9 COPD exacerbation J44.1
[2024-01-04] MEDS: iohexol 350 mg/mL 500 mL Btl (per mL) IV (17:51)
[2024-01-04 18:00] LABS: Procalcitonin 0.02 ng/mL (0-0.5)
[2024-01-04] MEDS: enoxaparin 60 mg/0.6 mL Syringe SUBCUT (18:08)
[2024-01-04] MEDS: nitroglycerin 1 gm/inch oint Pkt 0.5 INCH TOPICAL (18:09)
[2024-01-04] MEDS: carvedilol 3.125 mg Tablet 6.25 MG PO (20:02)
[2024-01-04] MEDS: atorvastatin 40 mg Tablet PO (20:02)
[2024-01-04] MEDS: aspirin 81 mg EC Tablet PO (20:03)
[2024-01-04] MEDS: cefTRIAXone 1,000 mg SDV 1000 MG IVP (20:03)
[2024-01-04] MEDS: pantoprazole 40 mg SDV IVP (20:05)
[2024-01-04] MEDS: azithromycin 500 MG in sodium chloride 0.9% 250 ML 250 MG IV (20:07)
--- NOTE | 2024-01-04 20:08 | ECG_ITS ---
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 Measurements Intervals [place] Rate: 73 P: 85 UT: 197 QRS: 67 QRSD: 89 T: 66 QT: 383 QTc: 423 Interpretive Statements SINUS RHYTHM Compared to ECG 01/04/2024 16:00:29 First degree AV block no longer present Myocardial infarct finding no longer present Electronically Signed On 01-04-2024 21:54:25 CDT by Les Ray M.D. [id number]
[2024-01-04] MEDS: budesonide 0.5 mg/2 mL Neb INHALATION (20:36)
[2024-01-05] VITALS (70 sets, daily range): BP systolic 104–170; BP diastolic 58–100; PULSE 56–94; RESP 0–27; TEMP 36.4–36.8; O2SAT 90–96
[2024-01-05 03:31] LABS: Basophils % 0.3 %; Eosinophils % 0.1 %; Hematocrit 44.2 % (37-53); Lymphocytes # 1.8 10^3/uL (0.8-4.8); Lymphocytes % 19.7 %; Mean Corpuscular HGB Conc 33.7 g/dL (30-55); Mean Corpuscular Hemoglobin 28.5 pg (27-33); Mean Corpuscular Volume 84.5 fl (82-101); Monocytes # 0.4 10^3/uL (0.2-0.9); Monocytes % 4.4 %; Neutrophils # 6.81 10^3/uL (1.8-7.7); Neutrophils % 74.8 %; Nucleated Red Blood Cells % 0 %; Platelet Count 266 10^3/cmm (157-399); Red Blood Count 5.23 10^6/uL (3.85-5.65); Red Cell Distribution Width 13.4 % (12.1-15.1)
[2024-01-05 03:43] LABS: Estmated Average Glucose 120; Hemoglobin A1C 5.8 % (4.0-6.0)
[2024-01-05 04:00] LABS: Alanine Aminotransferase 17 U/L (0-41); Albumin Level 4.3 g/dL (3.5-5.2); Alkaline Phosphatase 80 U/L (40-130); Anion Gap 18.3 (5-19); Aspartate Amino Transferase 25 U/L (0-40); Blood Urea Nitrogen 14 mg/dL (8-23); Calcium 9.2 mg/dL (8.5-10.5); Carbon Dioxide 22 mmol/L (22-29); Chloride 101 mmol/L (98-107); Creatinine Clr Calc Pharmacy 93.6383; Globulin 2.2 g/dL (1.3-4.6); Glomerular Filtration Rate 113.5 mL/min (90-130); Glucose 143 mg/dL (65-115); Magnesium 1.9 mg/dL (1.7-2.3); Osmolality Calculated 287 mOsm/kg (285-295); Phosphorus 2.9 mg/dL (2.5-4.5); Potassium 4.3 mmol/L (3.5-5.1); Sodium 137 mmol/L (136-145); Thyroid Stimulating Hormone 0.88 uIU/mL (0.27-4.20); Total Bilirubin 0.3 mg/dL (0.15-1.2); Total Protein 6.5 g/dL (6.6-8.7)
[2024-01-05 04:02] LABS: Chol HDL Ratio 4.26 mg/dL (1.0-5.00); Cholesterol 243 mg/dL (0-200); HDL Cholesterol 57 mg/dL (60-100); LDL Cholesterol Calculated 168 mg/dL (50-129); LDL HDL Ratio 2.95 RATIO (0.00-3.22); NT Pro B Type Natriuretic Pept 653 pg/mL (0-125); Triglycerides 90 mg/dL (0-150)
[2024-01-05] MEDS: methylPREDNISolone sod succ 40 mg/mL INJ IVP ×3 (05:31→21:31)
[2024-01-05] MEDS: enoxaparin 100 mg/mL Syringe 60 MG SUBCUT (05:33)
--- NOTE | 2024-01-05 05:51 | USCV_ITS ---
Beto Orourke Age: 63 Gender: M : 1960 Exam Date: 01/05/2024 06:35 Ordering Phys: Fernando Fox MD Technologist: Efrain Lloyd [place] [facility] [place]: sob BP: 128 / 84 HR: 57 Rhythm: Sinus Technical Quality: Adequate MEASUREMENTS (Male / Female) Normal Values 2D ECHO LV Diastolic Diameter PLAX 4.3 cm 4.2 - 5.9 / 3.9 - 5.3 cm IVS Diastolic Thickness 0.8 cm 0.6 - 1.0 / 0.6 - 0.9 cm IVS Systolic Thickness 1.1 cm LVPW Diastolic Thickness 0.9 cm 0.6 - 1.0 / 0.6 - 0.9 cm LVPW Systolic Thickness 1.6 cm LVOT Diameter 2.1 cm LV Ejection Fraction 2D Teich 74.7 % LV Ejection Fraction MOD 4C 52.5 % LA Diameter 3.0 cm Aorta at Sinotubular Diameter 2.3 cm IVC Diameter 1.6 cm M-MODE LA Ao Ratio MM 0.9 AV Cusp Separation MM 1.8 cm DOPPLER AV Peak Velocity 110.0 cm/s LVOT Peak Velocity 76.0 cm/s AV Area Cont Eq vti 2.3 cm squared AV Area Cont Eq pk 2.3 cm squared MV Peak Velocity 59.0 cm/s MV Area PHT 2.5 cm squared Mitral E to A Ratio 0.7 TR Peak Velocity 135.0 cm/s TR Peak Gradient 7.3 mmHg TR Mean Velocity 106.0 cm/s TR Mean Gradient 4.9 mmHg TR Velocity Time Integral 35.2 cm PV Peak Velocity 93.0 cm/s RV Ejection Time 0.3 s FINDINGS Left Ventricle Left ventricle is normal in size. LV systolic function is normal with EF of 50 to 55%. No regional wall motion abnormalities are seen. Right Ventricle Normal in size and function Right Atrium Normal in size Left Atrium Normal in size Mitral Valve Structurally normal mitral valve.Trace mitral regurgitation. Aortic Valve Aortic valve is thickened. No signifiicant stenosis or regurgitation. Tricuspid Valve Mild tricuspid regurgitation. Insufficient TR jet to calculate RVSP. Pulmonic Valve Not well-visualized Pericardium Normal Aorta Normal in size IVC Appears to be normal CONCLUSIONS LV systolic function is normal with EF of 50-55% Trace mitral regurgitation Mild tricuspid regurgitation Compared to prior echocardiogram from 2021, no significant changes are seen. Les Ray MD (Electronically Signed) Final Date: 05 January 2024 11:36 S
[2024-01-05] MEDS: budesonide 0.5 mg/2 mL Neb INHALATION ×2 (07:43→19:43)
[2024-01-05] MEDS: ipratropium-albuterol 3 mL Neb INHALATION ×4 (07:43→19:43)
[2024-01-05] MEDS: carvedilol 3.125 mg Tablet 6.25 MG PO ×2 (08:13→17:16)
[2024-01-05] MEDS: aspirin 81 mg EC Tablet PO (08:13)
[2024-01-05] MEDS: amlodipine 10 mg Tablet PO (09:27)
--- NOTE | 2024-01-05 10:51 | P.CONIM_ITS ---
Providers/Reason For Consult 2 Consulting Physician/Specialty*: Les Ray MD/ Cardiology Reason for Consult*: Worsening angina Requesting Physician: Dr Larsen Attending Physician: Fernando Fox MD Primary Care Provider: Laureen Hirsch History of Present Illness History of Present Illness Beto Orourke is a 63 year old male with past medical history of coronary artery disease with prior stents, renal artery stenosis with stent and renal artery presented to hospital with chest pain and shortness of breath according to patient it has been worsening over several days. Mild elevation in troponin was noted. EKG shows sinus rhythm with non specific ST changes. Review of Systems 2 Const: Denies: fever(s) or chills Card: Reports: chest pain Resp: Reports: dyspnea, productive cough, wheezing and chest congestion GI: Denies: abdominal pain : Denies: dysuria, urinary frequency or urinary urgency Musc: Denies: neck pain or back pain Skin/Breast: Denies: rash Medications/Allergies Home Medications Medication Instructions Recorded Confirmed Last Taken Type albuterol sulfate 90 mcg/actuation 2 puff inhalation QID PRN 09/01/21 01/04/24 Unknown History aerosol inhaler Shortness Of Breath aspirin 81 mg tablet,delayed 81 mg PO DAILY #90 tabs 09/11/21 01/04/24 10/07/22 10:30 Rx release nitroglycerin 0.4 mg sublingual 0.4 mg sublingual Q5M PRN Chest 09/11/21 01/04/24 Unknown Rx tablet Pain #25 tabs carvedilol 3.125 mg tablet 6.25 mg (2 x 3.125 mg) PO BID #180 08/19/23 01/04/24 Unknown Rx tabs tiotropium bromide 2.5 2 puff inhalation DAILY 01/04/24 01/04/24 Unknown History mcg/actuation mist for inhalation (Spiriva Respimat) Allergies Allergy/AdvReac Type Severity Reaction Status Date / Time naproxen [From Aleve] Allergy UNKNOWN Verified 11/21/23 11:00 Current Medications Generic Name Dose Route Start Last Admin Trade Name Freq PRN Reason Stop Dose Admin Albuterol/Ipratropium 3 ml 01/04/24 20:00 01/05/24 07:43 Ipratropium-Albuterol 3 Ml Neb INHALATION 3 ml QID.RESPIRATORY SUSANA Administration Amlodipine Besylate 10 mg 01/05/24 09:00 01/05/24 09:27 Amlodipine 10 Mg Tablet PO 10 mg DAILY SUSANA Administration Aspirin 81 mg 01/05/24 09:00 01/05/24 08:13 Aspirin 81 Mg Ec Tablet PO 81 mg DAILY SUSANA Administration Atorvastatin Calcium 40 mg 01/04/24 21:00 01/04/24 20:02 Atorvastatin 40 Mg Tablet PO 40 mg BEDTIME SUSANA Administration Budesonide 0.5 mg 01/04/24 20:00 01/05/24 07:43 Budesonide 0.5 Mg/2 Ml Neb INHALATION 0.5 mg BID.RESPIRATORY SUSANA Administration Carvedilol 6.25 mg 01/04/24 18:45 01/05/24 08:13 Carvedilol 3.125 Mg Tablet PO 6.25 mg BID SUSANA Administration Ceftriaxone Sodium 1,000 mg 01/04/24 18:45 01/04/24 20:03 Ceftriaxone 1,000 Mg Sdv IVP 1,000 mg Q24H SUSANA Administration Protocol Azithromycin 500 mg/ Sodium 250 mls @ 250 mls/hr 01/04/24 18:45 01/04/24 21:22 Chloride IV Infused Q24H SUSANA Infusion Protocol Methylprednisolone Sodium Succinate 40 mg 01/05/24 06:00 01/05/24 05:31 Methylprednisolone Sod Succ 40 Mg/Ml Inj IVP 40 mg Q8H SUSANA Administration Pantoprazole Sodium 40 mg 01/04/24 18:45 01/04/24 20:05 Pantoprazole 40 Mg Sdv IVP 40 mg Q24H SUSANA Administration PFSH Acute 2 PFSH: Medical History History of stent insertion of renal artery Renal artery stenosis History of COPD No pertinent family history COPD (chronic obstructive pulmonary disease) Surgical History S/P right coronary artery (RCA) stent placement Family History Father CAD (coronary artery disease) Diabetes Lung disease Stroke Mother CAD (coronary artery disease) Diabetes Grandfather CAD (coronary artery disease) Grandmother CAD (coronary artery disease) Brother Lung disease Denies family history of Clotting disorder Dementia Suicide Anesthesia complication Bleeding disorder Cancer Social History Smoking and tobacco/nicotine status: former use of tobacco/nicotine Alcohol intake: never Substance/Drug Use: never Vitals/I&O/Wt Last Vital Signs Temp 98.0 F 01/05/24 08:00 Pulse 66 01/05/24 08:00 Resp 17 01/05/24 08:00 BP 170/93 01/05/24 08:00 Pulse Ox 94 01/05/24 08:00 O2 Del Method Room Air 01/05/24 08:00 01/04/24 01/05/24 01/05/24 22:59 06:59 14:59 Intake Total 250 / 250 240 / 490 360 / 360 Output Total 350 / 350 300 / 300 Balance 250 / 250 -110 / 140 60 / 60 Weight last 48 hrs Weight 141 lb Weight 136 lb 14.4 oz Weight 135 lb Physical Exam 2 Narrative: GENERAL: Patient is alert, awake and oriented x3. [] NECK: No jugular vein distension. [] HEENT: No cyanosis. No icterus. No pallor. [] HEART: Regular S1 and S2. No murmur, rub or gallop. [] LUNGS: Diminished air entry. CENTRAL NERVOUS SYSTEM: Grossly nonfocal. [] EXTREMITIES: Lower extremities with no edema bilaterally Data 01/05/24 03:15 01/05/24 03:15 A&P Assessment and plan (1) Chest pain: (2) Dyslipidemia: (3) Renal artery stenosis: (4) COPD exacerbation: Plan Patient has presented with chest pain symptoms associated with shortness of breath. Also had wheezing at presentation which has improved now with COPD therapy. Given his multiple risk factors and prior CAD history and typical chest pain symptoms that had been worsening for last several days, we will proceed with coronary angiogram with possible PCI. Presentation is concerning for unstable angina. Continue aspirin. NPO ECHO ordered Thank you for involving us with care of this patient. We will continue to follow. Please call with questions. Consult Attestations 2 Medical Necessity Statement: Care expected to cross 2 midnights. Coding Level of Care Code Acute Code for [facility] Diagnoses Chest pain R07.9 Dyslipidemia E78.5 Renal artery stenosis I70.1 COPD exacerbation J44.1
[2024-01-05] MEDS: sodium chloride 0.9% 1,000 ML 50 ML IV (12:23)
[2024-01-05] MEDS: diphenhydrAMINE 50 mg Capsule PO (12:23)
[2024-01-05 12:38] LABS: Adenovirus Not Detected (NOT DETECT); Chlamydia Pneumoniae Not Detected (NOT DETECT); Coronavirus 229E,HKU1,NL63,OC4 Not Detected (NOT DETECT); Human Metapneumovirus Not Detected (NOT DETECT); Human Rhinovirus/Enterovirus Not Detected (NOT DETECT); Influenza A Not Detected (NOT DETECT); Influenza A H1 Not Detected (NOT DETECT); Influenza A H1-2009 Not Detected (NOT DETECT); Influenza A H3 Not Detected (NOT DETECT); Influenza B Not Detected (NOT DETECT); Mycoplasma Pneumoniae Not Detected (NOT DETECT); Parainfluenza Virus Type 1 Not Detected (NOT DETECT); Parainfluenza Virus Type 2 Not Detected (NOT DETECT); Parainfluenza Virus Type 3 Not Detected (NOT DETECT); Parainfluenza Virus Type 4 Not Detected (NOT DETECT); Respiratory Syncytial Virus A Not Detected (NOT DETECT); Respiratory Syncytial Virus B Not Detected (NOT DETECT); SARS-COV-2 Not Detected (NOT DETECT)
--- NOTE | 2024-01-05 14:03 | XACV_ITS ---
Exam Room: [facility] Ht: 183 cm Wt: 64 kg BSA: 1.79 m2 Gender: Male : 1960 Any Known Allergies: Other Exam Priority: Routine Procedure(s): Procedure Description: Diagnostic procedure Procedure Description: Left Heart Catheterization Procedure Description: Left ventriculography Procedure Description: Coronary Angiography Diagnostic Cath Status: Urgent Diagnostic Findings * INDICATION: Worsening/unstable angina. * No significant disease noted in the Left Main, Left Anterior Descending, Right, or Circumflex coronary arteries. RCA has patent prior stent.. * Coronary angiography shows right dominance. Conclusions 1. No significant disease noted in the Left Main, Left Anterior Descending, Right, or Circumflex coronary arteries. RCA has patent prior stent.. 2. Normal left ventricular systolic function. Ejection fraction of 60%. Recommendations * Aggressive risk factor modification. * Outpatient cardiology follow up in 2 weeks. Interventional RX Recommendation: medical therapy and/or counseling Diagnostic RX Recommendation: medical therapy and/or counseling Anticoagulation: Heparin Ventriculography Ejection Fraction: 60.0 % Pressures Phase:Rest AO : 113 / 72 ( 88 ) @ 4:08:00 PM 101 / 63 ( 81 ) @ 4:15:00 PM 99 / 62 ( 79 ) @ 4:15:00 PM LV : 121 / -11 / 10 @ 4:14:00 PM 117 / -7 / 13 @ 4:15:00 PM 119 / -7 / 13 @ 4:15:00 PM Valves Phase:DefaultPhase AV : 18.0 @ 3:22:53 PM AV Mean Gradient: 14.0 @ 3:22:53 PM 14.0 @ 3:22:53 PM Clinical Evaluation EBL: 5mL-10mL Procedural Details Procedure Consent Obtained. Admit Source: In Patient. Pre-Procedure Time Out. Identified patient by full name and date of as verbalized by the patient/guarantor. Does the consent match the physician's order: Yes. Accurate & Complete Informed Consent: Yes. Inpatient/Outpatient History & Physical on Chart: Yes. If H&P is completed, is and addenduem needed: No; If yes, is the addendum complete: N/A. Visualize and Verify Site with Patient/Guarantor: N/A. Relevant Radiology Images available: N/A. The risks, benefits, and alternatives of sedation and/or procedure were discussed by physician. The patient agrees to continue. Procedure started. [facility] Clinical Fraility Score: 3: Managing Well. Mental Health Consultant Indications: Worsening Angina. Chest Pain Symptom Assessment: Typical Angina Symptoms. Correct patient, site and procedure confirmed by cath team. Current diagnosis: Unstable angina. PERRLA. 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 Lungs clear x 5 lobes. IV Site on Arrival: 18 gauge in the right anticubital. IV Fluids: 0.9% NaCl at 75ml/hr. 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 Pre Procedural Pulses: bilateral radial was 3+. Pre Procedural Pulses: bilateral posterior tibial was 3+. Pre Procedural Pulses: bilateral dorsalis pedis was 3+. Oxygen started at 2liters/min via nasal canula. right radial was prepped with chloroprep then draped in the usual sterile fashion. right groin was prepped with chloroprep then draped in the usual sterile fashion. Baseline sample Acquired. HR: 76 BPM. Physician notified. Physician arrived. Physician scrubbed in. Immediate Pre-Procedure Time Out. Correct Patient: Yes; Correct Procedure: Yes; Correct Site: Yes; Correct Patient Position: Yes; Correct Supplies: Yes; Dried Flammable Prep: Yes; Blood Products Available: No;. Lidocaine 1% infiltrated to the right radial. Arterial access obtained. A 5 togolese TIG catheter in over wire. Multiple views taken of left coronary artery. Catheter redirected to the RCA. Multiple views taken of right coronary artery. Catheter removed over the exchange wire. A 5 togolese Angled Pig catheter in over wire. EDP Sample taken: LV 121/-12,10; HR: 80 BPM; SpO2: 94%. LV gram performed in [place]BR[place] @ 10 mL/second for a total of 30 mL. EDP Sample taken: LV 117/-8,13; HR: 79 BPM; SpO2: 94%. Pullback taken: LV 119/-8,13; AO 101/63(81); Mean: 14mmHg, Peak to Peak: 18mmHg, SEP: 9sec/min; HR: 78 BPM; SpO2: 94%. Catheter removed over the exchange wire. Wire out. Post Procedure: Pulses reassessed and unchanged. PERRLA. 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 No VTE prophylaxis required. Medication's Wasted: Lidocaine 1% = 18 mL. Medication's Wasted: Nitro = 49.8 mg. Medication's Wasted: Heparin = 1000 units. Medication's Wasted: Other = Versed 1 mg, Fentanyl 50mcg. Total IV fluids: 50 mL. Post-op diagnosis: Non-obstructive CAD. Complications: None. Estimated blood loss: 5mL-10mL. Responsiveness - Normal response to verbal stimuli; alert and oriented, PERRLA. Airway - Unaffected, no intervention required; spontaneous ventilation. Circulation: W/N/L, pulses unchanged. Nausea/Vomiting: N/A. A TR Band was successful obtaining hemostatsis at the Right Radial artery insertion site. Procedure completed. Patient transferred by wheelchair to ICU. Vital chart was stopped. Access Site Site: Right Radial artery Sheath Size: 6 Fr Hemostasis Method: TR Band Hemostasis Success: Successful Procedure Medications Start: 2:56 PM Stop: 2:56 PM Medication: Versed Amount: 1 mg Route: I.V. Start: 2:56 PM Stop: 2:56 PM Medication: Fentanyl Amount: 50 mcg Route: I.V. Start: 3:03 PM Stop: 3:03 PM Medication: Versed Amount: 1 mg Route: I.V. Start: 3:03 PM Stop: 3:03 PM Medication: Fentanyl Amount: 50 mcg Route: I.V. Start: 3:06 PM Stop: 3:06 PM Medication: Nitrogylcerin Amount: 200 mcg Route: I.A. Start: 3:07 PM Stop: 3:07 PM Medication: Heparin Amount: 5000 units Route: I.V. Start: 3:09 PM Stop: 3:09 PM Medication: Versed Amount: 1 mg Route: I.V. Start: 3:09 PM Stop: 3:09 PM Medication: Fentanyl Amount: 50 mcg Route: I.V. I, the attending physician, have reviewed and verified all procedure medications. Yes, all medications given per verbal order History/Risk Factors Hypertension: Yes Dyslipidemia: Yes Peripheral Arterial Disease (PAD): No Myocardial Infarction (MN): No Obesity: No Renal Disease: No Tobacco Use: Former Prior Interventions PCI: Yes CABG: No Valve Surgery: No Date of PCI: 09/20/2021 Report Signatures Finalized by Les Ray MD on 01/05/2024 03:33 PM
--- NOTE | 2024-01-05 15:00 | W.PM.OPSUD ---
Surgery/Procedure H&P Update DATE OF PROCEDURE: January 05, 2024 DATE H&P PERFORMED: 01/05/24 H&P UPDATE INFORMATION: I have reviewed H&P completed within last 30 days, I have examined patient prior to procedure and No changes to prior documentation PREOP DIAGNOSIS: Worsening angina PRIMARY INDICATION FOR PROCEDURE: Worsening angina PLANNED PROCEDURE: Left heart cath with possible percutaneous coronary intervention PATIENT REASSESSED PRIOR TO SEDATION, WITH NO CHANGE NOTED: Yes PHYSICAL EXAM: alert, oriented x 3, clear to auscultation bilaterally and regular rate & rhythm AIRWAY EVAL/ANESTHESIA PLAN: normal airway, ASA III, Local Anesthesia, Risks, benefits & alternatives of sedation and/or procedure discussed and Patient agrees to continue as planned ADDITIONAL INFORMATION: Moderate sedation
--- NOTE | 2024-01-05 15:38 | P.PN_ITS ---
Subjective 2 Subjective: Patient was seen this morning, denies any fevers, chills, no cough, denies any lightheadedness, no dizziness, denies any chest pain, -Spoke to cardiology, plan on coronary a ngiography this afternoon Vitals/I&O/Wt Last Vital Signs Temp 97.5 F L 01/05/24 12:00 Pulse 73 01/05/24 12:00 Resp 16 01/05/24 12:00 BP 134/74 01/05/24 12:00 Pulse Ox 92 01/05/24 12:00 O2 Del Method Nasal Cannula 01/05/24 12:00 01/05/24 01/05/24 01/05/24 06:59 14:59 22:59 Intake Total 240 / 490 360 / 360 Output Total 350 / 350 650 / 650 Balance -110 / 140 -290 / -290 Weight last 48 hrs Weight 63.957 kg Weight 62.097 kg Weight 61.235 kg Physical Exam 2 Const: COMMON NORMALS: no acute distress and patient oriented x3 Resp: COMMON NORMALS: normal respiratory effort, No retractions and No use of accessory muscles AUSCULTATION: crackles and wheezes Cardio: COMMON NORMALS: regular rate, regular rhythm, S1 normal heart sound present and S2 normal heart sound present RATE: regular rate RHYTHM: r egular rhythm HEART SOUNDS: S1 normal heart sound present and S2 normal heart sound present GI: COMMON NORMALS: Normal to inspection, nondistended, normoactive bowel sounds present and non-tender Extremity: COMMON NORMALS: no pedal edema Neuro: COMMON NORMALS: patient oriented x3 Psych: COMMON NORMALS: mental status grossly normal Data 01/05/24 03:15 01/05/24 03:15 A&P Assessment and plan (1) Chest pain: (2) COPD exacerbation: Plan Chest pain ? Cath in October 2022 Conclusions 1. No significant disease noted in the Left Main, Left Anterior Descending, Right, or Circumflex coronary arteries. 2. Normal left ventricular systolic function. Ejection fraction of 50%. ? Serial EKGs, serial troponins, telemetry monitoring ? Aspirin, statin, Coreg ? 120-minute troponin 19.23, treat as NSTEMI, -Plan on cardiac cath today ? Cardiac echo CONCLUSIONS LV systolic function is normal with EF of 50-55% Trace mitral regurgitation Mild tricuspid regurgitation Compared to prior echocardiogram from 2021, no significant changes are seen. COPD exacerbation - CT/CT angio chest PE protcl [id number] IMPRESSION: 1. No pulmonary embolism. 2. No acute infiltrates. ? DuoNeb -Budesonide ? Rocephin ? Azithromycin ? Solu-Medrol ? Monitor respiratory status closely ? Full code ? Lovenox for DVT prophylaxis Hypertension, continue home meds Plan for today cardiac cath, monitored thereafter, continue steroids, antibiotics, for COPD exacerbation, wheezing Attestations 2 Medical Necessity Statement*: Patient requires hospitalization for chest pain, COPD exacerbation Diagnoses Chest pain R07.9 COPD exacerbation J44.1
--- NOTE | 2024-01-05 15:47 | PC.NURSE ---
1540 Recieved patient via Wheelchair from cathlab, awake and alert talking about what they found during cath. Connected to monitor. Has TR band on right radial, told it has 15ml air in it. No bleeding or edema noted. No c/o pain, just hungry and thirsty. Tolerated drink of water well. [place] given, ate well, no c/o's. at bedside.
[2024-01-05] MEDS: sodium chloride 0.9% 1,000 ML 100 ML IV (16:11)
[2024-01-05] MEDS: pantoprazole 40 mg SDV IVP (17:53)
[2024-01-05] MEDS: cefTRIAXone 1,000 mg SDV 1000 MG IVP (17:56)
[2024-01-05] MEDS: azithromycin 500 MG in sodium chloride 0.9% 250 ML 250 MG IV (18:00)
[2024-01-05] MEDS: water for injection-sterile 10 ML 1000 ML (18:06)
--- NOTE | 2024-01-05 18:23 | PC.NURSE ---
TR band on right radial intact with no drainage noted. 1615 Removed 2ml air from TR band, no drainage, edema, or firmness noted around it, pulse present distal. 1635 Removed 2ml air from TR band, no drainage, edema, or firmness noted around it, pulse present distal. 1705 Removed 2ml air from TR band, no drainage, edema, or firmness noted around it, pulse present distal. 1820 Removed 2ml air from TR band, no drainage, edema, or firmness noted around it, pulse present distal.
--- NOTE | 2024-01-05 19:23 | PC.NURSE ---
At start of this nurses shift patients TR band had 8 mls of air left in it. Resumed documentation in post cardiac cath flow sheet to reflect current status.
--- NOTE | 2024-01-05 19:54 | PC.NURSE ---
TR Band: Assumed care of patient at 1900. TR band in place with 8 mls of air remaining. Removed 2 mls each time. TR band removed at 194 with no complications. No hematoma, radial and ulnar pulses present. A 2x2 gauze an tegaderm applied over insertion site.
[2024-01-05] MEDS: atorvastatin 40 mg Tablet PO (20:25)
[2024-01-06] VITALS (18 sets, daily range): BP systolic 98–150; BP diastolic 57–92; PULSE 61–92; RESP 16–23; TEMP 36.7–36.8; O2SAT 90–94; BMI 19.0
[2024-01-06] MEDS: sodium chloride 0.9% 1,000 ML 100 ML IV (01:01)
[2024-01-06 04:58] LABS: Basophils % 0.2 %; Hematocrit 43.8 % (37-53); Lymphocytes # 1.9 10^3/uL (0.8-4.8); Lymphocytes % 7.8 %; Mean Corpuscular HGB Conc 33.3 g/dL (30-55); Mean Corpuscular Hemoglobin 28.3 pg (27-33); Mean Platelet Volume 10.3 fL (7.4-10.4); Monocytes # 0.6 10^3/uL (0.2-0.9); Monocytes % 2.4 %; Neutrophils # 21.37 10^3/uL (1.8-7.7); Neutrophils % 88.2 %; Nucleated Red Blood Cells % 0 %; Platelet Count 277 10^3/cmm (157-399); Red Blood Count 5.15 10^6/uL (3.85-5.65); Red Cell Distribution Width 13.6 % (12.1-15.1); White Blood Count 24.21 10^3/uL (3.29-11.43)
[2024-01-06 05:19] LABS: Alanine Aminotransferase 24 U/L (0-41); Alkaline Phosphatase 74 U/L (40-130); Anion Gap 15.6 (5-19); Aspartate Amino Transferase 26 U/L (0-40); Blood Urea Nitrogen 16 mg/dL (8-23); Calcium 8.9 mg/dL (8.5-10.5); Carbon Dioxide 23 mmol/L (22-29); Chloride 102 mmol/L (98-107); Creatinine Clr Calc Pharmacy 84.3877; Globulin 2.2 g/dL (1.3-4.6); Glomerular Filtration Rate 97.3 mL/min (90-130); Glucose 143 mg/dL (65-115); Magnesium 1.9 mg/dL (1.7-2.3); Osmolality Calculated 286 mOsm/kg (285-295); Phosphorus 3.6 mg/dL (2.5-4.5); Potassium 4.6 mmol/L (3.5-5.1); Sodium 136 mmol/L (136-145); Total Bilirubin 0.3 mg/dL (0.15-1.2); Total Protein 6.2 g/dL (6.6-8.7)
[2024-01-06] MEDS: enoxaparin 40 mg/0.4 mL Syringe SUBCUT (06:06)
[2024-01-06] MEDS: methylPREDNISolone sod succ 40 mg/mL INJ IVP (06:06)
[2024-01-06] MEDS: ipratropium-albuterol 3 mL Neb INHALATION (08:01)
[2024-01-06] MEDS: budesonide 0.5 mg/2 mL Neb INHALATION (08:01)
--- NOTE | 2024-01-06 08:37 | P.PN_ITS ---
Subjective 2 Subjective: Patient is doing well. no chest pain. Vitals/I&O/Wt Last Vital Signs Temp 98.3 F 01/06/24 07:58 Pulse 88 01/06/24 08:00 Resp 18 01/06/24 08:00 BP 150/85 01/06/24 07:58 Pulse Ox 94 01/06/24 08:00 O2 Del Method Room Air 01/06/24 08:00 O2 Flow Rate 7 01/06/24 02:00 01/05/24 01/06/24 01/06/24 22:59 06:59 14:59 Intake Total 980 / 1340 1040 / 2380 Output Total 1325 / 1975 300 / 2275 375 / 375 Balance -345 / -635 740 / 105 -375 / -375 Weight last 48 hrs Weight 139 lb 15.896 oz Weight 141 lb Weight 136 lb 14.4 oz Weight 135 lb Physical Exam 2 Narrative: GENERAL: Patient is alert, awake and oriented x3. [] NECK: No jugular vein distension. [] HEENT: No cyanosis. No icterus. No pallor. [] HEART: Regular S1 and S2. No murmur, rub or gallop. [] LUNGS: Diminished air entry. CENTRAL NERVOUS SYSTEM: Grossly nonfocal. [] EXTREMITIES: Lower extremities with no edema bilaterally Data 01/06/24 04:32 01/06/24 04:32 A&P Assessment and plan (1) Chest pain: (2) Dyslipidemia: (3) Renal artery stenosis: (4) COPD exacerbation: Plan Patient's coronary angiogram showed patent prior RCA stent and no significant CAD. Continue aggressive medical therapy aspirin and Coreg. Start statin therapy Access site is normal. Thank you for involving us with care of this patient. Please call with questions. Attestations 2 Medical Necessity Statement*: Care expected to cross 2 midnights. Coding Level of Care Code Acute Code for [facility] Diagnoses Chest pain R07.9 Dyslipidemia E78.5 Renal artery stenosis I70.1 COPD exacerbation J44.1
[2024-01-06] MEDS: carvedilol 3.125 mg Tablet 6.25 MG PO (08:43)
[2024-01-06] MEDS: aspirin 81 mg EC Tablet PO (08:43)
[2024-01-06] MEDS: amlodipine 10 mg Tablet PO (08:43)
--- NOTE | 2024-01-06 10:44 | PM.DCS ---
Discharge Providers Date of Admission: 01/04/24 17:16 Date of Discharge: January 06, 2024 Attending Provider at Admission: Fernando Fox MD Attending Provider at Discharge: Fernando Fox MD Primary Care Provider: Laureen Hirsch Diagnoses at Discharge Discharge Diagnosis (1) Chest pain: Status: Acute (2) Dyslipidemia: Status: Acute (3) Renal artery stenosis: Status: Acute (4) COPD exacerbation: Status: Acute Reason for Visit Reason for Visit: Sob, Chest Pain, dizzy, fell Hospital Course Hospital Course 63-year-old male who presented with chief complaint of chest pain. His chest pain more deemed typical, cardiology was consulted for coronary angiogram. Coronary angiogram did not reveal any obstructive coronary disease, CTA chest was negative for pulmonary embolism, patient does not smoke anymore, has history of COPD only uses Spiriva, does not use oxygen at baseline, his wheezing improved with use of steroids. He is being discharged with stable hemodynamics. I will add Advair on top of Spiriva. He takes albuterol on as-needed basis. Echo showed preserved ejection fraction, no signs of contrast-induced nephropathy. Physical Exam Narrative: Awake and alert Protein calorie malnourishment sarcopenia GCS 15 No active wheezing Hemodynamic stable Currently on room air Discharge Data Studies Completed and Pending Completed Studies During Hospitalization Category Date Time Status CT angio chest PE protcl [id number] Stat Cat Scan 01/04/24 17:[address] head wo con* [id number] Stat Cat Scan 01/04/24 14:08 Completed [employer] request for service Routine Exams 01/05/24 14:03 Completed XR chest 1V portable [id number] Stat Exams 01/04/24 14:08 Completed CV. echo complete* [id number] Routine Ultrasound 01/05/24 05:51 Completed Pending at discharge Category Date Time Status Complete Blood Count w/Auto AM LABS Lab 01/07/24 04:00 Ordered Comprehensive Metabolic Panel AM LABS Lab 01/07/24 04:00 Ordered Magnesium AM LABS Lab 01/07/24 04:00 Ordered Phosphorus AM LABS Lab 01/07/24 04:00 Ordered Radiology Impressions Chest X-Ray 01/04/24 14:08 IMPRESSION: No acute cardiopulmonary process. Head CT 01/04/24 14:08 IMPRESSION: No intracranial posttraumatic changes. Chest CTA 01/04/24 17:31 IMPRESSION: 1. No pulmonary embolism. 2. No acute infiltrates. COMMENTS: The presence of pulmonary emphysema on CT is an independent risk factor for lung cancer. In the absence of a history or active diagnosis of lung cancer, it is recommended that this patient with emphysema be evaluated for enrollment in a low dose CT lung cancer screening program. Laboratory Results WBC 24.21 10^3/uL (3.29-11.43) H 01/06/24 04:32 RBC 5.15 10^6/uL (3.85-5.65) 01/06/24 04:32 Hgb 14.60 g/dL (11.27-16.99) 01/06/24 04:32 Hct 43.8 % (37-53) 01/06/24 04:32 MCV 85.0 fl (82-101) 01/06/24 04:32 MCH 28.3 pg (27-33) 01/06/24 04:32 MCHC 33.3 g/dL (30-55) 01/06/24 04:32 RDW 13.6 % (12.1-15.1) 01/06/24 04:32 Plt Count 277 10^3/cmm (157-399) 01/06/24 04:32 MPV 10.3 fL (7.4-10.4) 01/06/24 04:32 Neut % (Auto) 88.2 % 01/06/24 04:32 Lymph % (Auto) 7.8 % 01/06/24 04:32 [place] % (Auto) 2.4 % 01/06/24 04:32 Eos % (Auto) 0.0 % 01/06/24 04:32 Baso % (Auto) 0.2 % 01/06/24 04:32 Neut # (Auto) 21.37 10^3/uL (1.8-7.7) H 01/06/24 04:32 Lymph # (Auto) 1.9 10^3/uL (0.8-4.8) 01/06/24 04:32 [place] # (Auto) 0.6 10^3/uL (0.2-0.9) 01/06/24 04:32 Eos # (Auto) 0.0 10^3/uL (0.0-0.8) 01/06/24 04:32 Baso # (Auto) 0.0 10^3/uL (0.0-0.1) 01/06/24 04:32 Nucleated RBC % (auto) 0 % 01/06/24 04:32 Nucleated RBCs # 0.0 /100WBC 01/06/24 04:32 Sodium 136 mmol/L (136-145) 01/06/24 04:32 Potassium 4.6 mmol/L (3.5-5.1) 01/06/24 04:32 Chloride 102 mmol/L (98-107) 01/06/24 04:32 Carbon Dioxide 23 mmol/L (22-29) 01/06/24 04:32 Anion Gap 15.6 (5-19) 01/06/24 04:32 BUN 16 mg/dL (8-23) 01/06/24 04:32 Creatinine 0.8 mg/dL (0.7-1.2) 01/06/24 04:32 GFR Calculation 97.3 mL/min (90-130) 01/06/24 04:32 Glucose 143 mg/dL (65-115) H 01/06/24 04:32 Estimat Average Glucose 120 01/05/24 03:15 Hemoglobin A1c 5.8 % (4.0-6.0) 01/05/24 03:15 Calculated Osmolality 286 mOsm/kg (285-295) 01/06/24 04:32 Calcium 8.9 mg/dL (8.5-10.5) 01/06/24 04:32 Phosphorus 3.6 mg/dL (2.5-4.5) 01/06/24 04:32 Magnesium 1.9 mg/dL (1.7-2.3) 01/06/24 04:32 Total Bilirubin 0.3 mg/dL (0.15-1.2) 01/06/24 04:32 AST 26 U/L (0-40) 01/06/24 04:32 ALT 24 U/L (0-41) 01/06/24 04:32 Alkaline Phosphatase 74 U/L (40-130) 01/06/24 04:32 Troponin T Baseline 14 ng/L (0-15) 01/04/24 14:40 Troponin T 120 Minute 19.23 ng/L (0-15) H 01/04/24 16:35 Delta Troponin T 5.23 ABS# (0-10) 01/04/24 16:35 Troponin T Hi Sens 6Hr 25.40 ng/L (0-15) H 01/04/24 20:40 Troponin T Hi Sens 6Hr Delta 11.40 ng/L (0-12) 01/04/24 20:40 C-Reactive Protein 3.0 mg/L (0.0-4.9) 01/04/24 16:35 NT-Pro-B Natriuret Pep 653 pg/mL (0-125) H 01/05/24 03:15 Total Protein 6.2 g/dL (6.6-8.7) L 01/06/24 04:32 Albumin 4.0 g/dL (3.5-5.2) 01/06/24 04:32 Globulin 2.2 g/dL (1.3-4.6) 01/06/24 04:32 Triglycerides 90 mg/dL (0-150) 01/05/24 03:15 Cholesterol 243 mg/dL (0-200) H 01/05/24 03:15 LDL Cholesterol, Calc 168 mg/dL (50-129) H 01/05/24 03:15 HDL Cholesterol 57 mg/dL (60-100) L 01/05/24 03:15 LDL/HDL Ratio 2.95 RATIO (0.00-3.22) 01/05/24 03:15 Cholesterol/HDL Ratio 4.26 mg/dL (1.0-5.00) 01/05/24 03:15 Procalcitonin 0.02 ng/mL (0-0.5) 01/04/24 16:35 TSH 0.88 uIU/mL (0.27-4.20) 01/05/24 03:15 Urine Color Yellow (Yellow) 01/04/24 16:07 Urine Appearance Clear (CLEAR) 01/04/24 16:07 Urine pH 7.5 (5-7) 01/04/24 16:07 Ur Specific [place] 1.010 (1.005-1.030) 01/04/24 16:07 Urine Protein Negative (Negative) 01/04/24 16:07 Urine Glucose (UA) Negative (Normal) 01/04/24 16:07 Urine Ketones Negative (Negative) 01/04/24 16:07 Urine Blood Negative (Negative) 01/04/24 16:07 Urine Nitrate Negative (Negative) 01/04/24 16:07 Urine Bilirubin Negative (Negative) 01/04/24 16:07 Urine Urobilinogen 0.2 mg/dL (Negative) 01/04/24 16:07 Ur Leukocyte Esterase Negative (Negative) 01/04/24 16:07 Urine RBC 0-2 /hpf (0-2) 01/04/24 16:07 Urine WBC 0-5 /hpf (0-5) 01/04/24 16:07 Ur Squamous Epith Cells 0-5 /hpf (0-5) 01/04/24 16:07 Amorphous Sediment Not Reportable 01/04/24 16:07 Urine Bacteria None seen /hpf (NONE) 01/04/24 16:07 Hyaline Casts 0-4 /lpf H 01/04/24 16:07 Adenovirus (PCR) Not detected (NOT DETECT) 01/05/24 10:30 C. pneumoniae DNA (PCR) Not detected (NOT DETECT) 01/05/24 10:30 Coronavirus 229E (PCR) Not detected (NOT DETECT) 01/05/24 10:30 Human Metapneumovir PCR Not detected (NOT DETECT) 01/05/24 10:30 Influenza A (H1) PCR Not detected (NOT DETECT) 01/05/24 10:30 Influ A (H1/09) PCR Not detected (NOT DETECT) 01/05/24 10:30 Influenza A (H3) PCR Not detected (NOT DETECT) 01/05/24 10:30 Influenza Type A (PCR) Not detected (NOT DETECT) 01/05/24 10:30 Influenza Type B (PCR) Not detected (NOT DETECT) 01/05/24 10:30 M. pneumoniae (PCR) Not detected (NOT DETECT) 01/05/24 10:30 Parainfluenza 1 (PCR) Not detected (NOT DETECT) 01/05/24 10:30 Parainfluenza 2 (PCR) Not detected (NOT DETECT) 01/05/24 10:30 Parainfluenza 3 (PCR) Not detected (NOT DETECT) 01/05/24 10:30 Parainfluenza 4 (PCR) Not detected (NOT DETECT) 01/05/24 10:30 RSV Type A (PCR) Not detected (NOT DETECT) 01/05/24 10:30 RSV Type B (PCR) Not detected (NOT DETECT) 01/05/24 10:30 Entero/Rhino (PCR) Not detected (NOT DETECT) 01/05/24 10:30 SARS-CoV-2 (PCR) Not detected (NOT DETECT) 01/05/24 10:30 Vitals Last Vital Signs Temp 98.3 F 01/06/24 07:58 Pulse 88 01/06/24 08:00 Resp 18 01/06/24 08:00 BP 150/85 01/06/24 07:58 Pulse Ox 94 01/06/24 08:00 O2 Del Method Room Air 01/06/24 08:00 O2 Flow Rate 7 01/06/24 02:00 Discharge Plan Discharge Patient Disposition: Home Condition: Stable Prescriptions: New atorvastatin 40 mg Tablet 40 mg PO BEDTIME Qty: 90 3RF methylprednisolone [Medrol (Chip)] 4 mg tablets,dose pack See Rx Instructions .ROUTE .COMPLEX Qty: 21 0RF Rx Instructions: orally per package directions lisinopril 20 mg tablet 20 mg PO DAILY Qty: 30 4RF fluticasone propion-salmeterol [Advair HFA] 115-21 mcg/actuation HFA aerosol inhaler 2 inh inhalation BID Qty: 12 3RF Continued carvedilol 3.125 mg tablet 6.25 mg PO BID Qty: 180 3RF aspirin 81 mg Tablet,Delayed Release (Dr/Ec) 81 mg PO DAILY Qty: 90 0RF nitroglycerin 0.4 mg Tablet, Sublingual 0.4 mg sublingual Q5M PRN (Reason: Chest Pain) Qty: 25 0RF albuterol sulfate 90 mcg/actuation Hfa Aerosol Inhaler 2 puff INHALATION QID PRN (Reason: Shortness Of Breath) Spiriva Respimat 2.5 mcg/actuation mist 2 puff INHALATION DAILY Qty: 4 4RF Discharge Orders: Discharge Order (Routine); Ordered 01/06/24 Ordered By: Mo Ovalle Referrals: Laureen Hirsch FNP [Primary Care Provider] - 7-10 days Discharge Diet: Cardiac Discharge Activity: Increase activity as tolerated Patient Instructions: Opioid Safety Discharge Attestations Time Spent in Discharge Care*: greater than 30 min Quality Metrics Clinical Quality Measures [ No reported AMI, CVA or VTE this stay] Coding Level of Care Code Acute Code for Chg Fwd Diagnoses Chest pain R07.9 Dyslipidemia E78.5 Renal artery stenosis I70.1 COPD exacerbation J44.1
== END 2024-01-06 11:47 | disposition home or self-care (01) | DRG 287 ==
LOC: ER 17:31 → MEDSURG 18:17 → ICU 01-05 19:12
PROVIDERS: Internal Medicine; Admitting Provider Family Medicine; Emergency Provider Family Medicine; PCP Nurse Practitioner Family; Visit Provider Family Medicine
PROC: B2111ZZ Fluoroscopy of Multiple Coronary Arteries using Low Osmolar Contrast (ICD-10-PCS; principal; 2024-01-05 15:00)
DX: R07.9 Chest pain, unspecified (principal); J44.1 Chronic obstructive pulmonary disease with (acute) exacerbation; Z11.52 Encounter for screening for COVID-19; I10 Essential (primary) hypertension; I25.10 Atherosclerotic heart disease of native coronary artery without angina pectoris; Z95.5 Presence of coronary angioplasty implant and graft; Z87.891 Personal history of nicotine dependence; Z95.820 Peripheral vascular angioplasty status with implants and grafts; Z79.82 Long term (current) use of aspirin; E78.5 Hyperlipidemia, unspecified; I70.1 Atherosclerosis of renal artery
CPT/HCPCS: 36415; 70450; 71045; 71275; 80053; 80061; 81003; 81015; 83036; 83735; 83880; 84100; 84145; 84443; 84484; 85025; 86140; 87486; 87581; 87633; 93005; 93306; 93458; 94640; 94664; 96372; 96374; 96376; 99152; 99153; 99285; C1769; C1887; C1894; J0456; J0696; J1100; J1644; J1650; J2250; J2470; J2919; J3010; J3490; J7030; J7050; J7626; Q0163; Q9967

== ENCOUNTER 2024-01-27 13:00 | Outpatient (CLI) | payer BC, MEDICAID, SELFPAY ==
--- NOTE | 2024-01-27 13:08 | CTR_ITS ---
PROCEDURE INFORMATION: Exam: CT Chest Without Contrast; Diagnostic Exam date and time: 01/27/2024 1:17 PM Age: 63 years old Clinical indication: Abnormal findings; Abnormal radiologic exam of lung or chest; Patient HX: Pain in back of neck radiating down left arm to elbow, heaviness in center of chest. SOB with exertion, BP up and down. F. U on lung nodules; Additional info: Abnormal findings on diagnostic imaging of lung TECHNIQUE: Imaging protocol: Diagnostic computed tomography of the chest without contrast. Radiation optimization: All CT scans at this facility use at least one of these dose optimization techniques: automated exposure control; mA and/or kV adjustment per patient size (includes targeted exams where dose is matched to clinical indication); or iterative reconstruction. COMPARISON: CT angio chest PE protcl [id number] 01/04/2024 5:42 PM RADIATION DOSE METRICS: Total DLP (mGy-cm): 273.73 FINDINGS: Lungs: Calcified granulomas throughout the lungs are benign. Severe centrilobular emphysematous changes are present. Bilateral bronchial wall thickening, likely due to chronic bronchitis. Linear scarring right lung base. No concerning lung nodules. Pleural spaces: Unremarkable. No pneumothorax. No pleural effusion. Heart: No cardiomegaly. Coronary arteries: Stent in the RCA. Mediastinal space: Calcified hilar granulomas, benign. Scattered calcified granulomas throughout the mediastinum are benign. Lymph nodes: No concerning mediastinal, hilar, or axillary adenopathy by CT size criteria. Vasculature: Mild diffuse calcific atherosclerosis of the aorta. No aortic aneurysms. Partially seen right renal artery ostial stent. Spleen: The spleen demonstrates punctate calcifications, consistent with remote granulomatous organism exposure. Bones/joints: There are healed left rib fractures. Moderate multilevel degenerative changes of the spine. Soft tissues: No acute body wall soft tissue findings. CT/CT chest wo con [id number] IMPRESSION: No acute findings. COMMENTS: The presence of pulmonary emphysema on CT is an independent risk factor for lung cancer. In the absence of a history or active diagnosis of lung cancer, it is recommended that this patient with emphysema be evaluated for enrollment in a low dose CT lung cancer screening program.
== END 2024-01-27 13:04 | disposition home or self-care (01) ==
PROVIDERS: PCP Nurse Practitioner Family; Visit Provider Nurse Practitioner Family
DX: R91.8 Other nonspecific abnormal finding of lung field (principal); J84.10 Pulmonary fibrosis, unspecified; J43.2 Centrilobular emphysema; J98.4 Other disorders of lung; Z95.5 Presence of coronary angioplasty implant and graft
CPT/HCPCS: 71250

== ENCOUNTER 2025-04-02 09:34 | Outpatient (CLI) | payer MEDICARE, MEDICAID, SELFPAY ==
--- NOTE | 2025-04-02 09:38 | CT_ITS ---
WS: [id number] LD[facility] LUNG CANCER SCREENING TECHNIQUE: Noncontrast CT of the chest with coronal and sagittal reformatted images. CLINICAL INFORMATION: NICOTINE DEPENDENCE, CIGARETTES COMPARISON: None. DLP: 55.59 mGy.cm DIvol: Mean CTDIvol: 0.80 (mGy) All CT scans at [facility] use at least one of these dose optimization techniques: automated exposure control; mA and/or kV adjustment per patient size (includes targeted exams where dose is matched to clinical indication); or iterative reconstruction. FINDINGS: Hyperinflation centrilobular emphysema. Few calcified granulomas. Previously described pleural based nodule RIGHT upper lobe is no longer visualized. 4 mm pleural-based nodule RIGHT middle lobe. This is unchanged. No new suspicious pulm parenchymal abnormalities. Aortic calcification. Normal caliber thoracic aorta. No mediastinal or hilar lymphadenopathy. Calcified hilar and subcarinal lymph nodes. No axillary lymphadenopathy. Adrenal glands are normal. Mild thoracic curve. Mild thoracic kyphosis. CT/CT lung screening [id number] IMPRESSION: LUNG-RADS: 2-Benign Appearance or Behavior FOLLOW UP: 12 Month: Continue annual screening with LDCT
== END 2025-04-02 09:35 | disposition home or self-care (01) ==
LOC: RAD 09:35
PROVIDERS: PCP Nurse Practitioner Family; Visit Provider Nurse Practitioner Family
DX: Z12.2 Encounter for screening for malignant neoplasm of respiratory organs (principal); F17.210 Nicotine dependence, cigarettes, uncomplicated; J43.2 Centrilobular emphysema; J84.10 Pulmonary fibrosis, unspecified; M40.04 Postural kyphosis, thoracic region; M40.204 Unspecified kyphosis, thoracic region
CPT/HCPCS: 71271

== ENCOUNTER → 2025-04-13 15:49 | Outpatient (BNVA) | payer MEDICARE, MEDICAID, SELFPAY | PROVIDERS: PCP Nurse Practitioner Family; Referring Provider Nurse Practitioner Family; Visit Provider Internal Medicine | DX: J44.89 Other specified chronic obstructive pulmonary disease (principal); J43.9 Emphysema, unspecified; R91.1 Solitary pulmonary nodule; J30.89 Other allergic rhinitis; T50.995A Adverse effect of other drugs, medicaments and biological substances, initial encounter; X58.XXXA Exposure to other specified factors, initial encounter; R23.8 Other skin changes; Z87.891 Personal history of nicotine dependence; T78.40XA Allergy, unspecified, initial encounter; J44.9 Chronic obstructive pulmonary disease, unspecified | CPT/HCPCS: 99204; Q3014 ==